=== PATIENT | male | born 1955 | race Caucasian/White ===

== ENCOUNTER 2018-04-16 12:30 | Emergency (ER) | payer BC ==
[2018-04-16 13:09] VITALS: RESP 18
[2018-04-16] MEDS ORDERED: HYDROcodone/APAP 5-325MG 1 EACH TAB PO STA (13:46)
--- NOTE | 2018-04-16 14:23 | XR ---
Left wrist 4 views. History pain after falling. Comparison none. FINDINGS: There is mild deformity of the distal radius that could relate to old fracture. I see no acute fractu re nor dislocation. Scaphoid is intact. There is mild spurring at the first carpometacarpal joint. IMPRESSION: No acute abnormality of the left wrist.
--- NOTE | 2018-04-16 14:24 | XR ---
Left shoulder 3 views. History pain after falling. Comparison none. FINDINGS: There is comminuted fractures of the midshaft of the clavicle. There is 50% offset of the major fragm ents. The glenohumeral joint is anatomic. Proximal humerus is intact. Scapula appears intact. IMPRESSION: Comminuted clavicle fracture.
[2018-04-16] MEDS ORDERED: ACET/COD 300 MG/30 MG STARTER PACK 6 TAB BTL PO STA (15:14)
--- NOTE | 2018-04-16 15:15 | ED ---
Upper Extremity HPI - General Chief Complaint: Extremity Injury, Upper Stated Complaint: fall/shoulder pain Time Seen by Provider: 04/16/18 13:14 Source: patient Mode of arrival: ambulatory Limitations: no limitations - History of Present Illness Initial Comments: Pleasant well appearing 63yo male presenting today for cc of left shoulder pain status post fall. Patient states at 12 PM this afternoon he fell on his left shoulder after slipping on ice. Patient states he did hit his head but he states it was slightly-he denies any headache nausea vomiting or neck pain. Patient states most his pain is in the shoulder especially with palpation over the clavicle. Patient denies any numbness, tingling or loss sensation of the upper extremities, patient denies any low back or thoracic back pain. Patient denies any lower extremity pain, numbness tingling or loss sensation of the upper or lower extremities. Patient states he is unable to move the left shoulder secondary to pain, he states he does have some pain at the left wrist but not as severe as the left shoulder. Remaining review of systems negative, patient denies any recent fever, chills, shortness of breath, chest pain, back pain, abdominal pain, dysuria or hematuria, constipation or diarrhea, headaches or visual changes, or any other complaints. Upon arrival patient's vital signs are within normal limits. Patient is not appearing acute distress. - Related Data Home Medications Medication Instructions Recorded Confirmed Krill Oil 500 mg PO DAILY 04/16/18 04/16/18 Multivitamins, Thera [Multivitamin 1 tab PO DAILY 04/16/18 04/16/18 (formulary)] Ubidecarenone [Co Q-10] 100 mg PO DAILY 04/16/18 04/16/18 Allergies Allergy/AdvReac Type Severity Reaction Status Date / Time No Known Allergies Allergy Verified 04/16/18 13:31 Review of Systems ROS Statement: Those systems with pertinent positive or pertinent negative responses have been documented in the HPI. ROS Other: All systems not noted in ROS Statement are negative. Past Medical History Past Medical History: No Reported History History of Any Multi-Drug Resistant Organisms: None Reported Past Surgical History: No Surgical Hx Reported Past Psychological History: No Psychological Hx Reported Smoking Status: Never smoker Past Alcohol Use History: None Reported Past Drug Use History: None Reported General Exam - General Exam Comments Initial Comments: General: The patient is awake and alert, in no distress, and does not appear acutely ill. Eye: +# mm pupils are equal, round and reactive to light, extra-ocular movements are intact. No nystagmus. There is normal conjunctiva bilaterally. No signs of icterus. Ears, nose, mouth and throat: There are moist mucous membranes and no oral lesions. Neck: The neck is supple, there is no tenderness or JVD. Cardiovascular: There is a regular rate and rhythm. No murmur, rub or gallop is appreciated. Respiratory: Lungs are clear to auscultation, respirations are non-labored, breath sounds are equal. No wheezes, stridor, rales, or rhonchi. Musculoskeletal: Upon inspection of the left shoulder there is no gross deformity or tenting of the clavicle. Patient is tender to palpation of the left clavicle and anterior shoulder. No tenderness to palpation of the scapula. Patient has no tenderness to palpation of the elbow, he is tender to palpation over the left wrist. Patient is able to fully range at the left elbow and left wrist without limitations of range of motion. There is no scaphoid tenderness. Patient is able to make the okay fingers crossed thumbs- up and extend at the wrist bilaterally ulnar median and radial nerve appear intact. Patient has intact finger opposition. Patient has no bad anesthesia. He has full sensation of the upper extremities equal and comparison bilaterally. Capillary refill is less than 2 seconds. Radial pulses are +2 equal bilaterally. There is no midline tenderness to palpation of the cervical spine. There is no midline tenderness to patient of the lower thoracic and lumbar spine. Patient has no paravertebral tenderness. Patient has final 5 strength of lower extremities equal bilaterally. Neurological: A&O x 3. CN II-XII intact, There are no obvious motor or sensory deficits. Coordination appears grossly intact. Speech is normal. Skin: Skin is warm and dry and no rashes or lesions are noted. Psychiatric: Cooperative, appropriate mood & affect, normal judgment. Limitations: no limitations Course Vital Signs 04/16/18 04/16/18 13:07 15:13 Temperature 98.2 F 98.0 F Pulse Rate 84 73 Respiratory 18 18 Rate Blood Pressure 116/75 123/91 O2 Sat by Pulse 96 98 Oximetry - Reevaluation(s) Reevaluation #1: Patient refused CAT scan of the head and neck stating he does not feel this is necessary, he denies any neck pain or headache. He states he did not hit his head hard and this would be a waste of money. I did discuss risks involved without imaging studies, patient states he would like to avoid extra costs and does not want any imaging studies of his neck or head. She does not have any focal neurological deficits or midline titers patient of the cervical spine. 04/16/18 Medical Decision Making - Medical Decision Making 63-year-old male presenting for left shoulder pain. Patient did have mild head injury, denied any neurological symptoms. No focal neurological deficits. He did refuse CAT scan of the head or neck. Patient x-ray revealed a comminuted left clavicle fracture, there is no tenting. Patient is neurovascular intact. At this time after reviewing imaging studies with attending provider Dr. Dominic Love he recommended sling and discharged with orthopedic follow-up. Patient is agreeable plan and discharge patient given pain medications in the emergency department. Disposition Clinical Impression: Fracture of left clavicle Disposition: HOME SELF-CARE Condition: Good Instructions (If sedation given, give patient instructions): Clavicle Fracture (ED) Additional Instructions: Please use medication as discussed. Please follow-up with surgery within the next 1-2 days.. Please return to emergency room if the symptoms increase or worsen or for any other concerns, numbness, tingling loss sensation, coolness or pallor of the extremity, pain appears out of proportion. Is patient prescribed a controlled substance at d/c from ED?: No Referrals: Duke Winkler MD [Primary Care Provider] - 1-2 days Chung Santos DO [Doctor of Osteopathic Medicine] - 1-2 days Time of Disposition: 15:14
[2018-04-16 15:18] VITALS: BP 123/91; PULSE 73; TEMP 98
== END 2018-04-16 15:39 | disposition home or self-care (01) ==
LOC: EC 12:30
DX: S42.022A Displaced fracture of shaft of left clavicle, initial encounter for closed fracture (principal); S09.90XA Unspecified injury of head, initial encounter; W00.0XXA Fall on same level due to ice and snow, initial encounter
CPT/HCPCS: 99283

== ENCOUNTER 2018-12-06 02:30 | Emergency (ER) | payer BC ==
--- NOTE | 2018-12-06 02:53 | ED ---
Chest Pain HPI - General Chief Complaint: Chest Pain Stated Complaint: Nausea,Chest Pain Time Seen by Provider: 12/06/18 02:43 Source: patient Mode of arrival: ambulatory Limitations: no limitations - History of Present Illness Initial Comments: Patient is 63-year-old man who presents to be evaluated for epigastric pain that developed approximately 2 hours ago while he was trying sleep. Patient not able to characterize the pain, but does state that it is constant and moderate in severity. He has not noted worsening factors, but he does state it feels a little better if he remains "bent over." The patient states that the pain had been preceded by having woken up feeling nauseated and then vomiting. It was shortly after the patient had vomiting that the pain developed. Patient did not see any blood or coffee-ground material. No change in bowel movements. Patient states that there is just a trace of nausea remaining but no further vomiting. MD Complaint: chest pain Onset/Timin -: hour(s) Onset: during rest Pain Location: epigastric Pain Radiation: none Severity: moderate Quality: other (Patient not able to further characterize the sensation other than pain) Consistency: constant Improves With: nothing Anginal Symptoms: nausea, vomiting Treatments Prior to Arrival: none - Related Data Home Medications Medication Instructions Recorded Confirmed Krill Oil 500 mg PO DAILY 04/16/18 04/16/18 Multivitamins, Thera [Multivitamin 1 tab PO DAILY 04/16/18 04/16/18 (formulary)] Ubidecarenone [Co Q-10] 100 mg PO DAILY 04/16/18 04/16/18 Allergies Allergy/AdvReac Type Severity Reaction Status Date / Time No Known Allergies Allergy Verified 12/06/18 02:36 Review of Systems ROS Statement: Those systems with pertinent positive or pertinent negative responses have been documented in the HPI. ROS Other: All systems not noted in ROS Statement are negative. Constitutional: Denies: fever, chills Respiratory: Denies: cough, dyspnea Cardiovascular: Reports: as per HPI, chest pain. Denies: palpitations, orthopnea, edema, syncope Gastrointestinal: Reports: as per HPI, abdominal pain, nausea. Denies: vomiting, diarrhea, melena, hematochezia Genitourinary: Denies: dysuria, hematuria Musculoskeletal: Denies: back pain Skin: Denies: rash Neurological: Denies: headache, weakness EKG Findings - EKG Results: EKG: interpreted by ALISA OLMOS, sinus rhythm, normal axis, normal QRS, normal ST/T, no acute changes EKG shows: bradycardia (Rate 57 bpm) Past Medical History Past Medical History: No Reported History History of Any Multi-Drug Resistant Organisms: None Reported Past Surgical History: No Surgical Hx Reported Past Psychological History: No Psychological Hx Reported Smoking Status: Never smoker Past Alcohol Use History: None Reported Past Drug Use History: None Reported General Exam Limitations: no limitations General appearance: alert, in no apparent distress Head exam: Present: atraumatic, normocephalic Eye exam: Present: normal appearance. Absent: scleral icterus, conjunctival injection Respiratory exam: Present: normal lung sounds bilaterally. Absent: respiratory distress, wheezes, rales, rhonchi, stridor Cardiovascular Exam: Present: regular rate, normal rhythm, normal heart sounds. Absent: systolic murmur, diastolic murmur, rubs, gallop GI/Abdominal exam: Present: soft. Absent: distended, tenderness, guarding, rebound, rigid, mass Extremities exam: Present: normal inspection, normal capillary refill. Absent: pedal edema, calf tenderness Back exam: Present: normal inspection. Absent: CVA tenderness (R), CVA tenderness (L), vertebral tenderness Neurological exam: Present: alert Skin exam: Present: warm, dry, intact, normal color. Absent: rash Course Vital Signs 12/06/18 12/06/18 12/06/18 02:35 02:54 03:05 Temperature 97.5 F L Pulse Rate 50 L 52 L Pulse Rate [ 56 L Can Bander Operator ] Respiratory 20 18 Rate Blood Pressure 112/69 117/73 O2 Sat by Pulse 99 99 Oximetry 12/06/18 03:51 Temperature Pulse Rate 55 L Pulse Rate [ Can Bander Operator ] Respiratory 16 Rate Blood Pressure 107/67 O2 Sat by Pulse 97 Oximetry Disposition Clinical Impression: Chest pain Disposition: HOME SELF-CARE Condition: Good Instructions (If sedation given, give patient instructions): Chest Pain (ED) Is patient prescribed a controlled substance at d/c from ED?: No Referrals: None,Stated [Primary Care Provider] - 1-2 days
[2018-12-06] MEDS ORDERED: MORPHINE SULFATE 4 MG/ML SYRINGE IV STA (03:00)
--- NOTE | 2018-12-06 03:05 | XR ---
EXAMINATION TYPE: XR chest 2V DATE OF EXAM: 12/06/2018 COMPARISON: NONE HISTORY: Chest pain TECHNIQUE: Frontal and lateral views of the chest are obtained. FINDINGS: Heart and mediastinum are normal. Lungs are clear. Diaphragm is normal. Bony thorax is int act. There are chest leads. There is old healed left clavicle fracture. IMPRESSION: No active cardiopulmonary disease.
[2018-12-06 03:23] LABS: Basophils % (A) 1 %; Eosinophils # (A) 0.1 k/uL (0-0.7); Eosinophils % (A) 1 %; HCT 43.7 % (39.0-53.0); Lymphocytes # (A) 1.6 k/uL (1.0-4.8); Lymphocytes % (A) 21 %; MCH 29.1 pg (25.0-35.0); MCV 90.9 fL (80.0-100.0); Mean Platelet Volume 7.1; Monocytes # (A) 0.4 k/uL (0-1.0); Monocytes % (A) 5 %; Neutrophils # (A) 5.4 k/uL (1.3-7.7); Neutrophils % (A) 70 %; Platelet Count 284 k/uL (150-450); RBC 4.81 m/uL (4.30-5.90); RDW 12.5 % (11.5-15.5); WBC 7.8 k/uL (3.8-10.6)
[2018-12-06 03:35] LABS: ALT 30 U/L (21-72); AST 32 U/L (17-59); African American GFR (CKD) >90 (>60 ml/min/1.73 sqM); Albumin 4.3 g/dL (3.5-5.0); Alkaline Phosphatase 100 U/L (38-126); Amylase 78 U/L (30-110); Anion Gap 9 mmol/L; Blood Urea Nitrogen 11 mg/dL (9-20); Calcium 9.7 mg/dL (8.4-10.2); Carbon Dioxide 29 mmol/L (22-30); Chloride 103 mmol/L (98-107); Glucose 125 mg/dL (74-99); Potassium 4.3 mmol/L (3.5-5.1); Sodium 141 mmol/L (137-145); Total Bilirubin 0.4 mg/dL (0.2-1.3); Total Protein 7.5 g/dL (6.3-8.2)
[2018-12-06 03:51] VITALS: RESP 16
[2018-12-06 03:52] LABS: Partial Thromboplastin Time 25.4 sec (22.0-30.0); Prothrombin Time 10.6 sec (9.0-12.0)
[2018-12-06 04:41] VITALS: BP 103/73; PULSE 57; TEMP 98
== END 2018-12-06 04:41 | disposition home or self-care (01) ==
LOC: EC 02:30
DX: R07.9 Chest pain, unspecified (principal); R10.13 Epigastric pain; R11.2 Nausea with vomiting, unspecified
CPT/HCPCS: 36415; 93005; 80053; 82150; 83690; 83735; 84484; 85025; 85610; 85730; 71046; 99285; 96374; J2270

== ENCOUNTER 2020-11-16 09:34 | Inpatient (IN) | payer BC, MEDICARE ==
[2020-11-16] MEDS ORDERED: ALBUTEROL HFA INHALER INHALATION STA (10:38)
[2020-11-16] MEDS ORDERED: ACETAMINOPHEN TAB 500 MG TAB PO STA (10:38)
--- NOTE | 2020-11-16 11:51 | XR ---
EXAMINATION TYPE: XR chest 1V portable DATE OF EXAM: 11/16/2020 COMPARISON: 12/06/2018 HISTORY: 65 years Male. STUDY INDICATION GIVEN: Suspected COVID-19 pneumonia . TECHNIQUE: Portable chest radiograph IMPRESSION: No specific bibasilar patchy opacities could be on the basis of atypical pneumonia or atelectasis. No focal consolidation, pneumothorax or pleural effusion seen. Normal cardiomediastinal silhouette. No acute osseous abnormality. Round well-defined density projects over the right humerus and just inferior to the acromion, was not seen on prior chest radiograph, could represent a loose body or perhaps this may be external to the patient.
[2020-11-16] MEDS: DEXAMETHASONE SOD PHOSPHATE 10 MG/ML 1 ML VIAL IV SCH (11:55)
[2020-11-16 12:24] LABS: Basophils % (A) 0 %; Eosinophils % (A) 0 %; HCT 38.4 % (39.0-53.0); HGB 13.8 gm/dL (13.0-17.5); Hyperchromasia Slight; Lymphocytes # (A) 0.7 k/uL (1.0-4.8); Lymphocytes % (A) 13 %; MCH 30.5 pg (25.0-35.0); MCHC 35.9 g/dL (31.0-37.0); MCV 85.1 fL (80.0-100.0); Monocytes # (A) 0.2 k/uL (0-1.0); Monocytes % (A) 5 %; Neutrophils % (A) 80 %; Platelet Count 201 k/uL (150-450); RBC 4.51 m/uL (4.30-5.90)
--- NOTE | 2020-11-16 12:29 | ED ---
SOB HPI - General Chief Complaint: Shortness of Breath Stated Complaint: diarrhea/vomiting Source: patient Mode of arrival: ambulatory Limitations: no limitations - History of Present Illness Initial Comments: 65-year-old male with no reported past history of present to emergency room with reported shortness of breath. Patient states that for the past one week he has been short of breath with a cough. He also states that he is not eating due to nausea, vomiting and diarrhea. He denies sick contacts with similar symptoms. Denies shortness of breath. No previous history of cardiac or pulmonary issues. He is not vaccinated against Covid. Denies any chest pain. Upon arrival patient's oxygen saturation saturations are 85%. Denies history of COPD, congestive heart failure. No other alleviating, precipitating or modifying factors - Related Data Home Medications Medication Instructions Recorded Confirmed Ascorbic Acid [Vitamin C] 500 mg PO DAILY 11/16/20 11/16/20 Cholecalciferol [Vitamin D3 (25 25 mcg PO DAILY 11/16/20 11/16/20 Mcg = 1000 Iu)] Zinc 50 mg PO DAILY 11/16/20 11/16/20 Allergies Allergy/AdvReac Type Severity Reaction Status Date / Time No Known Allergies Allergy Verified 11/16/20 11:41 Review of Systems ROS Statement: Those systems with pertinent positive or pertinent negative responses have been documented in the HPI. ROS Other: All systems not noted in ROS Statement are negative. Past Medical History Past Medical History: No Reported History History of Any Multi-Drug Resistant Organisms: None Reported Past Surgical History: No Surgical Hx Reported Past Psychological History: No Psychological Hx Reported Smoking Status: Never smoker Past Alcohol Use History: None Reported Past Drug Use History: None Reported General Exam Limitations: no limitations Course Vital Signs 11/16/20 11/16/20 11/16/20 09:41 09:43 11:59 Temperature 97.3 F L Pulse Rate 94 84 Respiratory 26 H 22 18 Rate Blood Pressure 114/75 113/79 O2 Sat by Pulse 85 L 96 Oximetry 11/16/20 15:57 Temperature Pulse Rate 90 Respiratory 18 Rate Blood Pressure 100/62 O2 Sat by Pulse 96 Oximetry Medical Decision Making - Medical Decision Making Upon arrival patient was placed into room 4. There are history and physical exam was performed. Patient is placed on 5 L of oxygen via nasal cannula with improvement in his oxygenation. IV is established. Laboratory studies are conduct his. D-dimer 0.79. Lactic acid 2.3. Creatinine highly elevated at 1.4. Covid is detected. Chest x-ray is performed which demonstrates IVs are patchy opacities. Patient is sent back for a CT which does demonstrate scattered patchy peripheral groundglass opacities. COPD with mild emphysema. I discussed results the patient. He is adamant that he wants to go home at this time. I did call and seek with the patient's . She has called and speak with additional family members. Patient is able to speak with his family who do recommend that he stay due to his hypoxia. Patient does agree to stay. I did order Remdesmivir, 6 mg of Decadron and an albuterol inhaler. Spoke with Dr. Lawrence who agreed to admit the patient. He is currently awaiting a bed on the floor - Lab Data Result diagrams: 11/16/20 11:58 11/16/20 11:58 Lab Results 11/16/20 11/16/20 11/16/20 Range/Units 10:29 11:58 11:58 WBC 5.0 (3.8-10.6) k/uL RBC 4.51 (4.30-5.90) m/uL Hgb 13.8 (13.0-17.5) gm/dL Hct 38.4 L (39.0-53.0) % MCV 85.1 (80.0-100.0) fL MCH 30.5 (25.0-35.0) pg MCHC 35.9 (31.0-37.0) g/dL RDW 13.0 (11.5-15.5) % Plt Count 201 (150-450) k/uL MPV 9.0 Neutrophils % 80 % Lymphocytes % 13 % Monocytes % 5 % Eosinophils % 0 % Basophils % 0 % Neutrophils # 4.0 (1.3-7.7) k/uL Lymphocytes # 0.7 L (1.0-4.8) k/uL Monocytes # 0.2 (0-1.0) k/uL Eosinophils # 0.0 (0-0.7) k/uL Basophils # 0.0 (0-0.2) k/uL Hyperchromasia Slight PT (9.0-12.0) sec INR (<1.2) APTT (22.0-30.0) sec D-Dimer (<0.60) mg/L FEU Sodium (137-145) mmol/L Potassium (3.5-5.1) mmol/L Chloride (98-107) mmol/L Carbon Dioxide (22-30) mmol/L Anion Gap mmol/L BUN (9-20) mg/dL Creatinine (0.66-1.25) mg/dL Est GFR (CKD-EPI)AfAm (>60 ml/min/1.73 sqM) Est GFR (CKD-EPI)NonAf (>60 ml/min/1.73 sqM) Glucose (74-99) mg/dL Lactic Ac Sepsis Rflx Plasma Lactic Acid Manuel (0.7-2.0) mmol/L Calcium (8.4-10.2) mg/dL Magnesium (1.6-2.3) mg/dL Total Bilirubin (0.2-1.3) mg/dL AST (17-59) U/L ALT (4-49) U/L Alkaline Phosphatase (38-126) U/L Troponin I <0.012 (0.000-0.034) ng/mL Total Protein (6.3-8.2) g/dL Albumin (3.5-5.0) g/dL Coronavirus (PCR) Detected A (Not Detectd) 11/16/20 11/16/20 11/16/20 Range/Units 11:58 11:58 11:58 WBC (3.8-10.6) k/uL RBC (4.30-5.90) m/uL Hgb (13.0-17.5) gm/dL Hct (39.0-53.0) % MCV (80.0-100.0) fL MCH (25.0-35.0) pg MCHC (31.0-37.0) g/dL RDW (11.5-15.5) % Plt Count (150-450) k/uL MPV Neutrophils % % Lymphocytes % % Monocytes % % Eosinophils % % Basophils % % Neutrophils # (1.3-7.7) k/uL Lymphocytes # (1.0-4.8) k/uL Monocytes # (0-1.0) k/uL Eosinophils # (0-0.7) k/uL Basophils # (0-0.2) k/uL Hyperchromasia PT 9.9 (9.0-12.0) sec INR 0.9 (<1.2) APTT 24.1 (22.0-30.0) sec D-Dimer 0.79 H (<0.60) mg/L FEU Sodium 135 L (137-145) mmol/L Potassium 4.1 (3.5-5.1) mmol/L Chloride 103 (98-107) mmol/L Carbon Dioxide 20 L (22-30) mmol/L Anion Gap 12 mmol/L BUN 52 H (9-20) mg/dL Creatinine 1.42 H (0.66-1.25) mg/dL Est GFR (CKD-EPI)AfAm 60 (>60 ml/min/1.73 sqM) Est GFR (CKD-EPI)NonAf 52 (>60 ml/min/1.73 sqM) Glucose 138 H (74-99) mg/dL Lactic Ac Sepsis Rflx Plasma Lactic Acid Manuel 2.3 H* (0.7-2.0) mmol/L Calcium 8.7 (8.4-10.2) mg/dL Magnesium 2.4 H (1.6-2.3) mg/dL Total Bilirubin 0.7 (0.2-1.3) mg/dL AST 92 H (17-59) U/L ALT 30 (4-49) U/L Alkaline Phosphatase 63 (38-126) U/L Troponin I (0.000-0.034) ng/mL Total Protein 6.8 (6.3-8.2) g/dL Albumin 3.8 (3.5-5.0) g/dL Coronavirus (PCR) (Not Detectd) 11/16/20 Range/Units 12:57 WBC (3.8-10.6) k/uL RBC (4.30-5.90) m/uL Hgb (13.0-17.5) gm/dL Hct (39.0-53.0) % MCV (80.0-100.0) fL MCH (25.0-35.0) pg MCHC (31.0-37.0) g/dL RDW (11.5-15.5) % Plt Count (150-450) k/uL MPV Neutrophils % % Lymphocytes % % Monocytes % % Eosinophils % % Basophils % % Neutrophils # (1.3-7.7) k/uL Lymphocytes # (1.0-4.8) k/uL Monocytes # (0-1.0) k/uL Eosinophils # (0-0.7) k/uL Basophils # (0-0.2) k/uL Hyperchromasia PT (9.0-12.0) sec INR (<1.2) APTT (22.0-30.0) sec D-Dimer (<0.60) mg/L FEU Sodium (137-145) mmol/L Potassium (3.5-5.1) mmol/L Chloride (98-107) mmol/L Carbon Dioxide (22-30) mmol/L Anion Gap mmol/L BUN (9-20) mg/dL Creatinine (0.66-1.25) mg/dL Est GFR (CKD-EPI)AfAm (>60 ml/min/1.73 sqM) Est GFR (CKD-EPI)NonAf (>60 ml/min/1.73 sqM) Glucose (74-99) mg/dL Lactic Ac Sepsis Rflx Y Plasma Lactic Acid Manuel (0.7-2.0) mmol/L Calcium (8.4-10.2) mg/dL Magnesium (1.6-2.3) mg/dL Total Bilirubin (0.2-1.3) mg/dL AST (17-59) U/L ALT (4-49) U/L Alkaline Phosphatase (38-126) U/L Troponin I (0.000-0.034) ng/mL Total Protein (6.3-8.2) g/dL Albumin (3.5-5.0) g/dL Coronavirus (PCR) (Not Detectd) - EKG Data EKG Comments: EKG demonstrates normal sinus rhythm with a ventricular rate 87. QRS 72. QTC of 425. Significant baseline artifact. No acute ST segment elevations or depressions appreciated Disposition Clinical Impression: COVID-19, Hypoxia Disposition: ADMITTED IP TO THIS HOSP Condition: Serious Is patient prescribed a controlled substance at d/c from ED?: No Decision to Admit Reason: Admit from EC Decision Date: 11/16/20 Decision Time: 15:43
[2020-11-16 12:34] LABS: Albumin 3.8 g/dL (3.5-5.0); Calcium 8.7 mg/dL (8.4-10.2); Magnesium 2.4 mg/dL (1.6-2.3); Potassium 4.1 mmol/L (3.5-5.1); Total Bilirubin 0.7 mg/dL (0.2-1.3); Total Protein 6.8 g/dL (6.3-8.2)
[2020-11-16 12:49] LABS: INR 0.9 (<1.2); Partial Thromboplastin Time 24.1 sec (22.0-30.0); Prothrombin Time 9.9 sec (9.0-12.0)
[2020-11-16] MEDS ORDERED: SODIUM CHLORIDE 0.9% 500 ML 500 ML IV ONE (13:21)
[2020-11-16] MEDS ORDERED: diphenhydrAMINE 50 MG/ML 1 ML VIAL IVP STA (14:04)
[2020-11-16] MEDS ORDERED: METOCLOPRAMIDE 5 MG/ML 2 ML VIAL IVP STA (14:04)
--- NOTE | 2020-11-16 14:11 | CT ---
EXAMINATION TYPE: CT chest angio for PE DATE OF EXAM: 11/16/2020 COMPARISON: Radiograph same day HISTORY: 65-year-old male Shortness of breath. TECHNIQUE: Contiguous axial scanning of the chest performed with IV Contrast, patient injected with 1 00 mL of Isovue 370. Coronal/sagittal MIP reconstructions performed. CT DLP: 307.7 mGycm Automated exposure control for dose reduction was used. FINDINGS: Heart normal size without pericardial effusion. Borderline ectasia ascending aorta at 3.5 cm. Dimension arch vessel branching anatomy. Mild atheroscl erotic arch calcifications. Numerous scattered nonenlarged mediastinal lymph nodes. Some of these are prominent measuring up to 8 mm, upper right paratracheal and 1.0 cm subcarinal. Satisfactory opacification of the pulmonary arterial system without evidence for pulmonary embolus. Biapical pleural-parenchymal scarring. Focal opacity posterior right apex measures 1.7 cm. Scattered patchy peripheral groundglass changes are present, greatest in the lower lungs. There is al so some mild bronchiolectasis is noted in the lower lungs. Mild centrilobular emphysema. Left kidney asymmetrically atrophic. 1.7 cm hypodensity central right liver lobe likely a cyst. Bones: Mild degenerative disc disease mid thoracic spine. IMPRESSION: 1. NO EVIDENCE FOR PULMONARY EMBOLUS. 2. SCATTERED PATCHY PERIPHERAL GROUNDGLASS. MORE CONFLUENT GROUNDGLASS IN THE LOWER LUNGS. SOME DIFFE RENTIAL CONSIDERATIONS INCLUDE COVID PNEUMONIA, HYPERSENSITIVITY PNEUMONITIS, AND INTERSTITIAL PNEUMO NITIS SUCH NSIP, FINANCIAL ADMINISTRATOR, OR DIP. 3. COPD WITH MILD EMPHYSEMA. THERE IS BIAPICAL PLEURAL PARENCHYMAL SCARRING BUT A MORE FOCAL 1.7 CM D ENSITY IN THE POSTERIOR RIGHT APEX. SCARRING IS SUSPECTED. A [address] MON[address] FOLLOW-UP CT TO ENSURE STABILITY .
[2020-11-16] MEDS ORDERED: IBUPROFEN 400 MG TAB PO PRN (15:43)
[2020-11-16] MEDS ORDERED: ACETAMINOPHEN TAB 325 MG TAB PO PRN (15:43)
[2020-11-16] MEDS ORDERED: NALOXONE 0.4 MG/ML 1 ML VIAL IV PRN (15:43)
[2020-11-16] MEDS ORDERED: REMDESIVIR 200 MG in SODIUM CHLORIDE 0.9% 250 ML IVPB ONE (16:30)
[2020-11-16] MEDS ORDERED: ALPRAZolam 0.25 MG TAB PO PRN (17:14)
[2020-11-16] MEDS ORDERED: HYDROcodone/APAP 5-325MG 1 EACH TAB PO PRN (17:14)
[2020-11-16] MEDS ORDERED: TEMAZEPAM 15 MG CAP PO PRN (17:14)
--- NOTE | 2020-11-16 18:12 | HP ---
HISTORY AND PHYSICAL DATE OF SERVICE: 11/16/2020. CHIEF COMPLAINTS: Shortness of breath, diarrhea, vomiting. HISTORY OF PRESENT ILLNESS: This 65-year-old gentleman with a past medical history of no significant medical issues apparently not being followed by any family physician in the outpatient setting was not feeling well for the past several days. Patient initially had showed cough and shortness of breath for the last 4 days which is increasing in intensity. The patient also has nausea, vomiting, diarrhea also. The patient is not eating anything. Patient came to [facility] and found to be hypoxic at 85% on room air and the patient also had Covid 19 positive. D-dimer was positive. The patient also had elevated inflammatory markers. Lactic acid also elevated and creatinine is 1.42. The patient also had a chest CTA which was reviewed personally by me showed scattered patchy opacities and some COPD also highly suggestive of Covid 19 interstitial pneumonia. The patient admitted for further evaluation and treatment. Apparently multiple members of family including the patient's brother, [id number] and niece of Covid 19 last year. The patient has not taken the vaccine yet. There is no history of rigors or chills. No history of headache, loss of consciousness or seizures at this time. PAST MEDICAL HISTORY: No history of any medical or surgical issues. MEDICATIONS: None. ALLERGIES: None. FAMILY HISTORY: History of Covid 19 as mentioned earlier, otherwise no history of any heart disease or strokes in the family. SOCIAL HISTORY: No history of smoking, no history of alcohol intake. REVIEW OF SYSTEMS: ENT: No diminished vision. No diminished hearing. CARDIOVASCULAR as mentioned earlier. RESPIRATORY: As mentioned earlier. GI: No nausea, no vomiting. no dysuria or hematuria. NERVOUS SYSTEM: No numbness or weakness. ALLERGY/IMMUNOLOGY: No history of asthma or hayfever. MUSCULOSKELETAL: As mentioned earlier. HEMATOLOGY/ONCOLOGY: No history of anemia. ENDOCRINE: No history of diabetes or hypothyroidism. CONSTITUTIONAL: As mentioned earlier. DERMATOLOGY: Negative. RHEUMATOLOGY: Negative. PSYCHIATRIC: As mentioned earlier. PHYSICAL EXAMINATION: Alert and oriented times three. Pulse is 94. Blood pressure 140/75. Respirations 23. Temperature 97.3, pulse ox 84 percent on room air. HEENT: Conjunctivae normal. Oral mucosa moist. NECK is no JVD. No carotid bruit. No lymph node enlargement. CARDIOVASCULAR system: S1, S2 muffled. RESPIRATION: Breath sounds diminished in the bases. A few scattered rhonchi. ABDOMEN: Soft, nontender. LEGS no edema. No swelling. NERVOUS SYSTEM: Higher functions as mentioned earlier. Moves all four limbs. No focal motor or sensory deficits. LYMPHATICS: No lymph nodes palpable in the neck, axillae or groin. SKIN: No ulcer, no rash and no bleeding. JOINTS: No active deforming arthropathy. LABS: WBC 5, hemoglobin 13.8. Sodium 135, potassium 4.1. Glucose 138. Lactic acid is 2.3. Magnesium is 2.4. ASSESSMENT: 1. Acute COVID-19 infection as well as acute bilateral interstitial pneumonia with acute hypoxic respiratory failure, present on admission. 2. Acute renal failure with severe from acute tubular necrosis, dehydration, present on admission. 3. Nausea, vomiting, diarrhea, possibly secondary to Covid 19. 4. Hyponatremia. 5. Elevated lactic acid secondary from Covid 19 and dehydration. 6. Elevated AST. 7. Elevated D-dimer without any evidence of any acute pulmonary embolism. 8. FULL CODE. RECOMMENDATIONS: This 65-year-old gentleman who presented with multiple complex medical issues, we will monitor the patient closely, continue the current medications, management and symptomatic treatment. Otherwise, at this time, I would recommend Remdesivir, Dexamethasone, Lovenox, vitamin supplements, may consult with Pulmonology and we will continue to monitor the IV fluids. Prognosis guarded because of multiple complex medical issues. Further recommendations to follow. I would also recommend the patient follow up with primary physician closely after discharge. MMODL / IJN: [id number] /
[2020-11-16] MEDS: SODIUM CHLORIDE 0.9% 1,000 ML IV SCH ×2 (20:36→23:17)
[2020-11-16] MEDS: ENOXAPARIN 40 MG/0.4 ML SYRINGE SQ SCH (20:37)
[2020-11-16] MEDS: ZINC SULFATE 220 MG CAP PO SCH (20:37)
[2020-11-16] MEDS: PANTOPRAZOLE 40 MG/10 ML VIAL IVP SCH (20:37)
[2020-11-16] MEDS: CHOLECALCIFEROL 25 MCG (1000 IU) TABLET PO SCH (20:37)
[2020-11-16] MEDS: ASCORBIC ACID 500 MG TAB PO SCH (20:37)
[2020-11-16] MEDS: ALBUTEROL HFA INHALER INHALATION SCH (20:40)
[2020-11-17 06:02] LABS: Basophils % (A) 0 %; Eosinophils % (A) 0 %; HCT 32.6 % (39.0-53.0); HGB 11.5 gm/dL (13.0-17.5); Hyperchromasia Slight; Lymphocytes # (A) 0.8 k/uL (1.0-4.8); Lymphocytes % (A) 20 %; MCH 29.7 pg (25.0-35.0); MCHC 35.3 g/dL (31.0-37.0); MCV 84.2 fL (80.0-100.0); Mean Platelet Volume 9.5; Monocytes # (A) 0.2 k/uL (0-1.0); Monocytes % (A) 5 %; Neutrophils # (A) 2.9 k/uL (1.3-7.7); Neutrophils % (A) 72 %; Platelet Count 143 k/uL (150-450); RBC 3.87 m/uL (4.30-5.90)
[2020-11-17 07:04] LABS: Appearance,Urine Clear (Clear); Bacteria,Urine Rare /hpf; Bilirubin,Urine Negative (Negative); Blood,Urine Moderate (Negative); Color,Urine Yellow; Glucose,Urine (UA) Negative (Negative); Hyaline Casts,Urine 3 /lpf (0-2); Ketones,Urine Negative (Negative); Leukocyte Esterase,Urine Negative (Negative); Mucus,Urine Rare /hpf; Nitrite,Urine Negative (Negative); Protein,Urine 2+ (Negative); RBC,Urine 6 /hpf (0-5); Urobilinogen,Urine <2.0 mg/dL (<2.0); WBC,Urine <1 /hpf (0-5)
[2020-11-17] MEDS: PANTOPRAZOLE 40 MG/10 ML VIAL IVP SCH ×2 (08:31→21:14)
[2020-11-17] MEDS: ASCORBIC ACID 500 MG TAB PO SCH (08:32)
[2020-11-17] MEDS: ZINC SULFATE 220 MG CAP PO SCH (08:32)
[2020-11-17] MEDS: CHOLECALCIFEROL 25 MCG (1000 IU) TABLET PO SCH (08:32)
[2020-11-17] MEDS: DEXAMETHASONE SOD PHOSPHATE 10 MG/ML 1 ML VIAL IV SCH (08:32)
[2020-11-17] MEDS: ENOXAPARIN 40 MG/0.4 ML SYRINGE SQ SCH (08:33)
[2020-11-17] MEDS: SODIUM CHLORIDE 0.9% 1,000 ML IV SCH ×2 (08:42→21:25)
[2020-11-17] MEDS: ALBUTEROL HFA INHALER INHALATION SCH ×4 (09:04→21:46)
[2020-11-17 11:47] LABS: African American GFR (CKD) 81.2 (60.0-200.0); Albumin 3.3 g/dL (3.80-4.90); Albumin/Globulin Ratio 1.57 (1.60-3.17); Anion Gap 10.8 mmol/L (4.00-12.00); BUN/Creat Ratio 41.82 Ratio (12.00-20.00); Calcium 7.8 mg/dL (8.7-10.3); Carbon Dioxide 16.2 mmol/L (21.6-31.8); Globulin 2.1 g/dL (1.6-3.3); Non-African American GFR(CKD) 70.1 (60.0-200.0); Potassium 4.2 mmol/L (3.5-5.5); Total Bilirubin 0.3 mg/dL (0.2-1.2); Total Protein 5.4 g/dL (6.2-8.2)
[2020-11-17] MEDS: DOXYCYCLINE 100 MG CAP PO SCH ×2 (12:25→21:14)
--- NOTE | 2020-11-17 12:43 | P.CNPUL ---
History of Present Illness Consult date: 11/17/20 Requesting physician: Sho Lawrence Reason for consult: dyspnea, cough, abnormal CXR/CT Chief complaint: Shortness of breath, nausea vomiting diarrhea History of present illness: This is 65-year-old gentleman with no significant past medical history. He had been sick about 5 days with shortness of breath cough. He also had nausea, vomiting and diarrhea. He was found to be hypoxemic with O2 saturation 85% on room air at rest. CT angiogram revealed no evidence of pulmonary embolism. There is scattered patchy peripheral groundglass opacities consistent with COVID-19 pneumonia. COVID-19 test is positive. He is unvaccinated. White count 4.0. Hemoglobin 14.5. Platelets 143. Lymphocytes 0.8. D-dimer 0.79. Sodium 137. Potassium 4.2. Creatinine 1.1. Pro-calcitonin 0.62. He is seen today in consultation on the regular medical floor. He sitting up in bed. Awake and alert in no acute distress. Maintaining O2 saturation 90% on 2 L/m per nasal cannula. He's been afebrile. Hemodynamically stable. He's been initiated on Decadron, Lovenox, vitamin supplements. Started on Remdesivir yesterday. Review of Systems REVIEW OF SYSTEMS: CONSTITUTIONAL: Denies any recent significant weight loss or weight gain. EYES: Denies change in vision. EARS, NOSE, MOUTH, THROAT: Denies headaches, denies sore throat. CARDIOVASCULAR: Denies chest pain, palpitations or syncopal episodes. RESPIRATORY: Positive for shortness of breath, cough, congestion no hemoptysis. GASTROINTESTINAL: Positive for nausea, vomiting, diarrhea GENITOURINARY: Denies hematuria, denies infections. MUSKULOSKELETAL: Denies pain, denies swelling. INTEGUMENTARY: Denies rash, denies eczema. NEUROLOGICAL: Denies recent memory loss, no recent seizure activity. PSYCHIATRIC: Denies anxiety, denies depression. HEMATOLOGIC/LYMPHATIC: Denies anemia, denies enlarged lymph nodes. Past Medical History Past Medical History: No Reported History History of Any Multi-Drug Resistant Organisms: None Reported Past Surgical History: No Surgical Hx Reported Past Psychological History: No Psychological Hx Reported Smoking Status: Former smoker Past Alcohol Use History: None Reported Past Drug Use History: None Reported Medications and Allergies Home Medications Medication Instructions Recorded Confirmed Type Ascorbic Acid [Vitamin C] 500 mg PO DAILY 11/16/20 11/16/20 History Cholecalciferol [Vitamin D3 (25 25 mcg PO DAILY 11/16/20 11/16/20 History Mcg = 1000 Iu)] Zinc 50 mg PO DAILY 11/16/20 11/16/20 History Allergies Allergy/AdvReac Type Severity Reaction Status Date / Time No Known Allergies Allergy Verified 11/16/20 11:41 Physical Exam Vitals: Vital Signs Temp Pulse Pulse Resp BP BP Pulse Ox 11/17/20 08:00 74 18 11/17/20 06:11 97.6 F 74 18 100/64 90 L 11/17/20 03:00 97.2 F L 75 17 95/60 92 L 11/16/20 22:01 97.4 F L 65 17 100/61 92 L 11/16/20 20:00 97.8 F 66 18 105/65 94 L 11/16/20 18:24 97.8 F 69 18 110/62 98 11/16/20 15:57 90 18 100/62 96 Intake and Output 11/16/20 11/17/20 11/17/20 22:59 06:59 14:59 Intake Total 1150 Balance 1150 Intake: Intake, IV Titration 1150 Amount Remdesivir 200 mg In 250 Sodium Chloride 0.9% 250 ml @ 250 mls/hr IVPB ONCE ONE Rx#:[id number] Sodium Chloride 0.9% 1, 900 000 ml @ 75 mls/hr IV . [id number] [facility] Rx#:[id number] Other: # Voids 0 2 Weight 72.575 kg GENERAL EXAM: Alert, 65-year-old male patient, on 2 L nasal cannula, fairly comfortable in no apparent distress. HEAD: Normocephalic. EYES: Normal reaction of pupils, equal size. NOSE: Clear with pink turbinates. THROAT: No erythema or exudates. NECK: No masses, no JVD. CHEST: No chest wall deformity. LUNGS: Equal air entry with crackles in the posterior bases. CVS: S1 and S2 normal with no audible murmur, regular rhythm. ABDOMEN: No hepatosplenomegaly, normal bowel sounds, no guarding or rigidity. SPINE: No scoliosis or deformity SKIN: No rashes CENTRAL NERVOUS SYSTEM: No focal deficits, tone is normal in all 4 extremities. EXTREMITIES: There is no peripheral edema. No clubbing, no cyanosis. Peripheral pulses are intact. Results - Laboratory Findings CBC and BMP: 11/17/20 04:27 11/17/20 04:27 PT/INR, D-dimer PT 9.9 sec (9.0-12.0) 11/16/20 11:58 INR 0.9 (<1.2) 11/16/20 11:58 D-Dimer 0.79 mg/L FEU (<0.60) H 11/16/20 11:58 Abnormal lab findings: Abnormal Labs 11/16/20 11/16/20 11/16/20 10:29 11:58 11:58 RBC Hgb Hct 38.4 L Plt Count Lymphocytes # 0.7 L D-Dimer 0.79 H Sodium Chloride Carbon Dioxide BUN Creatinine BUN/Creatinine Ratio Glucose Plasma Lactic Acid Manuel Calcium Magnesium AST Total Protein Albumin Albumin/Globulin Ratio Procalcitonin Ur Specific [place] Urine Protein Urine Blood Urine RBC Urine Bacteria Hyaline Casts Urine Mucus Coronavirus (PCR) Detected A 11/16/20 11/16/20 11/16/20 11:58 11:58 11:58 RBC Hgb Hct Plt Count Lymphocytes # D-Dimer Sodium 135 L Chloride Carbon Dioxide 20 L BUN 52 H Creatinine 1.42 H BUN/Creatinine Ratio Glucose 138 H Plasma Lactic Acid Manuel 2.3 H* Calcium Magnesium 2.4 H AST 92 H Total Protein Albumin Albumin/Globulin Ratio Procalcitonin 0.62 H Ur Specific [place] Urine Protein Urine Blood Urine RBC Urine Bacteria Hyaline Casts Urine Mucus Coronavirus (PCR) 11/17/20 11/17/20 11/17/20 04:27 04:27 06:22 RBC 3.87 L Hgb 11.5 L Hct 32.6 L Plt Count 143 L Lymphocytes # 0.8 L D-Dimer Sodium Chloride 110 H Carbon Dioxide 16.2 L BUN 46.0 H Creatinine BUN/Creatinine Ratio 41.82 H Glucose 111 H Plasma Lactic Acid Manuel Calcium 7.8 L Magnesium AST 89 H Total Protein 5.4 L Albumin 3.30 L Albumin/Globulin Ratio 1.57 L Procalcitonin Ur Specific [place] 1.050 H Urine Protein 2+ H Urine Blood Moderate H Urine RBC 6 H Urine Bacteria Rare H Hyaline Casts 3 H Urine Mucus Rare H Coronavirus (PCR) - Diagnostic Findings CT scan - chest: image reviewed Assessment and Plan Assessment: 1 Acute hypoxemic respiratory failure secondary to acute COVID-19 pneumonia. Unvaccinated. Initiated on Remdesivir 11/16/2020 2 Elevated pro calcitonin, initiated on doxycycline 3 Acute renal failure secondary to dehydration, improving Plan: The patient was seen and evaluated by Dr. Roberson Chest x-ray, CAT scans and labs reviewed Continued on Remdesivir, Lovenox, Decadron, vitamin supplements Initiated on doxycycline Follow-up chest x-ray, inflammatory markers in a.m. Titrate the FiO2 as tolerated We will continue to follow and make further recommendations based on his clinical status I, the cosigning physician, performed a history & physical examination of the patient. Lungs sounds with crackles in the posterior bases. Maintaining O2 saturations in the 90s on 2 L/m per nasal cannula I discussed the assessment and plan of care with my nurse practitioner, Chelsea Ramos. I attest to the above consultation as dictated by her. Time with Patient: Greater than 30
[2020-11-17] MEDS: REMDESIVIR 100 MG in SODIUM CHLORIDE 0.9% 250 ML IVPB SCH (15:37)
--- NOTE | 2020-11-17 21:10 | PN ---
PROGRESS NOTE DATE OF SERVICE: 11/17/2020 This 65-year-old gentleman who was admitted with shortness of breath, diarrhea, vomiting, had features of Covid 19. The patient is started on Remdesivir. No chest pain. No palpitations. No fever. PHYSICAL EXAMINATION: Alert and oriented x3. Pulse 82. Blood pressure 99/70, respiration 18, temperature 98 degrees, pulse ox 92% on 2 L. HEENT: Conjunctivae normal. NECK: No JVD. CARDIOVASCULAR: S1, S2 muffled. RESPIRATIONS: Breath sounds diminished in the bases. A few scattered rhonchi. ABDOMEN: Soft. NERVOUS SYSTEM: No focal deficits. LABS: WBC 4, hemoglobin 11.5, sodium 137, potassium 4.2. Glucose 111. UA noted. Procalcitonin is 0.62. ASSESSMENT: 1. Acute Covid 19 infection as well as acute bilateral interstitial pneumonia with acute hypoxic respiratory failure, present on admission. 2. Acute renal failure with severe acute tubular necrosis with dehydration, present on admission. 3. Nausea, vomiting, diarrhea, possibly secondary to Covid 19. 4. Hyponatremia. 5. Elevated lactic acid secondary to Covid 19 and dehydration. 6. Elevated AST. 7. Elevated D-dimer without any evidence of acute pulmonary embolism. 8. FULL CODE. RECOMMENDATIONS AND DISCUSSION: Continue current medications, monitoring, management and symptomatic treatment. Otherwise, continue the Remdesivir, continue the rest of medications. Closely follow with pulmonary. Guarded prognosis. Further recommendations to follow. MMODL / IJN: [id number] /
--- NOTE | 2020-11-17 23:59 | P.CONS ---
History of Present Illness - Reason for Consult Consult date: 11/17/20 coivid 19 pneumonia Requesting physician: Sho Lawrence - Chief Complaint shortness of breath and cough x 1 week - History of Present Illness History of present illness : Patient is 65-year-old female presenting to the ER yesterday afternoon for evaluation of increasing shortness of breath and this patient symptom has been going on for about a week before presentation hospital symptom mostly shortness of breath on minimal exertion even at rest patient also have a cough which is moderate intensity but not bringing up any sputum patient complaining of feeling nauseated and did have decreased oral intake but no vomiting and did have some diarrhea patient denies having any sick contact with the symptoms the patient presented to hospital on arrival to the ER patient was afebrile patient was hypoxic with O2 sats of 85% room air currently 93% on 2 L patient did have a normal white count with lymphopenia D-dimer was mildly elevated BUN and creatinine was mildly elevated lactic acid was elevated AST was elevated for concern 0.62 patient did have a chest x-ray nonspecific bibasilar patchy density patient also have a CT angiogram of the chest that was negative for PE did show scattered patchy peripheral groundglass opacities patient has been admitted to hospital, infectious disease was consulted for further management Review of system: CONSTITUTIONAL: Positive for weakness denies high-grade fever. EYES: No complaint. ENT: No complaint. RESPIRATORY: As per history of present illness. CARDIOVASCULAR: No complaint. GENITOURINARY: No complaint. GASTROINTESTINAL: As per history of present illness. MUSCULOSKELETAL: No complaint. INTEGUMENTARY: No complaint. PSYCHOLOGIC: No complaint. ENDOCRINE: No complaint. NEUROLOGIC: No complaint. Past medical history : Reviewed, documented below Past surgical history : Reviewed, documented below Social history: Reviewed, documented below Medications: Reviewed, as documented below EXAMINATION: Vital sigans= Reviewed and documented below GENERAL DESCRIPTION: Elderly male lying in bed, no distress. No tachypnea or accessory muscle of respiration use. HEENT: Shows Pallor , no scleral icterus. Oral mucous membrane is dry. NECK: Trachea central, no thyromegaly. LUNGS: Unlabored breathing. Coarse breath sounds in the base bilaterally. No wheeze or crackle. HEART: S1, S2, regular rate and rhythm. ABDOMEN: Soft, no tenderness , guarding or rigidity EXTREMITIES: No edema of feet. SKIN: No rash, no masses palpable. NEUROLOGICAL: The patient is awake, alert, oriented x3, mood and affect normal. LABS AND RADIOLOGY: Reviewed results see below Assessment : Patient presented to hospital with increasing shortness of breath cough in this patient who did have evidence of multifocal pneumonia on the chest x-ray and CT did have hypoxemia secondary acute COVID-19 infection with the symptom onset about 7 days ago currently within therapeutic window for remdesivir per [facility] policy Plan: 1-remdesivir 200 g x 1 followed by 100 milligrams daily already started to continue 2-Lovenox dexamethasone zinc and ascorbic acid 3-droplet isolation and respiratory support We will follow on clinical condition and cultures to further adjust medication if needed Thank you for this consultation we will follow the patient along with you Past Medical History Past Medical History: No Reported History History of Any Multi-Drug Resistant Organisms: None Reported Past Surgical History: No Surgical Hx Reported Past Psychological History: No Psychological Hx Reported Smoking Status: Former smoker Past Alcohol Use History: None Reported Past Drug Use History: None Reported Medications and Allergies Home Medications Medication Instructions Recorded Confirmed Type Ascorbic Acid [Vitamin C] 500 mg PO DAILY 11/16/20 11/16/20 History Cholecalciferol [Vitamin D3 (25 25 mcg PO DAILY 11/16/20 11/16/20 History Mcg = 1000 Iu)] Zinc 50 mg PO DAILY 11/16/20 11/16/20 History Allergies Allergy/AdvReac Type Severity Reaction Status Date / Time No Known Allergies Allergy Verified 11/16/20 11:41 Physical Exam Vitals: Vital Signs Temp Pulse Resp BP Pulse Ox 11/17/20 14:00 97.9 F 82 18 130/79 96 11/17/20 08:00 74 18 11/17/20 06:11 97.6 F 74 18 100/64 90 L 11/17/20 03:00 97.2 F L 75 17 95/60 92 L 11/16/20 22:01 97.4 F L 65 17 100/61 92 L 11/16/20 20:00 97.8 F 66 18 105/65 94 L 11/16/20 18:24 97.8 F 69 18 110/62 98 Intake and Output 11/17/20 11/17/20 11/17/20 06:59 14:59 22:59 Intake Total 1150 Balance 1150 Intake: Intake, IV Titration 1150 Amount Remdesivir 200 mg In 250 Sodium Chloride 0.9% 250 ml @ 250 mls/hr IVPB ONCE ONE Rx#:[id number] Sodium Chloride 0.9% 1, 900 000 ml @ 75 mls/hr IV . [id number] [facility] Rx#:[id number] Other: # Voids 2 Results CBC & Chem 7: 11/17/20 04:27 11/17/20 04:27 Labs: Abnormal Lab Results - Last 24 Hours (Table) 11/16/20 11/17/20 11/17/20 Range/Units 11:58 04:27 04:27 RBC 3.87 L (4.30-5.90) m/uL Hgb 11.5 L (13.0-17.5) gm/dL Hct 32.6 L (39.0-53.0) % Plt Count 143 L (150-450) k/uL Lymphocytes # 0.8 L (1.0-4.8) k/uL Chloride 110 H (96-109) mmol/L Carbon Dioxide 16.2 L (21.6-31.8) mmol/L BUN 46.0 H (9.0-27.0) mg/dL BUN/Creatinine Ratio 41.82 H (12.00-20.00) Ratio Glucose 111 H (70-110) mg/dL Calcium 7.8 L (8.7-10.3) mg/dL AST 89 H (14-35) U/L Total Protein 5.4 L (6.2-8.2) g/dL Albumin 3.30 L (3.80-4.90) g/dL Albumin/Globulin Ratio 1.57 L (1.60-3.17) g/dL Procalcitonin 0.62 H (0.02-0.09) ng/mL Ur Specific [place] (1.001-1.035) Urine Protein (Negative) Urine Blood (Negative) Urine RBC (0-5) /hpf Urine Bacteria (None) /hpf Hyaline Casts (0-2) /lpf Urine Mucus (None) /hpf 11/17/20 Range/Units 06:22 RBC (4.30-5.90) m/uL Hgb (13.0-17.5) gm/dL Hct (39.0-53.0) % Plt Count (150-450) k/uL Lymphocytes # (1.0-4.8) k/uL Chloride (96-109) mmol/L Carbon Dioxide (21.6-31.8) mmol/L BUN (9.0-27.0) mg/dL BUN/Creatinine Ratio (12.00-20.00) Ratio Glucose (70-110) mg/dL Calcium (8.7-10.3) mg/dL AST (14-35) U/L Total Protein (6.2-8.2) g/dL Albumin (3.80-4.90) g/dL Albumin/Globulin Ratio (1.60-3.17) g/dL Procalcitonin (0.02-0.09) ng/mL Ur Specific [place] 1.050 H (1.001-1.035) Urine Protein 2+ H (Negative) Urine Blood Moderate H (Negative) Urine RBC 6 H (0-5) /hpf Urine Bacteria Rare H (None) /hpf Hyaline Casts 3 H (0-2) /lpf Urine Mucus Rare H (None) /hpf
[2020-11-18] MEDS: ALBUTEROL HFA INHALER INHALATION SCH ×4 (08:39→21:52)
--- NOTE | 2020-11-18 08:43 | XR ---
EXAMINATION TYPE: XR chest 1V portable DATE OF EXAM: 11/18/2020 COMPARISON: Chest x-ray and CT 11/16/2020 HISTORY: Covid 19 pneumonia TECHNIQUE: Single frontal view of the chest is obtained. FINDINGS: Some minimal patchy peripheral airspace disease is present. Cardiac mediastinal silhouette appears somewhat prominently, technique is apical lordotic, patient with prominent epicardial fat pa ds. There are overlying leads. No evident pneumothorax or pleural effusion. IMPRESSION: Findings consistent with patient's history Covid pneumonia
[2020-11-18 09:02] LABS: C Reactive Protein 2.8 mg/dL (<1.0)
[2020-11-18] MEDS: DEXAMETHASONE SOD PHOSPHATE 10 MG/ML 1 ML VIAL IV SCH (10:06)
[2020-11-18] MEDS: ENOXAPARIN 40 MG/0.4 ML SYRINGE SQ SCH (10:06)
[2020-11-18] MEDS: DOXYCYCLINE 100 MG CAP PO SCH ×2 (10:07→19:43)
[2020-11-18] MEDS: PANTOPRAZOLE 40 MG TABLET PO SCH ×2 (10:07→17:45)
[2020-11-18] MEDS: ASCORBIC ACID 500 MG TAB PO SCH (10:07)
[2020-11-18] MEDS: CHOLECALCIFEROL 25 MCG (1000 IU) TABLET PO SCH (10:07)
[2020-11-18] MEDS: ZINC SULFATE 220 MG CAP PO SCH (10:07)
[2020-11-18] MEDS: SODIUM CHLORIDE 0.9% 1,000 ML IV SCH ×2 (13:21→23:37)
--- NOTE | 2020-11-18 14:02 | P.PN ---
Subjective Progress Note Date: 11/18/20 Principal diagnosis: Coronavirus pneumonia. This is 65-year-old gentleman with no significant past medical history. He had been sick about 5 days with shortness of breath cough. He also had nausea, vomiting and diarrhea. He was found to be hypoxemic with O2 saturation 85% on room air at rest. CT angiogram revealed no evidence of pulmonary embolism. There is scattered patchy peripheral groundglass opacities consistent with COVID-19 pneumonia. COVID-19 test is positive. He is unvaccinated. White count 4.0. Hemoglobin 14.5. Platelets 143. Lymphocytes 0.8. D-dimer 0.79. Sodium 137. Potassium 4.2. Creatinine 1.1. Pro-calcitonin 0.62. He is seen today in consultation on the regular medical floor. He sitting up in bed. Awake and alert in no acute distress. Maintaining O2 saturation 90% on 2 L/m per nasal cannula. He's been afebrile. Hemodynamically stable. He's been initiated on Decadron, Lovenox, vitamin supplements. Started on Remdesivir yesterday. Progress note dated 11/18/2020. 65-year-old male seen by our nurse practitioner yesterday. The patient has no past medical history. He came into the hospital 5 days of increasing shortness of breath. He also apparently had some nausea, vomiting, and diarrhea. His room air resting saturation was 85%. A CT angiogram was negative for pulmonary embolus some. He did test positive for Covid 19 pneumonia. The patient's doing well. The patient's on 2 L nasal cannula. Feeling almost back to baseline. The patient in my opinion could probably be discharged home, possibly requiring oxygen therapy. He started REM therapy, the day before yesterday. Labs today included d-dimer 0.44 and LDH of 2005 and a C-reactive protein at 2.8. Chest x- ray was not too impressive but CT angiogram did show evidence of diffuse bilateral infiltrates, consistent with coronavirus pneumonia. Objective - Vital Signs Vital signs: Vital Signs Temp 97.6 F 11/18/20 10:00 Pulse 87 11/18/20 10:00 Resp 15 11/18/20 10:00 BP 109/67 11/18/20 10:00 Pulse Ox 85 L 11/18/20 13:22 Intake & Output 11/17/20 11/18/20 11/18/20 18:59 06:59 18:59 Intake Total 900 Balance 900 Intake: Intake, IV Titration 900 Amount Sodium Chloride 0.9% 1, 900 000 ml @ 75 mls/hr IV . [id number] Rx#:[id number] Other: # Voids 3 2 # Bowel Movements 1 - Exam No acute distress, oriented 3. No respiratory distress or audible wheezing or use of accessory muscles or conversational dyspnea. The patient's currently on 2 L nasal cannula. Saturations are excellent. HEENT examination is grossly unremarkable. Neck supple. Full range of motion. No adenopathy thyromegaly or neck vein distention. Cardiovascular examination reveals regular rhythm rate. S1-S2 normal. No S3 or S4. No discernible murmur noted. Heart sounds are distant. Heart rate 87 bpm. Lungs reveal mostly clear breath sounds. Mild scattered rhonchi are noted. No wheezes or crackles. Breath sounds are equal bilaterally. Abdomen soft bowel sounds are heard. No masses or tenderness. Extremities are intact. No cyanosis clubbing or edema. Skin is without rash or lesion. Neurologic examination is brief but nonfocal. - Labs CBC & Chem 7: 11/17/20 04:27 11/17/20 04:27 Labs: Abnormal Lab Results - Last 24 Hours (Table) 11/18/20 Range/Units 07:13 Lactate Dehydrogenase 2006 H (313-618) U/L C-Reactive Protein 2.8 H (<1.0) mg/dL Assessment and Plan Assessment: Acute hypoxemic respiratory failure secondary to COVID 19 pneumonia. Acute renal failure secondary to dehydration. No clearcut evidence of bacterial infection. Plan: Plan dated 11/18/2020. Currently, the patient is very stable. The patient is getting REM. The patient is also on Lovenox, and Decadron. The patient's getting doxycycline based on an elevated pro calcitonin level. Clinically the patient's very stable. The patient could be considered for possible discharge. We will leave that up to the primary. He does not need to stay in the hospital in my opinion complete 5 days of REM. Should he worsen, and be discharged home, the patient can certainly come back to the hospital to be reevaluated. Time with Patient: Less than 30
[2020-11-18] MEDS: REMDESIVIR 100 MG in SODIUM CHLORIDE 0.9% 250 ML IVPB SCH (17:45)
--- NOTE | 2020-11-18 19:38 | PN ---
PROGRESS NOTE DATE OF SERVICE: 11/28/2020. HISTORY: This 65-year-old gentleman was admitted with acute Covid 19 infection and acute bilateral interstitial pneumonia. Being closely monitored. The most recent chest x-ray done today which was reviewed personally by me showed some improvement. The patient's sats are 85 percent on room air. The patient will need home O2. Pulmonary is following the patient closely as well as Infectious Disease. The patient was is receiving Remdesivir as well as the rest of the medications. PHYSICAL EXAMINATION: Alert and oriented x3. Pulse is 87. Blood pressure 120/60, respiration 14, temperature 97.2 pulse ox as mentioned earlier. CHEST: Clear. Few scattered rhonchi. ABDOMEN: Soft. NERVOUS SYSTEM: No focal deficits. LABS: Hemoglobin 7.5, sodium 137, potassium 4.2, and LDH is 206 and C-reactive protein is 2.8. UA noted. ASSESSMENT: 1. Acute Covid-19 infection as well as acute bilateral interstitial pneumonia with acute hypoxic respiratory failure present on admission. 2. Acute renal failure with acute tubular necrosis, dehydration, present on admission. 3. Nausea, vomiting, diarrhea, possibly secondary to Covid-19. 4. Hyponatremia. 5. Elevated lactic acid secondary to Covid-19 and dehydration. 6. Elevated AST. 7. Elevated D-dimer without any evidence of acute pulmonary embolism. 8. FULL CODE. RECOMMENDATIONS AND DISCUSSION: I recommend to continue current medications, monitoring and symptomatic treatment. At this time I recommend repeat labs. Continue with the current medications including Remdesivir. Prognosis guarded. Further recommendations to follow. MMODL / IJN: [id number] /
--- NOTE | 2020-11-19 05:56 | PN ---
PROGRESS NOTE DATE OF SERVICE: 11/18/2020 REASON FOR FOLLOWUP: COVID-19 pneumonia. INTERVAL HISTORY: Patient is afebrile. The patient is breathing comfortably. Denies having any chest pain. No shortness of breath. Occasional cough. No abdominal pain or diarrhea. PHYSICAL EXAMINATION: Blood pressure 114/68 with a pulse of 83. Temperature is 97.5. He is 98% on 2 L nasal cannula. General description is an elderly male lying in bed in no distress. Respiratory system: Unlabored breathing. Coarse breath sounds in the base bilaterally. No wheeze. Heart S1, S2. Regular rate and rhythm. Abdomen soft, no tenderness. LABS: Hemoglobin 11.5, white count 4.0, BUN of 46, creatinine is 1.1. IMPRESSION/PLAN: Patient with acute COVID-19 pneumonia. Patient has shown some clinical improvement. The patient to continue with dexamethasone, Lovenox, zinc and ascorbic acid. No need for any systemic antibiotic therapy. Continue supportive care. MMODL / IJN: [id number] /
[2020-11-19 07:07] LABS: Potassium 4.1 mmol/L (3.5-5.1)
[2020-11-19 07:08] LABS: African American GFR (CKD) >90 (>60 ml/min/1.73 sqM); Anion Gap 5 mmol/L; Blood Urea Nitrogen 24 mg/dL (9-20); Calcium 7.8 mg/dL (8.4-10.2); Carbon Dioxide 22 mmol/L (22-30); Chloride 115 mmol/L (98-107); Glucose 113 mg/dL (74-99); Non-African American GFR(CKD) >90 (>60 ml/min/1.73 sqM); Sodium 142 mmol/L (137-145)
[2020-11-19 07:26] LABS: Glucose,Whole Blood 111 mg/dL (75-99)
[2020-11-19] MEDS: ALBUTEROL HFA INHALER INHALATION SCH ×2 (08:40→12:04)
[2020-11-19 09:06] LABS: Basophils # (A) 0.01 X 10*3/uL (0.00-0.10); Basophils % (A) 0.1 %; Eosinophils # (A) 0 X 10*3/uL (0.04-0.35); Eosinophils % (A) 0 %; HGB 9.3 g/dL (13.0-17.0); Lymphocytes # (A) 0.69 X 10*3/uL (0.90-5.00); Lymphocytes % (A) 9.4 %; MCH 28.6 pg (27.0-32.0); MCHC 32.1 g/dL (32.0-37.0); MCV 89.2 fL (80.0-97.0); Mean Platelet Volume 10.5 fL (9.5-12.2); Monocytes # (A) 0.49 X 10*3/uL (0.20-1.00); Monocytes % (A) 6.6 %; Neutrophils # (A) 5.99 X 10*3/uL (1.80-7.70); Neutrophils % (A) 81.3 %; Platelet Count 201 X 10*3/uL (140-440); RBC 3.25 X 10*6/uL (4.40-5.60); RDW 13.4 % (11.5-14.5); WBC 7.37 X 10*3/uL (4.50-10.00)
[2020-11-19] MEDS: DEXAMETHASONE SOD PHOSPHATE 10 MG/ML 1 ML VIAL IV SCH (09:57)
[2020-11-19] MEDS: ENOXAPARIN 40 MG/0.4 ML SYRINGE SQ SCH (09:58)
[2020-11-19] MEDS: ASCORBIC ACID 500 MG TAB PO SCH (09:58)
[2020-11-19] MEDS: CHOLECALCIFEROL 25 MCG (1000 IU) TABLET PO SCH (09:58)
[2020-11-19] MEDS: DOXYCYCLINE 100 MG CAP PO SCH (09:58)
[2020-11-19] MEDS: PANTOPRAZOLE 40 MG TABLET PO SCH (09:58)
[2020-11-19] MEDS: ZINC SULFATE 220 MG CAP PO SCH (09:58)
--- NOTE | 2020-11-19 10:51 | P.PN ---
Subjective Progress Note Date: 11/19/20 Principal diagnosis: Coronavirus pneumonia. This is 65-year-old gentleman with no significant past medical history. He had been sick about 5 days with shortness of breath cough. He also had nausea, vomiting and diarrhea. He was found to be hypoxemic with O2 saturation 85% on room air at rest. CT angiogram revealed no evidence of pulmonary embolism. There is scattered patchy peripheral groundglass opacities consistent with COVID-19 pneumonia. COVID-19 test is positive. He is unvaccinated. White count 4.0. Hemoglobin 14.5. Platelets 143. Lymphocytes 0.8. D-dimer 0.79. Sodium 137. Potassium 4.2. Creatinine 1.1. Pro-calcitonin 0.62. He is seen today in consultation on the regular medical floor. He sitting up in bed. Awake and alert in no acute distress. Maintaining O2 saturation 90% on 2 L/m per nasal cannula. He's been afebrile. Hemodynamically stable. He's been initiated on Decadron, Lovenox, vitamin supplements. Started on Remdesivir yesterday. Progress note dated 11/18/2020. 65-year-old male seen by our nurse practitioner yesterday. The patient has no past medical history. He came into the hospital 5 days of increasing shortness of breath. He also apparently had some nausea, vomiting, and diarrhea. His room air resting saturation was 85%. A CT angiogram was negative for pulmonary embolus some. He did test positive for Covid 19 pneumonia. The patient's doing well. The patient's on 2 L nasal cannula. Feeling almost back to baseline. The patient in my opinion could probably be discharged home, possibly requiring oxygen therapy. He started REM therapy, the day before yesterday. Labs today included d-dimer 0.44 and LDH of 2005 and a C-reactive protein at 2.8. Chest x- ray was not too impressive but CT angiogram did show evidence of diffuse bilateral infiltrates, consistent with coronavirus pneumonia. Progress note dated 11/19/2020. 65-year-old male, who is again seen in room 484. The patient's doing well. The patient has no significant past medical history. He came to the hospital with 5 days of increasing shortness of breath. The patient also had some GI complaints including nausea, vomiting, diarrhea. His room air resting saturation was mid 80s. CT angiogram was negative for pulmonary embolism. He did test positive for coronavirus infection/pneumonia. Currently he is doing much better. We saw him yesterday, we thought he might be a candidate possible discharge. For some reason, the hospitalist services keep him. Currently, he's on 2.5 liters of nasal O2. White count 7.37, hemoglobin 9.3, hematocrit 29, and platelet count 201,000. Sodium 142, potassium 4.1, chlorides 1:15, CO2 22, a nion gap 5, BUN 24, and creatinine 0.79. LDH from yesterday was 2006. Chest x- ray showed bilateral patchy infiltrates. Objective - Vital Signs Vital signs: Vital Signs Temp 97.5 F L 11/19/20 06:13 Pulse 89 11/19/20 06:13 Resp 17 11/19/20 06:13 BP 123/80 11/19/20 06:13 Pulse Ox 92 L 11/19/20 06:13 Intake & Output 11/18/20 11/19/20 11/19/20 18:59 06:59 18:59 Other: # Voids 2 3 - Exam No acute distress, oriented 3. No respiratory distress or audible wheezing or use of accessory muscles or conversational dyspnea. The patient's currently on 2.5 L nasal cannula. Saturations are excellent. HEENT examination is grossly unremarkable. Neck supple. Full range of motion. No adenopathy thyromegaly or neck vein distention. Cardiovascular examination reveals regular rhythm rate. S1-S2 normal. No S3 or S4. No discernible murmur noted. Heart sounds are distant. Heart rate 89 bpm. Lungs reveal mostly clear breath sounds. Mild scattered rhonchi are noted. No wheezes or crackles. Breath sounds are equal bilaterally. Abdomen soft bowel sounds are heard. No masses or tenderness. Extremities are intact. No cyanosis clubbing or edema. Skin is without rash or lesion. Neurologic examination is brief but nonfocal. - Labs CBC & Chem 7: 11/19/20 06:17 11/19/20 06:17 Labs: Abnormal Lab Results - Last 24 Hours (Table) 11/19/20 11/19/20 11/19/20 Range/Units 06:17 06:17 07:24 RBC 3.25 L (4.40-5.60) X 10*6/uL Hgb 9.3 L (13.0-17.0) g/dL Hct 29.0 L (39.6-50.0) % Immature Gran # 0.19 H (0.00-0.04) X 10*3/uL Lymphocytes # 0.69 L (0.90-5.00) X 10*3/uL Eosinophils # 0 L (0.04-0.35) X 10*3/uL Chloride 115 H (98-107) mmol/L BUN 24 H (9-20) mg/dL Glucose 113 H (74-99) mg/dL POC Glucose (mg/dL) 111 H (75-99) mg/dL Calcium 7.8 L (8.4-10.2) mg/dL Assessment and Plan Assessment: Acute hypoxemic respiratory failure secondary to COVID 19 pneumonia. Acute renal failure secondary to dehydration. No clearcut evidence of bacterial infection. Plan: Plan dated 11/18/2020. Currently, the patient is very stable. The patient is getting REM. The patient is also on Lovenox, and Decadron. The patient's getting doxycycline based on an elevated pro calcitonin level. Clinically the patient's very stable. The patient could be considered for possible discharge. We will leave that up to e primary. He does not need to stay in the hospital in my opinion complete 5 days of REM. Should he worsen, and be discharged home, the patient can certainly come back to the hospital to be reevaluated. Plan dated 11/19/2020. Currently, the patient has been weaned down to 2 and half liters nasal cannula. The patient in my opinion could be a candidate for possible discharge. The patient is currently getting REM. The patient remains on Lovenox and Decadron. The patient's breathing is much more stable today. The patient does not need to stay in the hospital complete 5 days of REM. We will continue to follow make recommendations were appropriate. We did speak to the nurse about the po ssibility of discharge today. Time with Patient: Less than 30
[2020-11-19 11:55] VITALS: BP 172/67; PULSE 90; RESP 20; TEMP 97.7
--- NOTE | 2020-11-19 14:18 | P.DS ---
Providers Date of admission: 11/16/20 15:43 Expected date of discharge: 11/19/20 Attending physician: Sho Lawrence Consults: 11/16/20 15:44 Consult Physician Urgent Consulting Provider: Jean Roberson Consult Reason/Comments: acute hypoxic resp failure, acute covid infection Do you want consulting provider notified?: Yes 11/16/20 17:13 Consult Physician Routine Consulting Provider: Florin Sunshine Consult Reason/Comments: covid Do you want consulting provider notified?: Yes Primary care physician: Stated None Hospital Course: Final diagnosis Acute COVID-19 infection as well as acute bilateral interstitial pneumonia with acute hypoxic respiratory failure, present on admission Acute renal failure with acute tubular necrosis, dehydration, present on admission nausea, vomiting, diarrhea possibly secondary to COVID-19 Hyponatremia elevated lactic acid secondary to COVID-19 and dehydration Elevated AST Elevated d-dimer without any evidence of acute pulmonary embolism Full code Discharge disposition Patient is being discharged in a stable condition with guarded prognosis to home. Patient will follow-up with Dr. Milian in the outpatient setting upon discharge. Patient will continue on vitamin and zinc supplements along with dexamethasone 6 mg for the next 4 days to complete the course. Patient to follow-up with pulmonary outpatient as well. Total time taken is greater than 35 minutes. Hospital course This is a 65-year-old male who was recently admitted with acute COVID-19 infection and acute bilateral interstitial pneumonia being closely monitored. Patient was followed closely by pulmonary and infectious disease. Patient oxygen saturations dipping down to 85% on room air and will require home oxygen at 2 L secondary to COVID-19 pneumonia. Arrangements are being made in case management has prescription to have oxygen delivered to the room before discharge. Patient was continued on Remdesivir and received 3 doses and continued to clinically improve and was also maintained on Lovenox, dexamethasone, vitamin and zinc supplements and will continue with dexamethasone 6 mg for the next 4 days to complete the course and vitamin and zinc supplements as well. Currently no reports of chest pain, worsening shortness of breath, or palpitations. Patient is afebrile. No reports of nausea or vomiting and patient is tolerating diet. Patient will be discharged home today. On exam vital signs are stable. Cardio S1, S2 are muffled. Respiratory system shows diminished breath sounds at the bases with no wheezing or rhonchi noted. Abdomen is soft and nontender. Nervous system shows no focal deficits. Please refer to medication reconciliation sheet for a list of medications. Patient Condition at Discharge: Stable Plan - Discharge Summary Discharge Rx Participant: No New Discharge Prescriptions: New Dexamethasone 6 mg PO DAILY 4 Days #4 tablet Pantoprazole [Protonix] 40 mg PO AC-BID 30 Days #60 tab Zinc Sulfate [Orazinc] 220 mg PO DAILY #30 cap Acetaminophen Tab [Tylenol] 650 mg PO Q6HR PRN #30 tab PRN Reason: Mild Pain Or Fever > 100.5 Albuterol Inhaler [Ventolin Hfa Inhaler] 2 puff INHALATION RT-QID 30 Days #1 gm Continue Cholecalciferol [Vitamin D3 (25 Mcg = 1000 Iu)] 25 mcg PO DAILY Ascorbic Acid [Vitamin C] 500 mg PO DAILY Discontinued Zinc 50 mg PO DAILY Discharge Medication List Ascorbic Acid [Vitamin C] 500 mg PO DAILY 11/16/20 [History] Cholecalciferol [Vitamin D3 (25 Mcg = 1000 Iu)] 25 mcg PO DAILY 11/16/20 [History] Acetaminophen Tab [Tylenol] 650 mg PO Q6HR PRN #30 tab 11/19/20 [Rx] Albuterol Inhaler [Ventolin Hfa Inhaler] 2 puff INHALATION RT-QID 30 Days #1 gm 11/19/20 [Rx] Dexamethasone 6 mg PO DAILY 4 Days #4 tablet 11/19/20 [Rx] Pantoprazole [Protonix] 40 mg PO AC-BID 30 Days #60 tab 11/19/20 [Rx] Zinc Sulfate [Orazinc] 220 mg PO DAILY #30 cap 11/19/20 [Rx] Follow up Appointment(s)/Referral(s): Cody Milian MD [REFERRING] - 1-2 Days (Please call office to schedule a video conference) [facility] [NON-STAFF] - As Needed (oxygen) Patient Instructions/Handouts: Coronavirus Disease 2019 (COVID-19) Activity/Diet/Wound Care/Special Instructions: Activity Limited until follow-up Follow-up with primary care provider on discharge Continue to encourage fluids and rest Monitor for fever and continue with Tylenol and/or Motrin Continue dexamethasone for 4 days to complete the course Continue current diet Follow-up pulmonary outpatient Continue with oxygen at 2 L via nasal cannula secondary to COVID-19 Discharge Disposition: HOME SELF-CARE
--- NOTE | 2020-11-19 21:12 | P.PN ---
Progress Note - Text Progress Note Date: 11/19/20 REASON FOR FOLLOWUP: COVID-19 pneumonia. INTERVAL HISTORY: Patient remains to be afebrile. The patient is breathing comfortably. The patient having any chest pain. No shortness of breath. Occasional cough. No abdominal pain or diarrhea. PHYSICAL EXAMINATION: Blood pressure 110/60 with a pulse of 80. Temperature is 97.5. He is 98% on 2 L nasal cannula. General description is an elderly male lying in bed in no distress. Respiratory system: Unlabored breathing. Coarse breath sounds in the base bilaterally. No wheeze. Heart S1, S2. Regular rate and rhythm. Abdomen soft, no tenderness. LABS: Review of IMPRESSION/PLAN: Patient with acute COVID-19 pneumonia. Patient has shown over all clinical improvement. The patient to finish therapy with short course of dexamethasone,zinc and ascorbic acid. No need for any systemic antibiotic therapy on discharge and close outpatient follow-up
== END 2020-11-19 12:04 | disposition home or self-care (01) | DRG 177 ==
LOC: EC 09:34 → 4SSUR 15:43
PROVIDERS: ADMIT Hospitalist; ATTEND Hospitalist
PROC: XW033E5 Introduction of Remdesivir Anti-infective into Peripheral Vein, Percutaneous Approach, New Technology Group 5 (ICD-10-PCS; principal; 2020-11-16)
DX: U07.1 COVID-19 (principal); J12.82 Pneumonia due to coronavirus disease 2019; J96.01 Acute respiratory failure with hypoxia; N17.0 Acute kidney failure with tubular necrosis; A08.39 Other viral enteritis; E87.1 Hypo-osmolality and hyponatremia; J43.9 Emphysema, unspecified; E86.0 Dehydration; D72.810 Lymphocytopenia; R74.01 Elevation of levels of liver transaminase levels; R79.89 Other specified abnormal findings of blood chemistry; Z79.899 Other long term (current) drug therapy; Z87.891 Personal history of nicotine dependence; Z83.1 Family history of other infectious and parasitic diseases
CPT/HCPCS: 36415; 71045; 71275; 80048; 80053; 81001; 83605; 83615; 83735; 84145; 84484; 85025; 85379; 85610; 85730; 86140; 87635; 93005; 94640; 96360; 96361; 99285

== ENCOUNTER 2020-11-25 14:20 | Inpatient (IN) | payer BC, MEDICARE ==
--- NOTE | 2020-11-25 14:39 | ED ---
General Adult HPI - General Source: patient, EMS Mode of arrival: EMS <DiannaMiracledaksha Redding - Last Filed: 11/25/20 16:09> <Gene Perkins - Last Filed: 11/25/20 16:48> - General Chief complaint: Shortness of Breath Stated complaint: covid+/sob Time Seen by Provider: 11/25/20 14:26 - History of Present Illness Initial comments: Dictation was produced using [employer] dictation software. please excuse any grammatical, word or spelling errors. Chief Complaint: 65-year-old male recently admitted to the hospital and discharged for approximately respiratory failure represents to the emergency department for shortness of breath. History of Present Illness: Patient is 65-year-old male. He was just discharged from the hospital 6 days ago. He was in the hospital for 3 days. He was diagnosed with chronic virus on November 16. He's been symptomatic since November 09. She reports that he was discharged 6 days ago. He was sent home with oxygen. Patient states he is still short of breath. EMS was called. EMS reports that patient was still hypoxic despite supplemental oxygen. Patient denies any chest pain. Denies any constitutional symptoms. MS reports that patient was found to be in the mid 80 percents with supplemental oxygen 3 L. The ROS documented in this emergency department record has been reviewed and c onfirmed by me. Those systems with pertinent positive or negative responses have been documented in the HPI. All other systems are other negative and/or noncontributory. PHYSICAL EXAM: General Impression: Alert and oriented x3, not in acute distress HEENT: Normocephalic atraumatic, extra-ocular movements intact, pupils equal and reactive to light bilaterally, mucous membranes moist. Cardiovascular: Heart regular rate and rhythm Chest: Able to complete full sentences, no retractions, no tachypnea Abdomen: abdomen soft, non-tender, non-distended, no organomegaly Musculoskeletal: Pulses present and equal in all extremities, no peripheral edema Motor: no focal deficits noted Neurological: CN II-XII grossly intact, no focal motor or sensory deficits noted Skin: Intact with no visualized rashes Psych: Normal affect and mood ED course: 65-year-old male presents to the emergency department for persistent hypoxia. Patient's been symptomatic for coronavirus for the last 16 days. He was recently admitted and discharged. Patient persistently hypoxic vital signs upon arrival shows 80% on 6 L nasal cannula. Patient transitioned to BiPAP. EKG interpretation: Ventricular rate 96, normal sinus rhythm, SC interval 138, QRS 80, QTc 462. No SC prolongation, no QTC prolongation, no ST or T-wave changes noted. EKG compared to 11/16/2020 showing no changes. Overall, this EKG is unremarkable Care signed out to Dr. Perkins. (Doug Bustamante) - Related Data Home Medications Medication Instructions Recorded Confirmed Ascorbic Acid [Vitamin C] 500 mg PO DAILY 11/16/20 11/25/20 Cholecalciferol [Vitamin D3 (25 25 mcg PO DAILY 11/16/20 11/25/20 Mcg = 1000 Iu)] Previous Rx's Medication Instructions Recorded Acetaminophen Tab [Tylenol] 650 mg PO Q6HR PRN #30 tab 11/19/20 Albuterol Inhaler [Ventolin Hfa 2 puff INHALATION RT-QID 30 Days 11/19/20 Inhaler] #1 gm Pantoprazole [Protonix] 40 mg PO AC-BID 30 Days #60 tab 11/19/20 Zinc Sulfate [Orazinc] 220 mg PO DAILY #30 cap 11/19/20 Allergies Allergy/AdvReac Type Severity Reaction Status Date / Time No Known Allergies Allergy Verified 11/25/20 15:20 Review of Systems ROS Other: All systems not noted in ROS Statement are negative. <Doug Bustamante - Last Filed: 11/25/20 16:09> ROS Other: All systems not noted in ROS Statement are negative. <Gene Perkins - Last Filed: 11/25/20 16:48> ROS Statement: Those systems with pertinent positive or pertinent negative responses have been documented in the HPI. Past Medical History Past Medical History: No Reported History History of Any Multi-Drug Resistant Organisms: None Reported Past Surgical History: No Surgical Hx Reported Past Psychological History: No Psychological Hx Reported Smoking Status: Former smoker Past Alcohol Use History: None Reported Past Drug Use History: None Reported <Doug Bustamante - Last Filed: 11/25/20 16:09> Course Vital Signs 11/25/20 14:22 Temperature 98.2 F Pulse Rate 100 Respiratory 20 Rate Blood Pressure 122/66 O2 Sat by Pulse 88 L Oximetry Medical Decision Making - Lab Data Result diagrams: 11/25/20 14:43 11/25/20 14:43 <Doug Bustamante - Last Filed: 11/25/20 16:09> - Lab Data Result diagrams: 11/25/20 14:43 11/25/20 14:43 - Radiology Data Radiology results: report reviewed (Computed tomography scan shows positive bilateral lower pulmonary emboli. No heart strain. Worsening groundglass opaci ty.), image reviewed (Chest x-ray shows bilateral lower lobe infiltrates) <Gene Perkins - Last Filed: 11/25/20 16:48> - Medical Decision Making Dr. Mariscal previously discussed case with Dr. Khan who will admit. I did follow-up with computed tomography scan results and spoke with practitioner covering, Palmira Dalton regarding pulmonary embolism. She does request adding heparin. Patient reevaluated and updated. (Gene Perkins) - Lab Data Lab Results 11/25/20 11/25/20 11/25/20 Range/Units 14:43 14:43 14:43 WBC 12.2 H (3.8-10.6) k/uL RBC 3.49 L (4.30-5.90) m/uL Hgb 10.7 L (13.0-17.5) gm/dL Hct 30.4 L (39.0-53.0) % MCV 87.3 (80.0-100.0) fL MCH 30.8 (25.0-35.0) pg MCHC 35.3 (31.0-37.0) g/dL RDW 13.9 (11.5-15.5) % Plt Count 275 (150-450) k/uL MPV 8.0 Neutrophils % 86 % Lymphocytes % 8 % Monocytes % 4 % Eosinophils % 1 % Basophils % 0 % Neutrophils # 10.4 H (1.3-7.7) k/uL Lymphocytes # 1.0 (1.0-4.8) k/uL Monocytes # 0.5 (0-1.0) k/uL Eosinophils # 0.1 (0-0.7) k/uL Basophils # 0.0 (0-0.2) k/uL Poikilocytosis Slight PT 11.5 (9.0-12.0) sec INR 1.1 (<1.2) APTT 21.3 L (22.0-30.0) sec D-Dimer >34.10 H (<0.60) mg/L FEU Sodium 136 L (137-145) mmol/L Potassium 4.2 (3.5-5.1) mmol/L Chloride 104 (98-107) mmol/L Carbon Dioxide 25 (22-30) mmol/L Anion Gap 7 mmol/L BUN 33 H (9-20) mg/dL Creatinine 0.91 (0.66-1.25) mg/dL Est GFR (CKD-EPI)AfAm >90 (>60 ml/min/1.73 sqM) Est GFR (CKD-EPI)NonAf 88 (>60 ml/min/1.73 sqM) Glucose 106 H (74-99) mg/dL Plasma Lactic Acid Manuel (0.7-2.0) mmol/L Calcium 8.1 L (8.4-10.2) mg/dL Magnesium 2.4 H (1.6-2.3) mg/dL Total Bilirubin 1.2 (0.2-1.3) mg/dL AST 49 (17-59) U/L ALT 32 (4-49) U/L Alkaline Phosphatase 87 (38-126) U/L Lactate Dehydrogenase 1359 H (313-618) U/L C-Reactive Protein 18.2 H (<1.0) mg/dL Total Protein 5.8 L (6.3-8.2) g/dL Albumin 2.8 L (3.5-5.0) g/dL 11/25/20 Range/Units 14:43 WBC (3.8-10.6) k/uL RBC (4.30-5.90) m/uL Hgb (13.0-17.5) gm/dL Hct (39.0-53.0) % MCV (80.0-100.0) fL MCH (25.0-35.0) pg MCHC (31.0-37.0) g/dL RDW (11.5-15.5) % Plt Count (150-450) k/uL MPV Neutrophils % % Lymphocytes % % Monocytes % % Eosinophils % % Basophils % % Neutrophils # (1.3-7.7) k/uL Lymphocytes # (1.0-4.8) k/uL Monocytes # (0-1.0) k/uL Eosinophils # (0-0.7) k/uL Basophils # (0-0.2) k/uL Poikilocytosis PT (9.0-12.0) sec INR (<1.2) APTT (22.0-30.0) sec D-Dimer (<0.60) mg/L FEU Sodium (137-145) mmol/L Potassium (3.5-5.1) mmol/L Chloride (98-107) mmol/L Carbon Dioxide (22-30) mmol/L Anion Gap mmol/L BUN (9-20) mg/dL Creatinine (0.66-1.25) mg/dL Est GFR (CKD-EPI)AfAm (>60 ml/min/1.73 sqM) Est GFR (CKD-EPI)NonAf (>60 ml/min/1.73 sqM) Glucose (74-99) mg/dL Plasma Lactic Acid Manuel 2.4 H* (0.7-2.0) mmol/L Calcium (8.4-10.2) mg/dL Magnesium (1.6-2.3) mg/dL Total Bilirubin (0.2-1.3) mg/dL AST (17-59) U/L ALT (4-49) U/L Alkaline Phosphatase (38-126) U/L Lactate Dehydrogenase (313-618) U/L C-Reactive Protein (<1.0) mg/dL Total Protein (6.3-8.2) g/dL Albumin (3.5-5.0) g/dL Disposition <Doug Bustamante - Last Filed: 11/25/20 16:09> Decision Time: 16:46 <Gene Perkins - Last Filed: 11/25/20 16:48> Clinical Impression: COVID-19, Pulmonary embolism Disposition: ADMITTED IP TO THIS HOSP Condition: Serious
--- NOTE | 2020-11-25 14:56 | XR ---
EXAMINATION TYPE: XR chest 1V portable DATE OF EXAM: 11/25/2020 COMPARISON: 11/18/2020 HISTORY: Suspected covid 19 pneumonia, shortness of breath TECHNIQUE: Single frontal view of the chest is obtained. FINDINGS: Patchy basilar airspace disease is present bilaterally. No evident pneumothorax or pleural effusion. Cardiac mediastinal silhouette is stable. IMPRESSION: Correlate for bilateral pneumonia.
[2020-11-25 15:04] LABS: Basophils % (A) 0 %; Eosinophils # (A) 0.1 k/uL (0-0.7); Eosinophils % (A) 1 %; HCT 30.4 % (39.0-53.0); HGB 10.7 gm/dL (13.0-17.5); Lymphocytes % (A) 8 %; MCH 30.8 pg (25.0-35.0); MCHC 35.3 g/dL (31.0-37.0); MCV 87.3 fL (80.0-100.0); Monocytes # (A) 0.5 k/uL (0-1.0); Monocytes % (A) 4 %; Neutrophils # (A) 10.4 k/uL (1.3-7.7); Neutrophils % (A) 86 %; Platelet Count 275 k/uL (150-450); Poikilocytosis Slight; RBC 3.49 m/uL (4.30-5.90); RDW 13.9 % (11.5-15.5); WBC 12.2 k/uL (3.8-10.6)
[2020-11-25 15:06] LABS: ALT 32 U/L (4-49); AST 49 U/L (17-59); African American GFR (CKD) >90 (>60 ml/min/1.73 sqM); Albumin 2.8 g/dL (3.5-5.0); Alkaline Phosphatase 87 U/L (38-126); Anion Gap 7 mmol/L; Blood Urea Nitrogen 33 mg/dL (9-20); Calcium 8.1 mg/dL (8.4-10.2); Carbon Dioxide 25 mmol/L (22-30); Chloride 104 mmol/L (98-107); Glucose 106 mg/dL (74-99); LDH 1359 U/L (313-618); Magnesium 2.4 mg/dL (1.6-2.3); Non-African American GFR(CKD) 88 (>60 ml/min/1.73 sqM); Potassium 4.2 mmol/L (3.5-5.1); Sodium 136 mmol/L (137-145); Total Bilirubin 1.2 mg/dL (0.2-1.3); Total Protein 5.8 g/dL (6.3-8.2)
[2020-11-25 15:19] LABS: C Reactive Protein 18.2 mg/dL (<1.0)
[2020-11-25] MEDS ORDERED: SODIUM CHLORIDE 0.9% 500 ML 500 ML IV STA (15:19)
[2020-11-25 15:21] LABS: INR 1.1 (<1.2); Prothrombin Time 11.5 sec (9.0-12.0)
[2020-11-25 15:27] LABS: Partial Thromboplastin Time 21.3 sec (22.0-30.0)
[2020-11-25] MEDS ORDERED: AZITHROMYCIN 500 MG in SODIUM CHLORIDE 0.9% 250 ML IVPB STA (15:50)
[2020-11-25] MEDS ORDERED: cefTRIAXone IN SWFI 1,000 MG/10 ML SYRINGE IVP STA (15:51)
[2020-11-25] MEDS ORDERED: NALOXONE 0.4 MG/ML 1 ML VIAL IV PRN (16:10)
[2020-11-25] MEDS ORDERED: ONDANSETRON 4 MG/2 ML VIAL IVP PRN (16:10)
[2020-11-25] MEDS ORDERED: ACETAMINOPHEN TAB 325 MG TAB PO PRN (16:10)
--- NOTE | 2020-11-25 16:39 | CT ---
EXAMINATION TYPE: CT angio chest DATE OF EXAM: 11/25/2020 4:15 PM COMPARISON: Prior CTA chest 9 days ago HISTORY: Shortness of breath increased D-Dimer. CT DLP: 259.7 mGycm Automated exposure control for dose reduction was used. CONTRAST: CTA scan of the thorax is performed with IV Contrast, patient injected with 100 mL of Isovue 370, pul monary embolism protocol. MIP images are created and reviewed. FINDINGS: LUNGS: Mild underlying emphysematous change. Bilateral multifocal areas of groundglass opacity and or ganizing consolidation greater in the lower lungs worse upper lungs with interval progression from pr ior CT. No pleural effusion or pneumothorax seen bilaterally MEDIASTINUM: There is satisfactory enhancement of the pulmonary artery and its branches, there is sma ll segmental clot in the right lower lobe axial image 10. Small subsegmental clot left lower lobe pos teriorly beginning on axial image 117 noted. Satisfactory enhancement of the aorta without aneurysm o r dissection. There are increasing prominent thoracic lymph nodes throughout the mediastinum and bila teral hilar region. No cardiomegaly or pericardial effusion is seen. No new right ventricular dilat ation. OTHER: A 1.5 cm lesion central right hepatic lobe favors benign thin-walled cyst axial image 152 IMPRESSION: 1. Small peripheral pulmonary emboli bilateral lower lobes. No RV strain. 2. Worsening bilateral multifocal ground glass opacities and organizing consolidations greater cyst i n the lower lungs consistent with known covid-19 infection progression.
[2020-11-25] MEDS ORDERED: HEPARIN SODIUM 1,000 UN/ML (10ML VL) IV PRN (16:48)
[2020-11-25] MEDS ORDERED: HEPARIN SODIUM 1,000 UN/ML (10ML VL) IV ONE (16:48)
--- NOTE | 2020-11-25 17:20 | P.CNPUL ---
History of Present Illness Consult date: 11/25/20 Reason for consult: pneumonia History of present illness: This is a 65-year-old male patient, who is coming in for worsening shortness of breath and worsening hypoxemia after leaving the hospital around 3 days ago where he received treatment for community related pneumonia. Our practice and services were involved in his care and our nurse practitioners remembered this patient's case. The patient isn't vaccinated 65-year-old male with no si gnificant past medical history, hospitalized approximately a week ago and during the course of his treatment, the patient was given steroids and Remdesivir, and the patient was discharged home on Decadron 6 mg for additional 4 days addition to albuterol rescue inhaler and protonic 40 mg by mouth daily and zinc 220 mg by mouth daily. The patient presented back to the hospital because of worsening shortness of breath. Note that his initial diagnoses was on 11/16/2020. The patient has been symptomatic however since 11/09/2020. Despite his worsening shortness of breath, he denied having any chest pain. He came into the hospital he was found to have a pulse ox in the mid 80s on 3 L of oxygen by nasal cannula. He is afebrile hemodynamically stable. His chest x-ray showed worsening in the lower lobe by a pulmonary infiltrates. He did have some minimal interstitial lung bases especially on the left and there is obvious progression and the chest x-ray findings. White cell count is at 12.2. No lymphopenia. Coagulation profile is within normal. D-dimer is more than 34. BUN is at 33 with a creatinine of 0.9. Lactic S level is at 2.4. LDH was 1359 with a CRP of 18.2. Liver function tests are essentially within normal limits. Based on all this, a CT angiogram of the chest was done and the CTA showed diffuse vascular, infiltrates consistent with community related pneumonia. There is worsening of the multifocal groundglass pulmonary opacities bilaterally with areas of organization consolidation more so in the lower lobes. The same time, there was small peripheral pulmonary emboli bilaterally involving the lower lobes. No RV strain pattern. Doppler of the lower extremity will be ordered and this has not been completed yet. For now, the patient is on IV heparin drip. Steroids will be restarted. He did have home worsening in his oxygenation. He was placed on 6 L initially and later on he was switched to a BiPAP with a full face mask which she is able to tolerate. He is currently at a pressure of 12/5 with an FiO2 of 100%. Cardiac rhythm is sinus. No EKG a bnormalities. Review of Systems Constitutional: Reports fatigue, Reports fever, Reports weakness Eyes: denies as per HPI, denies blurred vision, denies bulging eye, denies decreased vision, denies diplopia, denies discharge, denies dry eye, denies irritation, denies itching, denies pain, denies photophobia, denies loss of peripheral vision, denies loss of vision, denies tunnel vision/blind spots Ears: deny: decreased hearing, ear discharge, earache, tinnitus Ears, nose, mouth and throat: Reports as per HPI Breasts: absent: as per HPI, gynecomastia Cardiovascular: Reports decreased exercise tolerance, Reports dyspnea on exertion Respiratory: Reports dyspnea Gastrointestinal: Reports as per HPI Genitourinary: Reports as per HPI Musculoskeletal: Reports as per HPI Musculoskeletal: absent: ankle pain, ankle stiffness, ankle swelling Integumentary: Reports as per HPI Neurological: Reports as per HPI, Reports weakness Psychiatric: Reports as per HPI Endocrine: Reports as per HPI, Reports fatigue Hematologic/Lymphatic: Reports as per HPI Allergic/Immunologic: Reports as per HPI Past Medical History Past Medical History: No Reported History Additional Past Medical History / Comment(s): Covid 19 pneumonia diagnosed on 11/16/2020, symptoms started on 11/09 2020 History of Any Multi-Drug Resistant Organisms: None Reported Past Surgical History: No Surgical Hx Reported Past Psychological History: No Psychological Hx Reported Smoking Status: Former smoker Past Alcohol Use History: None Reported Past Drug Use History: None Reported Medications and Allergies Home Medications Medication Instructions Recorded Confirmed Type Ascorbic Acid [Vitamin C] 500 mg PO DAILY 11/16/20 11/25/20 History Cholecalciferol [Vitamin D3 (25 25 mcg PO DAILY 11/16/20 11/25/20 History Mcg = 1000 Iu)] Acetaminophen Tab [Tylenol] 650 mg PO Q6HR PRN #30 tab 11/19/20 11/25/20 Rx Albuterol Inhaler [Ventolin Hfa 2 puff INHALATION RT-QID 30 Days 11/19/20 11/25/20 Rx Inhaler] #1 gm Pantoprazole [Protonix] 40 mg PO AC-BID 30 Days #60 tab 11/19/20 11/25/20 Rx Zinc Sulfate [Orazinc] 220 mg PO DAILY #30 cap 11/19/20 11/25/20 Rx Allergies Allergy/AdvReac Type Severity Reaction Status Date / Time No Known Allergies Allergy Verified 11/25/20 15:20 Physical Exam Vitals: Vital Signs Temp Pulse Resp BP Pulse Ox 11/25/20 14:22 98.2 F 100 20 122/66 88 L Intake and Output 11/25/20 11/25/20 11/25/20 06:59 14:59 22:59 Other: Weight 72.575 kg Patient is having some mild labored breathing. He is able to tolerate a full face mask with BiPAP at a pressure of 10 with an FiO2 of 100% HEAD: Normocephalic. EYES: Normal reaction of pupils, equal size. NOSE: Clear with pink turbinates. THROAT: No erythema or exudates. NECK: No masses, no JVD. CHEST: No chest wall deformity. LUNGS: Equal air entry with crackles in the posterior bases. CVS: S1 and S2 normal with no audible murmur, regular rhythm. ABDOMEN: No hepatosplenomegaly, normal bowel sounds, no guarding or rigidity. SPINE: No scoliosis or deformity SKIN: No rashes CENTRAL NERVOUS SYSTEM: No focal deficits, tone is normal in all 4 extremities. EXTREMITIES: There is no peripheral edema. No clubbing, no cyanosis. Peripheral pulses are intact. Results - Laboratory Findings CBC and BMP: 11/25/20 14:43 11/25/20 14:43 PT/INR, D-dimer PT 11.5 sec (9.0-12.0) 11/25/20 14:43 INR 1.1 (<1.2) 11/25/20 14:43 D-Dimer >34.10 mg/L FEU (<0.60) H 11/25/20 14:43 Abnormal lab findings: Abnormal Labs 11/25/20 11/25/20 11/25/20 14:43 14:43 14:43 WBC 12.2 H RBC 3.49 L Hgb 10.7 L Hct 30.4 L Neutrophils # 10.4 H APTT 21.3 L D-Dimer >34.10 H Sodium 136 L BUN 33 H Glucose 106 H Plasma Lactic Acid Manuel Calcium 8.1 L Magnesium 2.4 H Lactate Dehydrogenase 1359 H C-Reactive Protein 18.2 H Total Protein 5.8 L Albumin 2.8 L 11/25/20 14:43 WBC RBC Hgb Hct Neutrophils # APTT D-Dimer Sodium BUN Glucose Plasma Lactic Acid Manuel 2.4 H* Calcium Magnesium Lactate Dehydrogenase C-Reactive Protein Total Protein Albumin - Diagnostic Findings Chest x-ray: image reviewed Assessment and Plan Plan: 1 acute Covid 19 related pneumonia. The patient developed symptoms on 11/09 2020, diagnosed on 11/16/2020, hospitalized and treated with a combination of Decadron and Remdesivir , to be readmitted back to the hospital because of worsening shortness of breath and hypoxemia, and a CT angiogram showing bilateral pulmonary embolism, worsening of the bilateral community related pneumonia and currently the patient is on a BiPAP 2 Covid 19 related pneumonia with interval progression of the right the pulmonary infiltrates 3 bilateral small pulmonary emboli secondary to Covid 19 infection 4 acute hypoxic respiratory failure and the patient is having BiPAP dependent respiratory failure 5 elevated inflammatory markers including d-dimer is and LDH 6 shortness of breath secondary to above Plan Start the patient IV heparin drip per protocol Doppler of the lower extremities 2-D echocardiogram to assess LV function, RV function, pulmonary hypertension Restart steroids and was put the patient also Solu-Medrol 60 mg every 6 hours Continue BiPAP for now Try this patient on a high flow oxygen at a later stage to maintain a saturation above 88% Monitor inflammatory markers Monitor chest x-ray Check pro calcitonin level Will start Baricitinib within next 24 hours if there is no signs of any infection. We'll continue to follow
[2020-11-25] MEDS: SODIUM CHLORIDE 0.9% 1,000 ML IV SCH (17:37)
[2020-11-25] MEDS: HEPARIN SOD,PORK IN 0.45% NACL 25,000 UNIT in 0.45% NACL 1 250ML.BAG IV SCH (17:43)
--- NOTE | 2020-11-25 19:13 | US ---
EXAMINATION TYPE: US venous doppler duplex LE BI DATE OF EXAM: 11/25/2020 7:03 PM COMPARISON: NONE CLINICAL HISTORY: PE, CoVID. SIDE PERFORMED: Bilateral TECHNIQUE: The lower extremity deep venous system is examined utilizing real time linear array sonog filipe with graded compression, doppler sonography and color-flow sonography. VESSELS IMAGED: Common Femoral Vein Deep Femoral Vein Greater Saphenous Vein * Femoral Vein Popliteal Vein Small Saphenous Vein * Proximal Calf Veins (* superficial vessels) Right Leg: Negative for DVT Left Leg: Negative for DVT IMPRESSION: No sign of deep vein thrombosis in both legs.
[2020-11-25] MEDS: methylPREDNISolone SOD SUCCI 125 MG/2 ML VIAL IV SCH (19:47)
--- NOTE | 2020-11-25 21:59 | P.HPIM ---
History of Present Illness H&P Date: 11/25/20 Chief Complaint: SOB Mr. Hoyos is a 65-year-old male with a past medical history of COVID-19 pneumonia diagnosed on 11/16/2020 coming into the hospital with a chief complaint of difficulty in breathing. Patient was recently discharged from the hospital 3 days after being treated for COVID-19 pneumonia. He is not vaccinated and he does not have significant past medical history. During that hospital admission patient received remdesivir and Decadron he was discharged home on steroids for 4 more days. Patient states that since being discharged he felt okay for a day or so but later on started to have worsening shortness of breath. Patient denied having any fever chills or rigors. He denied having any chest pain or palpitations. He denied having any swelling of his lower extremities. He complained of exertional dyspnea. In the ER at the time of admission patient's vital signs temperature of 98.2, heart rates 100, blood pressure 122/66, saturating at 88% on 6 L of nasal cannula. He had a chest x-ray showing bilateral pneumonia EKG showing normal sinus rhythm with heart rate around 96 bpm. Patient also had CT angio of the chest showing small peripheral bilateral pulmonary emboli in the lower lobes with no RV strain. And bilateral multifocal groundglass opacities that correlate to his Covid pneumonia. On reviewing his labs white count of 12.2, hemoglobin 10.7, platelets 275. Sodium 136, potassium 4.2, chloride 104, bicarb 25, BUN 33, creatinine 0.91. Lactic acid two-point 1 repeat is 1.6 LDH of 1359, CRP of 18.2, albumin of 2.8. D-dimer more than 34. Patient was started on heparin drip and admitted for further management. Review of Systems REVIEW OF SYSTEMS: CONSTITUTIONAL: faigue and generalized weakness HEENT: No recent visual problems or hearing problems. Denied any sore throat. CARDIOVASCULAR: No chest pain, orthopnea, PND, no palpitations, no syncope. PULMONARY: as per HPI . GASTROINTESTINAL: No Abdominal pain nausea vomiting or diarrhea. NEUROLOGICAL: No headaches, no weakness, no numbness. HEMATOLOGICAL: Denies any bleeding or petechiae. GENITOURINARY: Denies any burning micturition, frequency, or urgency. MUSCULOSKELETAL/RHEUMATOLOGICAL: Denies any joint pain, swelling, or any muscle pain. ENDOCRINE: Denies any polyuria or polydipsia. The rest of the 14-point review of systems is negative. Past Medical History Past Medical History: No Reported History Additional Past Medical History / Comment(s): Covid 19 pneumonia diagnosed on 11/16/2020, symptoms started on 11/09 2020 History of Any Multi-Drug Resistant Organisms: None Reported Past Surgical History: No Surgical Hx Reported Past Psychological History: No Psychological Hx Reported Smoking Status: Former smoker Past Alcohol Use History: None Reported Past Drug Use History: None Reported Medications and Allergies Home Medications Medication Instructions Recorded Confirmed Type Ascorbic Acid [Vitamin C] 500 mg PO DAILY 11/16/20 11/25/20 History Cholecalciferol [Vitamin D3 (25 25 mcg PO DAILY 11/16/20 11/25/20 History Mcg = 1000 Iu)] Acetaminophen Tab [Tylenol] 650 mg PO Q6HR PRN #30 tab 11/19/20 11/25/20 Rx Albuterol Inhaler [Ventolin Hfa 2 puff INHALATION RT-QID 30 Days 11/19/20 11/25/20 Rx Inhaler] #1 gm Pantoprazole [Protonix] 40 mg PO AC-BID 30 Days #60 tab 11/19/20 11/25/20 Rx Zinc Sulfate [Orazinc] 220 mg PO DAILY #30 cap 11/19/20 11/25/20 Rx Allergies Allergy/AdvReac Type Severity Reaction Status Date / Time No Known Allergies Allergy Verified 11/25/20 15:20 Physical Exam Vitals: Vital Signs Temp Pulse Resp BP Pulse Ox 11/25/20 14:22 98.2 F 100 20 122/66 88 L Intake and Output 11/25/20 11/25/20 11/25/20 06:59 14:59 22:59 Other: Weight 72.575 kg PHYSICAL EXAMINATION: GENERAL: He is ill appearing on BiPAP HEENT: Pupils are round and equally reacting to light. EOMI. No scleral icterus. No conjunctival pallor. Normocephalic, atraumatic. No pharyngeal erythema. No thyromegaly. CARDIOVASCULAR: S1 and S2 present. No murmurs, rubs, or gallops. PULMONARY: Coarse breath sounds bilaterally with few basilar crackles ABDOMEN: Soft, nontender, nondistended, normoactive bowel sounds. No palpable organomegaly. MUSCULOSKELETAL: No joint swelling or deformity. EXTREMITIES: No cyanosis, clubbing, or pedal edema. NEUROLOGICAL: AAAO X 3, Gross neurological examination did not reveal any focal deficits. SKIN: No rashes Results CBC & Chem 7: 11/25/20 14:43 11/25/20 14:43 Labs: Abnormal Lab Results - Last 24 Hours (Table) 11/25/20 11/25/20 11/25/20 Range/Units 14:43 14:43 14:43 WBC 12.2 H (3.8-10.6) k/uL RBC 3.49 L (4.30-5.90) m/uL Hgb 10.7 L (13.0-17.5) gm/dL Hct 30.4 L (39.0-53.0) % Neutrophils # 10.4 H (1.3-7.7) k/uL APTT 21.3 L (22.0-30.0) sec D-Dimer >34.10 H (<0.60) mg/L FEU Sodium 136 L (137-145) mmol/L BUN 33 H (9-20) mg/dL Glucose 106 H (74-99) mg/dL Plasma Lactic Acid Manuel (0.7-2.0) mmol/L Calcium 8.1 L (8.4-10.2) mg/dL Magnesium 2.4 H (1.6-2.3) mg/dL Lactate Dehydrogenase 1359 H (313-618) U/L C-Reactive Protein 18.2 H (<1.0) mg/dL Total Protein 5.8 L (6.3-8.2) g/dL Albumin 2.8 L (3.5-5.0) g/dL 11/25/20 Range/Units 14:43 WBC (3.8-10.6) k/uL RBC (4.30-5.90) m/uL Hgb (13.0-17.5) gm/dL Hct (39.0-53.0) % Neutrophils # (1.3-7.7) k/uL APTT (22.0-30.0) sec D-Dimer (<0.60) mg/L FEU Sodium (137-145) mmol/L BUN (9-20) mg/dL Glucose (74-99) mg/dL Plasma Lactic Acid Manuel 2.4 H* (0.7-2.0) mmol/L Calcium (8.4-10.2) mg/dL Magnesium (1.6-2.3) mg/dL Lactate Dehydrogenase (313-618) U/L C-Reactive Protein (<1.0) mg/dL Total Protein (6.3-8.2) g/dL Albumin (3.5-5.0) g/dL Assessment and Plan Assessment: ASSESSMENT Acute hypoxic respiratory failure secondary to COVID-19 pneumonia Acute COVID-19 pneumonia Bilateral small pulmonary emboli in lower lobes Elevated inflammatory markers PLAN: Continue with BiPAP for respiratory failure. Patient is readmitted for CO VID-19 pneumonia after being discharged from the hospital 3 days back for the same. He CT angio of the chest showing bilateral pulmonary embolism, patient is started on IV heparin drip. He will be continued on multivitamins Solu-Medrol along with breathing treatments. Overall prognosis is guarded. Further recommendations depending on the progress of the patient.
[2020-11-26] MEDS: methylPREDNISolone SOD SUCCI 125 MG/2 ML VIAL IV SCH ×4 (00:37→16:56)
[2020-11-26 04:14] LABS: Basophils % (A) 0 %; Eosinophils % (A) 0 %; HCT 29.3 % (39.0-53.0); HGB 9.5 gm/dL (13.0-17.5); Lymphocytes # (A) 0.4 k/uL (1.0-4.8); Lymphocytes % (A) 4 %; MCH 29.3 pg (25.0-35.0); MCHC 32.3 g/dL (31.0-37.0); MCV 90.7 fL (80.0-100.0); Mean Platelet Volume 7.7; Monocytes # (A) 0.2 k/uL (0-1.0); Monocytes % (A) 2 %; Neutrophils % (A) 94 %; Platelet Count 247 k/uL (150-450); RBC 3.23 m/uL (4.30-5.90); RDW 13.4 % (11.5-15.5); WBC 10.7 k/uL (3.8-10.6)
[2020-11-26 06:07] LABS: African American GFR (CKD) >90 (>60 ml/min/1.73 sqM); Anion Gap 7 mmol/L; Blood Urea Nitrogen 25 mg/dL (9-20); Calcium 8.3 mg/dL (8.4-10.2); Carbon Dioxide 24 mmol/L (22-30); Chloride 107 mmol/L (98-107); Glucose 127 mg/dL (74-99); Non-African American GFR(CKD) >90 (>60 ml/min/1.73 sqM); Potassium 4.8 mmol/L (3.5-5.1); Sodium 138 mmol/L (137-145)
[2020-11-26] MEDS: ZINC SULFATE 220 MG CAP PO SCH (09:00)
[2020-11-26] MEDS: CHOLECALCIFEROL 25 MCG (1000 IU) TABLET PO SCH (09:00)
[2020-11-26] MEDS: PANTOPRAZOLE 40 MG TABLET PO SCH ×2 (09:00→16:56)
[2020-11-26] MEDS: ASCORBIC ACID 500 MG TAB PO SCH (09:00)
--- NOTE | 2020-11-26 10:30 | ECHOF ---
Referral Reason:PE, CoVID MEASUREMENTS -------- HEIGHT: 167.6 cm WEIGHT: 72.6 kg BP: 100/67 RVIDd: 3.0 cm (< 3.3) IVSd: 1.3 cm (0.6 - 1.1) LVIDd: 4.7 cm (3.9 - 5.3) LVPWd: 1.3 cm (0.6 - 1.1) IVSs: 1.8 cm LVIDs: 3.2 cm LVPWs: 1.7 cm LA Diam: 3.6 cm (2.7 - 3.8) LAESV Index (A-L): 17.19 ml/m Ao Diam: 3.4 cm (2.0 - 3.7) AV Cusp: 2.1 cm (1.5 - 2.6) MV EXCURSION: 17.007 mm (> 18.000) MV EF SLOPE: 122 mm/s (70 - 150) EPSS: 0.9 cm MV E Devon: 0.95 m/s MV DecT: 273 ms MV A Devon: 1.06 m/s MV E/A Ratio: 0.90 RAP: 5.00 mmHg RVSP: 35.40 mmHg FINDINGS -------- Sinus rhythm. This was a technically good study. The left ventricular size is normal. There is mild concentric left ventricular hypertrophy. Overa ll left ventricular systolic function is normal with, an EF between 60 - 65 %. The right ventricle is mildly enlarged. Normal LA size by volume 22+/-6 ml/m2. The right atrium is normal in size. Interatrial and interventricular septum intact. The aortic valve is trileaflet, and appears structurally normal. No aortic stenosis or regurgitation. The mitral valve is normal. Mild tricuspid regurgitation present. There is mild pulmonary hypertension. The right ventricular systolic pressure, as measured by Doppler, is 35.40mmHg. Trace/mild (physiologic) pulmonic regurgitation. The aortic root size is normal. Normal inferior vena cava with normal inspiratory collapse consistent with estimated right atrial pre ssure of 5 mmHg. There is no pericardial effusion. CONCLUSIONS -------- 1. The left ventricular size is normal. 2. There is mild concentric left ventricular hypertrophy. 3. Overall left ventricular systolic function is normal with, an EF between 60 - 65 %. 4. The right ventricle is mildly enlarged. 5. The aortic valve is trileaflet, and appears structurally normal. No aortic stenosis or regurgitati on. 6. Mild tricuspid regurgitation present. 7. There is mild pulmonary hypertension. 8. The right ventricular systolic pressure, as measured by Doppler, is 35.40mmHg. 9. Trace/mild (physiologic) pulmonic regurgitation. 10. There is no pericardial effusion. G[employer] METER REPAIRER: Kenya Valero RDCS
[2020-11-26] MEDS: HEPARIN SOD,PORK IN 0.45% NACL 25,000 UNIT in 0.45% NACL 1 250ML.BAG IV SCH (12:47)
--- NOTE | 2020-11-26 13:58 | P.PN ---
Subjective Mr. Hoyos is a 65-year-old male with a past medical history of COVID-19 pneumonia diagnosed on 11/16/2020 coming into the hospital with a chief complaint of difficulty in breathing. Patient was recently discharged from the hospital 3 days after being treated for COVID-19 pneumonia. He is not vaccinated and he does not have significant past medical history. During that hospital admission patient received remdesivir and Decadron he was discharged home on steroids for 4 more days. Patient states that since being discharged he felt okay for a day or so but later on started to have worsening shortness of breath. Patient denied having any fever chills or rigors. He denied having any chest pain or palpitations. He denied having any swelling of his lower extremities. He complained of exertional dyspnea. In the ER at the time of admission patient's vital signs temperature of 98.2, heart rates 100, blood pressure 122/66, saturating at 88% on 6 L of nasal cannula. He had a chest x-ray showing bilateral pneumonia EKG showing normal sinus rhythm with heart rate around 96 bpm. Patient also had CT angio of the chest showing small peripheral bilateral pulmonary emboli in the lower lobes with no RV strain. And bilateral multifocal groundglass opacities that correlate to his Covid pneumonia. On reviewing his labs white count of 12.2, hemoglobin 10.7, platelets 275. Sodium 136, potassium 4.2, chloride 104, bicarb 25, BUN 33, creatinine 0.91. Lactic acid two-point 1 repeat is 1.6 LDH of 1359, CRP of 18.2, albumin of 2.8. D-dimer more than 34. Patient was started on heparin drip and admitted for further management. 11/26/2020 Patient this morning was sitting in bed comfortable, he was on BiPAP machine stating that his breathing is slightly better compared to yesterday. He was saturating 88% on 6 L of oxygen via nasal cannula vitals are stable. WBC is down 10.7 K. BMP is unremarkable Echocardiogram showing ejection fraction of 60-65% He remains on IV heparin for bilateral PE. On multiple vitamins C, D and zinc oxide for his Covid infection Objective - Vital Signs Vital signs: Vital Signs Temp 98.5 F 11/25/20 20:00 Pulse 89 11/26/20 08:21 Resp 18 11/26/20 08:21 BP 102/69 11/26/20 08:21 Pulse Ox 88 L 11/26/20 08:21 Intake & Output 11/25/20 11/26/20 11/26/20 18:59 06:59 18:59 Intake Total 90.359 Balance 90.359 Weight 72.575 kg Intake: Intake, IV Titration 90.359 Amount Heparin Sod,Pork in 0.45% 90.359 NaCl 25,000 unit In 0.45 % NaCl 1 250ml.bag @ 18 UNITS/KG/HR 13.064 mls/hr IV .[id number] [facility] Rx#: [id number] - Exam GENERAL: The patient is alert and oriented x3, not in any acute distress. Well d eveloped, well nourished. HEENT: Pupils are round and equally reacting to light. EOMI. No scleral icterus. No conjunctival pallor. Normocephalic, atraumatic. No pharyngeal erythema. No thyromegaly. CARDIOVASCULAR: S1 and S2 present. No murmurs, rubs, or gallops. PULMONARY: Chest is clear to auscultation, no wheezing or crackles. ABDOMEN: Soft, nontender, nondistended, normoactive bowel sounds. No palpable organomegaly. MUSCULOSKELETAL: No joint swelling or deformity. EXTREMITIES: No cyanosis, clubbing, or pedal edema. NEUROLOGICAL: Gross neurological examination did not reveal any focal deficits. SKIN: No rashes. No petechiae - Labs CBC & Chem 7: 11/26/20 03:57 11/26/20 03:57 Labs: Abnormal Lab Results - Last 24 Hours (Table) 11/25/20 11/25/20 11/25/20 Range/Units 14:43 14:43 14:43 WBC 12.2 H (3.8-10.6) k/uL RBC 3.49 L (4.30-5.90) m/uL Hgb 10.7 L (13.0-17.5) gm/dL Hct 30.4 L (39.0-53.0) % Neutrophils # 10.4 H (1.3-7.7) k/uL Lymphocytes # (1.0-4.8) k/uL APTT 21.3 L (22.0-30.0) sec D-Dimer >34.10 H (<0.60) mg/L FEU Sodium 136 L (137-145) mmol/L BUN 33 H (9-20) mg/dL Glucose 106 H (74-99) mg/dL Plasma Lactic Acid Manuel (0.7-2.0) mmol/L Calcium 8.1 L (8.4-10.2) mg/dL Magnesium 2.4 H (1.6-2.3) mg/dL Ferritin 1172.0 H (22.0-322.0) ng/mL Lactate Dehydrogenase 1359 H (313-618) U/L C-Reactive Protein 18.2 H (<1.0) mg/dL Total Protein 5.8 L (6.3-8.2) g/dL Albumin 2.8 L (3.5-5.0) g/dL Procalcitonin (0.02-0.09) ng/mL 11/25/20 11/25/20 11/25/20 Range/Units 14:43 14:43 23:32 WBC (3.8-10.6) k/uL RBC (4.30-5.90) m/uL Hgb (13.0-17.5) gm/dL Hct (39.0-53.0) % Neutrophils # (1.3-7.7) k/uL Lymphocytes # (1.0-4.8) k/uL APTT 100.7 H* (22.0-30.0) sec D-Dimer (<0.60) mg/L FEU Sodium (137-145) mmol/L BUN (9-20) mg/dL Glucose (74-99) mg/dL Plasma Lactic Acid Manuel 2.4 H* (0.7-2.0) mmol/L Calcium (8.4-10.2) mg/dL Magnesium (1.6-2.3) mg/dL Ferritin (22.0-322.0) ng/mL Lactate Dehydrogenase (313-618) U/L C-Reactive Protein (<1.0) mg/dL Total Protein (6.3-8.2) g/dL Albumin (3.5-5.0) g/dL Procalcitonin 0.22 H (0.02-0.09) ng/mL 11/26/20 11/26/20 11/26/20 Range/Units 03:57 03:57 08:03 WBC 10.7 H (3.8-10.6) k/uL RBC 3.23 L (4.30-5.90) m/uL Hgb 9.5 L (13.0-17.5) gm/dL Hct 29.3 L (39.0-53.0) % Neutrophils # 10.0 H (1.3-7.7) k/uL Lymphocytes # 0.4 L (1.0-4.8) k/uL APTT 56.6 H (22.0-30.0) sec D-Dimer (<0.60) mg/L FEU Sodium (137-145) mmol/L BUN 25 H (9-20) mg/dL Glucose 127 H (74-99) mg/dL Plasma Lactic Acid Manuel (0.7-2.0) mmol/L Calcium 8.3 L (8.4-10.2) mg/dL Magnesium (1.6-2.3) mg/dL Ferritin (22.0-322.0) ng/mL Lactate Dehydrogenase (313-618) U/L C-Reactive Protein (<1.0) mg/dL Total Protein (6.3-8.2) g/dL Albumin (3.5-5.0) g/dL Procalcitonin (0.02-0.09) ng/mL Assessment and Plan Assessment: Acute COVID-19 pneumonia Acute hypoxic respiratory failure secondary to COVID-19 pneumonia Bilateral small pulmonary emboli in lower lobes Elevated inflammatory markers Plan: This is a pleasant 65 years old male who presents with bilateral PE on to Covid infection Continue with heparin drip and switched to oral anticoagulation when stable Continue with Solu-Medrol 60 mg and multiple vitamins, vitamin C, D and zinc oxide Labs and medication were reviewed.. Continue same treatment. Continue with symptomatic treatment. Resume home medication. Monitor lytes and vitals. DVT and GI prophylaxis. Further recommendations depends on the clinical course of the patient DVT prophylaxis: heparin GI Prophylaxis: Ppi Prognosis is guarded
[2020-11-26] MEDS: SODIUM CHLORIDE 0.9% 1,000 ML IV SCH (14:33)
--- NOTE | 2020-11-26 14:46 | P.PN ---
Subjective Progress Note Date: 11/26/20 This is a 65-year-old male patient, who is coming in for worsening shortness of breath and worsening hypoxemia after leaving the hospital around 3 days ago where he received treatment for community related pneumonia. Our practice and services were involved in his care and our nurse practitioners remembered this patient's case. The patient isn't vaccinated 65-year-old male with no significant past medical history, hospitalized approximately a week ago and during the course of his treatment, the patient was given steroids and Remdesivir, and the patient was discharged home on Decadron 6 mg for additional 4 days addition to albuterol rescue inhaler and protonic 40 mg by mouth daily and zinc 220 mg by mouth daily. The patient presented back to the hospital because of worsening shortness of breath. Note that his initial diagnoses was on 11/16/2020. The patient has been symptomatic however since 11/09/2020. Despite his worsening shortness of breath, he denied having any chest pain. He came into the hospital he was found to have a pulse ox in the mid 80s on 3 L of oxygen by nasal cannula. He is afebrile hemodynamically stable. His chest x- ray showed worsening in the lower lobe by a pulmonary infiltrates. He did have some minimal interstitial lung bases especially on the left and there is obvious progression and the chest x-ray findings. White cell count is at 12.2. No lymphopenia. Coagulation profile is within normal. D-dimer is more than 34. BUN is at 33 with a creatinine of 0.9. Lactic S level is at 2.4. LDH was 1359 with a CRP of 18.2. Liver function tests are essentially within normal limits. Based on all this, a CT angiogram of the chest was done and the CTA showed diffuse vascular, infiltrates consistent with community related pneumonia. There is worsening of the multifocal groundglass pulmonary opacities bilaterally with areas of organization consolidation more so in the lower lobes. The same time, there was small peripheral pulmonary emboli bilaterally involving the lower lobes. No RV strain pattern. Doppler of the lower extremity will be ordered and this has not been completed yet. For now, the patient is on IV heparin drip. Steroids will be restarted. He did have home worsening in his oxygenation. He was placed on 6 L initially and later on he was switched to a BiPAP with a full face mask which she is able to tolerate. He is currently at a pressure of 12/5 with an FiO2 of 100%. Cardiac rhythm is sinus. No EKG abnormalities. 11/26/2020, the patient is on 6 L about 2 by nasal cannula and the patient was taken off the BiPAP. Overall, stable, pulse 91% on 6 L of oxygen by nasal cannula. Afebrile. His blood work showing a therapeutic PTT of 56.6 while the patient is on IV heparin. Hemoglobin is at 1.5 with a white cell count of 10.7. Platelet counts are stable at 247. No signs of any bleeding. Electrodes are normal. Renal function is stable with a creatinine of 0.8. His inflammatory markers from yesterday were quite elevated and this was discussed earlier in my notes. Meanwhile, the patient is on treatment for COVID-19 related pneumonia which has progressed and poor embolism. He remains on IV heparin. He remains on IV Solu-Medrol. He is also back on his abdomen since vitamin C and vitamin D and zinc sulfate. Objective - Vital Signs Vital signs: Vital Signs Temp 97.5 F L 11/26/20 14:19 Pulse 93 11/26/20 14:19 Resp 24 11/26/20 14:19 BP 112/68 11/26/20 14:19 Pulse Ox 91 L 11/26/20 14:19 Intake & Output 11/25/20 11/26/20 11/26/20 18:59 06:59 18:59 Intake Total 90.359 116.117 Balance 90.359 116.117 Weight 72.575 kg 72.575 kg Intake: Intake, IV Titration 90.359 116.117 Amount Heparin Sod,Pork in 0.45% 90.359 116.117 NaCl 25,000 unit In 0.45 % NaCl 1 250ml.bag @ 18 UNITS/KG/HR 13.064 mls/hr IV .Q19H9M [facility] Rx#: [id number] - Exam Patient is having some mild labored breathing. Patient is currently on 6 L of oxygen by nasal cannula HEAD: Normocephalic. EYES: Normal reaction of pupils, equal size. NOSE: Clear with pink turbinates. THROAT: No erythema or exudates. NECK: No masses, no JVD. CHEST: No chest wall deformity. LUNGS: Equal air entry with crackles in the posterior bases. CVS: S1 and S2 normal with no audible murmur, regular rhythm. ABDOMEN: No hepatosplenomegaly, normal bowel sounds, no guarding or rigidity. SPINE: No scoliosis or deformity SKIN: No rashes CENTRAL NERVOUS SYSTEM: No focal deficits, tone is normal in all 4 extremities. EXTREMITIES: There is no peripheral edema. No clubbing, no cyanosis. Peripheral pulses are intact. - Labs CBC & Chem 7: 11/26/20 03:57 11/26/20 03:57 Labs: Abnormal Lab Results - Last 24 Hours (Table) 11/25/20 11/25/20 11/25/20 Range/Units 14:43 14:43 14:43 WBC 12.2 H (3.8-10.6) k/uL RBC 3.49 L (4.30-5.90) m/uL Hgb 10.7 L (13.0-17.5) gm/dL Hct 30.4 L (39.0-53.0) % Neutrophils # 10.4 H (1.3-7.7) k/uL Lymphocytes # (1.0-4.8) k/uL APTT 21.3 L (22.0-30.0) sec D-Dimer >34.10 H (<0.60) mg/L FEU Sodium 136 L (137-145) mmol/L BUN 33 H (9-20) mg/dL Glucose 106 H (74-99) mg/dL Plasma Lactic Acid Manuel (0.7-2.0) mmol/L Calcium 8.1 L (8.4-10.2) mg/dL Magnesium 2.4 H (1.6-2.3) mg/dL Ferritin 1172.0 H (22.0-322.0) ng/mL Lactate Dehydrogenase 1359 H (313-618) U/L C-Reactive Protein 18.2 H (<1.0) mg/dL Total Protein 5.8 L (6.3-8.2) g/dL Albumin 2.8 L (3.5-5.0) g/dL Procalcitonin (0.02-0.09) ng/mL 11/25/20 11/25/20 11/25/20 Range/Units 14:43 14:43 23:32 WBC (3.8-10.6) k/uL RBC (4.30-5.90) m/uL Hgb (13.0-17.5) gm/dL Hct (39.0-53.0) % Neutrophils # (1.3-7.7) k/uL Lymphocytes # (1.0-4.8) k/uL APTT 100.7 H* (22.0-30.0) sec D-Dimer (<0.60) mg/L FEU Sodium (137-145) mmol/L BUN (9-20) mg/dL Glucose (74-99) mg/dL Plasma Lactic Acid Manuel 2.4 H* (0.7-2.0) mmol/L Calcium (8.4-10.2) mg/dL Magnesium (1.6-2.3) mg/dL Ferritin (22.0-322.0) ng/mL Lactate Dehydrogenase (313-618) U/L C-Reactive Protein (<1.0) mg/dL Total Protein (6.3-8.2) g/dL Albumin (3.5-5.0) g/dL Procalcitonin 0.22 H (0.02-0.09) ng/mL 11/26/20 11/26/20 11/26/20 Range/Units 03:57 03:57 08:03 WBC 10.7 H (3.8-10.6) k/uL RBC 3.23 L (4.30-5.90) m/uL Hgb 9.5 L (13.0-17.5) gm/dL Hct 29.3 L (39.0-53.0) % Neutrophils # 10.0 H (1.3-7.7) k/uL Lymphocytes # 0.4 L (1.0-4.8) k/uL APTT 56.6 H (22.0-30.0) sec D-Dimer (<0.60) mg/L FEU Sodium (137-145) mmol/L BUN 25 H (9-20) mg/dL Glucose 127 H (74-99) mg/dL Plasma Lactic Acid Manuel (0.7-2.0) mmol/L Calcium 8.3 L (8.4-10.2) mg/dL Magnesium (1.6-2.3) mg/dL Ferritin (22.0-322.0) ng/mL Lactate Dehydrogenase (313-618) U/L C-Reactive Protein (<1.0) mg/dL Total Protein (6.3-8.2) g/dL Albumin (3.5-5.0) g/dL Procalcitonin (0.02-0.09) ng/mL Assessment and Plan Plan: 1 acute Covid 19 related pneumonia. The patient developed symptoms on 11/09 2020, diagnosed on 11/16/2020, hospitalized and treated with a combination of Decadron and Remdesivir , to be readmitted back to the hospital because of worsening shortness of breath and hypoxemia, and a CT angiogram showing bilateral pulmonary embolism, worsening of the bilateral community related pneumonia and currently is on 6 L of oxygen by nasal cannula. The patient was taken off the BiPAP yesterday. Doppler of the lower extremity came back negative and the patient is currently on IV heparin with a therapeutic PT. 2 Covid 19 related pneumonia with interval progression of the right the pulmonary infiltrates 3 bilateral small pulmonary emboli secondary to Covid 19 infection 4 acute hypoxic respiratory failure and the patient was doing well on the BiPAP and he was taken off the BiPAP and he is currently on 6 L of oxygen by nasal cannula. 5 elevated inflammatory markers including d-dimer is and LDH 6 shortness of breath secondary to above Plan We are going to stop the IV heparin and put the patient on Eliquis 5 mg by mouth twice a day Doppler of the lower extremities came back negativ Solu-Medrol 60 mg every 6 hours Monitor inflammatory markers Monitor chest x-ray Check pro calcitonin level was low at 0.22 Use baricitinib if there is worsening in her oxygenation. Clinically the patient is doing well for now.. We'll continue to follow
[2020-11-26] MEDS: ALBUTEROL HFA INHALER INHALATION SCH ×2 (15:45→19:50)
[2020-11-26] MEDS: BARICITINIB 2 MG TABLET PO SCH (16:57)
[2020-11-26] MEDS: APIXABAN 5 MG TAB PO SCH (20:07)
[2020-11-27] MEDS: methylPREDNISolone SOD SUCCI 125 MG/2 ML VIAL IV SCH ×4 (00:24→17:05)
[2020-11-27] MEDS: PANTOPRAZOLE 40 MG TABLET PO SCH ×2 (06:36→16:15)
[2020-11-27] MEDS: ALBUTEROL HFA INHALER INHALATION SCH ×4 (07:16→21:31)
[2020-11-27] MEDS: APIXABAN 5 MG TAB PO SCH ×2 (10:05→20:48)
[2020-11-27] MEDS: ASCORBIC ACID 500 MG TAB PO SCH (10:06)
[2020-11-27] MEDS: BARICITINIB 2 MG TABLET PO SCH (10:06)
[2020-11-27] MEDS: CHOLECALCIFEROL 25 MCG (1000 IU) TABLET PO SCH (10:06)
[2020-11-27] MEDS: ZINC SULFATE 220 MG CAP PO SCH (10:19)
[2020-11-27 11:50] LABS: Glucose,Whole Blood 231 mg/dL (75-99)
--- NOTE | 2020-11-27 12:01 | P.PN ---
Subjective Progress Note Date: 11/27/20 This is a 65-year-old male patient, who is coming in for worsening shortness of breath and worsening hypoxemia after leaving the hospital around 3 days ago where he received treatment for community related pneumonia. Our practice and services were involved in his care and our nurse practitioners remembered this patient's case. The patient isn't vaccinated 65-year-old male with no significant past medical history, hospitalized approximately a week ago and during the course of his treatment, the patient was given steroids and Remdesivir, and the patient was discharged home on Decadron 6 mg for additional 4 days addition to albuterol rescue inhaler and protonic 40 mg by mouth daily and zinc 220 mg by mouth daily. The patient presented back to the hospital because of worsening shortness of breath. Note that his initial diagnoses was on 11/16/2020. The patient has been symptomatic however since 11/09/2020. Despite his worsening shortness of breath, he denied having any chest pain. He came into the hospital he was found to have a pulse ox in the mid 80s on 3 L of oxygen by nasal cannula. He is afebrile hemodynamically stable. His chest x- ray showed worsening in the lower lobe by a pulmonary infiltrates. He did have some minimal interstitial lung bases especially on the left and there is obvious progression and the chest x-ray findings. White cell count is at 12.2. No lymphopenia. Coagulation profile is within normal. D-dimer is more than 34. BUN is at 33 with a creatinine of 0.9. Lactic S level is at 2.4. LDH was 1359 with a CRP of 18.2. Liver function tests are essentially within normal limits. Based on all this, a CT angiogram of the chest was done and the CTA showed diffuse vascular, infiltrates consistent with community related pneumonia. There is worsening of the multifocal groundglass pulmonary opacities bilaterally with areas of organization consolidation more so in the lower lobes. The same time, there was small peripheral pulmonary emboli bilaterally involving the lower lobes. No RV strain pattern. Doppler of the lower extremity will be ordered and this has not been completed yet. For now, the patient is on IV heparin drip. Steroids will be restarted. He did have home worsening in his oxygenation. He was placed on 6 L initially and later on he was switched to a BiPAP with a full face mask which she is able to tolerate. He is currently at a pressure of 12/5 with an FiO2 of 100%. Cardiac rhythm is sinus. No EKG abnormalities. 11/26/2020, the patient is on 6 L about 2 by nasal cannula and the patient was taken off the BiPAP. Overall, stable, pulse 91% on 6 L of oxygen by nasal cannula. Afebrile. His blood work showing a therapeutic PTT of 56.6 while the patient is on IV heparin. Hemoglobin is at 1.5 with a white cell count of 10.7. Platelet counts are stable at 247. No signs of any bleeding. Electrodes are normal. Renal function is stable with a creatinine of 0.8. His inflammatory markers from yesterday were quite elevated and this was discussed earlier in my notes. Meanwhile, the patient is on treatment for COVID-19 related pneumonia which has progressed and poor embolism. He remains on IV heparin. He remains on IV Solu-Medrol. He is also back on his abdomen since vitamin C and vitamin D and zinc sulfate. 11/27/2020, the patient is on 5 L of oxygen nasal cannula. The patient is off the BiPAP. Doing well. He remains on a combination of IV Solu-Medrol and baricitinib was also added to his regimen. His inflammatory markers were elevated. The patient is also on anticoagulation with IV heparin initially and subsequently to Eliquis as the patient had small bilateral pulmonary emboli, subsegmental. He remains on examination of vitamin C and vitamin D and zinc. His echocardiogram was also completed yesterday and the patient had no strain pattern on his RV. The ventricular ejection fraction was essentially within normal limits and the patient had an ejection fraction of 60-65%. There was mild concentric LVH. No other significant valvular abnormalities have been noted. Pulmonary artery pressure was around 35 mmHg. In terms of his blood work, no new blood work is available from today. Blood sugars tightly elevated related to use of IV Solu-Medrol. Awaiting follow-up inflammatory markers. As stated, he was taken off the IV heparin and he was started on oral Eliquis. No bleeding complications. His current pulse ox is in the order of 91% on 5 L of oxygen by nasal cannula. Objective - Vital Signs Vital signs: Vital Signs Temp 98.1 F 11/27/20 10:18 Pulse 99 11/27/20 10:18 Resp 17 11/27/20 10:18 BP 106/58 11/27/20 10:18 Pulse Ox 91 L 11/27/20 10:18 Intake & Output 11/26/20 11/27/20 11/27/20 18:59 06:59 18:59 Intake Total 176.117 240 Balance 176.117 240 Weight 72.575 kg 65.5 kg Intake: Intake, IV Titration 176.117 Amount Heparin Sod,Pork in 0.45% 116.117 NaCl 25,000 unit In 0.45 % NaCl 1 250ml.bag @ 18 UNITS/KG/HR 13.064 mls/hr IV .Q19H9M [facility] Rx#: [id number] Sodium Chloride 0.9% 1, 60 000 ml @ 20 mls/hr IV . Q24H [facility] Rx#:[id number] Oral 240 Other: Voiding Method Toilet Toilet Toilet Urinal Urinal Urinal # Voids 0 2 1 - Exam Patient is having some mild labored breathing. Patient is currently on 6 L of oxygen by nasal cannula HEAD: Normocephalic. EYES: Normal reaction of pupils, equal size. NOSE: Clear with pink turbinates. THROAT: No erythema or exudates. NECK: No masses, no JVD. CHEST: No chest wall deformity. LUNGS: Equal air entry with crackles in the posterior bases. CVS: S1 and S2 normal with no audible murmur, regular rhythm. ABDOMEN: No hepatosplenomegaly, normal bowel sounds, no guarding or rigidity. SPINE: No scoliosis or deformity SKIN: No rashes CENTRAL NERVOUS SYSTEM: No focal deficits, tone is normal in all 4 extremities. EXTREMITIES: There is no peripheral edema. No clubbing, no cyanosis. Peripheral pulses are intact. - Labs CBC & Chem 7: 11/26/20 03:57 11/26/20 03:57 Labs: Abnormal Lab Results - Last 24 Hours (Table) 11/27/20 Range/Units 11:40 POC Glucose (mg/dL) 231 H (75-99) mg/dL Microbiology - Last 24 Hours (Table) 11/25/20 17:32 Blood Culture - Preliminary Blood No Growth after 24 hours 11/25/20 14:43 Blood Culture - Preliminary Blood No Growth after 24 hours Assessment and Plan Plan: 1 acute Covid 19 related pneumonia. The patient developed symptoms on 11/09 2020, diagnosed on 11/16/2020, hospitalized and treated with a combination of Decadron and Remdesivir , to be readmitted back to the hospital because of worsening shortness of breath and hypoxemia, and a CT angiogram showing bilater al pulmonary embolism, worsening of the bilateral community related pneumonia and currently is on 5 L L of oxygen by nasal cannula. The patient was taken off the BiPAP yesterday. Doppler of the lower extremity came back negative and the patient is currently on Eliquis. In terms of treatment, the patient remains on a combination of solu-Medrol 60 mg every 6 hours and baricitinib 2 Covid 19 related pneumonia with interval progression of the right the pulmonary infiltrates 3 bilateral small pulmonary emboli secondary to Covid 19 infection 4 acute hypoxic respiratory failure and the patient was doing well on the BiPAP and he was taken off the BiPAP and he is currently on 6 L of oxygen by nasal cannula. 5 elevated inflammatory markers including d-dimer is and LDH 6 shortness of breath secondary to above Plan Continue Eliquis 5 mg by mouth twice a day Doppler of the lower extremities came back negative and the patient was started on antibiotic ventilation with Eliquis 5 mg by mouth twice a day Solu-Medrol 60 mg every 6 hours and baricitinib Monitor inflammatory markers Monitor chest x-ray Check pro calcitonin level was low at 0.22 Currently on 5 L about 2 by nasal cannula. We'll continue to follow
--- NOTE | 2020-11-27 12:40 | P.PN ---
Subjective Mr. Hoyos is a 65-year-old male with a past medical history of COVID-19 pneumonia diagnosed on 11/16/2020 coming into the hospital with a chief complaint of difficulty in breathing. Patient was recently discharged from the hospital 3 days after being treated for COVID-19 pneumonia. He is not vaccinated and he does not have significant past medical history. During that hospital admission patient received remdesivir and Decadron he was discharged home on steroids for 4 more days. Patient states that since being discharged he felt okay for a day or so but later on started to have worsening shortness of breath. Patient denied having any fever chills or rigors. He denied having any chest pain or palpitations. He denied having any swelling of his lower extremities. He complained of exertional dyspnea. In the ER at the time of admission patient's vital signs temperature of 98.2, heart rates 100, blood pressure 122/66, saturating at 88% on 6 L of nasal cannula. He had a chest x-ray showing bilateral pneumonia EKG showing normal sinus rhythm with heart rate around [address] Patient also [address] angio of the chest showing small peripheral bilateral pulmonary emboli in the lower lobes with no RV strain. And bilateral multifocal groundglass opacities that correlate to his Covid pneumonia. On reviewing his labs white count of 12.2, hemoglobin 10.7, platelets 275. Sodium 136, potassium 4.2, chloride 104, bicarb 25, BUN 33, creatinine 0.91. Lactic acid two-point 1 repeat is 1.6 LDH of 1359, CRP of 18.2, albumin of 2.8. D-dimer more than 34. Patient was started on heparin drip and admitted for further management. 11/26/2020 Patient this morning was sitting in bed comfortable, he was on BiPAP machine stating that his breathing is slightly better compared to yesterday. He was saturating 88% on 6 L of oxygen via nasal cannula vitals are stable. WBC is down 10.7 K. BMP is unremarkable Echocardiogram showing ejection fraction of 60-65% He remains on IV heparin for bilateral PE. On multiple vitamins C, D and zinc oxide for his Covid infection 11/27/2020 Patients with bilateral Covid pneumonia with mild dyspnea. He is saturating 91% on 6 L oxygen via nasal cannula slightly better than yesterday. His Procalcitonin is a slightly elevated at 0.2 to however he does not need antibacterial antibiotics No labs from today, was placed on insulin sliding scale He continued on Solu-Medrol 60 mg and Baricitinib . His anticoagulation is wished to Eliquis 5 mg twice a day. He remains on multiple vitamins Objective - Vital Signs Vital signs: Vital Signs Temp 98.1 F 11/27/20 10:18 Pulse 99 11/27/20 10:18 Resp 17 11/27/20 10:18 BP 106/58 11/27/20 10:18 Pulse Ox 91 L 11/27/20 10:18 Intake & Output 11/26/20 11/27/20 11/27/20 18:59 06:59 18:59 Intake Total 176.117 240 Balance 176.117 240 Weight 72.575 kg 65.5 kg Intake: Intake, IV Titration 176.117 Amount Heparin Sod,Pork in 0.45% 116.117 NaCl 25,000 unit In 0.45 % NaCl 1 250ml.bag @ 18 UNITS/KG/HR 13.064 mls/hr IV .Q19H9M [facility] Rx#: [id number] Sodium Chloride 0.9% 1, 60 000 ml @ 20 mls/hr IV . Q24H [facility] Rx#:[id number] Oral 240 Other: Voiding Method Toilet Toilet Toilet Urinal Urinal Urinal # Voids 0 2 1 - Exam GENERAL: The patient is alert and oriented x3, not in any acute distress. Well developed, well nourished. HEENT: Pupils are round and equally reacting to light. EOMI. No scleral icterus. No conjunctival pallor. Normocephalic, atraumatic. No pharyngeal erythema. No thyromegaly. CARDIOVASCULAR: S1 and S2 present. No murmurs, rubs, or gallops. PULMONARY: Chest is clear to auscultation, no wheezing or crackles. ABDOMEN: Soft, nontender, nondistended, normoactive bowel sounds. No palpable organomegaly. MUSCULOSKELETAL: No joint swelling or deformity. EXTREMITIES: No cyanosis, clubbing, or pedal edema. NEUROLOGICAL: Gross neurological examination did not reveal any focal deficits. SKIN: No rashes. No petechiae - Labs CBC & Chem 7: 11/26/20 03:57 11/26/20 03:57 Labs: Abnormal Lab Results - Last 24 Hours (Table) 11/27/20 Range/Units 11:40 POC Glucose (mg/dL) 231 H (75-99) mg/dL Microbiology - Last 24 Hours (Table) 11/25/20 17:32 Blood Culture - Preliminary Blood No Growth after 24 hours 11/25/20 14:43 Blood Culture - Preliminary Blood No Growth after 24 hours Assessment and Plan Assessment: Acute COVID-19 pneumonia Acute hypoxic respiratory failure secondary to COVID-19 pneumonia Bilateral small pulmonary emboli in lower lobes Elevated inflammatory markers Plan: This is a pleasant 65 years old male who presents with bilateral PE on to Covid infection Continue with Eliquis Continue with Solu-Medrol 60 mg and multiple vitamins, vitamin C, D and zinc oxide. Also baricitinib added Labs and medication were reviewed.. Continue same treatment. Continue with s ymptomatic treatment. Resume home medication. Monitor lytes and vitals. DVT and GI prophylaxis. Further recommendations depends on the clinical course of the patient DVT prophylaxis: heparin GI Prophylaxis: Ppi Prognosis is guarded
[2020-11-27] MEDS: INSULIN ASPART (NovoLOG) 100 UNIT/ML VIAL SQ SCH ×3 (12:57→20:48)
[2020-11-27] MEDS: SODIUM CHLORIDE 0.9% 1,000 ML IV SCH (15:05)
[2020-11-27 16:20] LABS: Glucose,Whole Blood 145 mg/dL (75-99)
[2020-11-27 20:13] LABS: Glucose,Whole Blood 200 mg/dL (75-99)
[2020-11-28] MEDS: methylPREDNISolone SOD SUCCI 125 MG/2 ML VIAL IV SCH ×4 (00:12→17:45)
[2020-11-28 06:35] LABS: Glucose,Whole Blood 127 mg/dL (75-99)
[2020-11-28] MEDS: INSULIN ASPART (NovoLOG) 100 UNIT/ML VIAL SQ SCH ×4 (06:35→21:05)
[2020-11-28] MEDS: PANTOPRAZOLE 40 MG TABLET PO SCH ×2 (06:37→17:46)
[2020-11-28] MEDS: ALBUTEROL HFA INHALER INHALATION SCH ×4 (07:56→20:18)
--- NOTE | 2020-11-28 08:21 | XR ---
EXAMINATION TYPE: XR chest 1V portable DATE OF EXAM: 11/28/2020 COMPARISON: Chest x-ray and CT 11/25/2020 HISTORY: Covid pneumonia TECHNIQUE: Single frontal view of the chest is obtained. FINDINGS: Findings are similar to prior chest x-ray, bibasilar airspace disease is noted. Cardiac me diastinal silhouette is stable. There are overlying artifacts. No evident pneumothorax or pleural eff usion. There is underlying emphysema. IMPRESSION: Findings similar to prior exams. Correlate for Covid pneumonia. Patient with known pulmo nary emboli.
[2020-11-28 08:24] LABS: Basophils % (A) 0 %; Eosinophils % (A) 0 %; HCT 28.1 % (39.0-53.0); HGB 9.4 gm/dL (13.0-17.5); Lymphocytes # (A) 0.3 k/uL (1.0-4.8); Lymphocytes % (A) 3 %; MCH 29.8 pg (25.0-35.0); MCHC 33.3 g/dL (31.0-37.0); MCV 89.5 fL (80.0-100.0); Mean Platelet Volume 7.4; Monocytes # (A) 0.4 k/uL (0-1.0); Monocytes % (A) 3 %; Neutrophils # (A) 12.3 k/uL (1.3-7.7); Neutrophils % (A) 94 %; Platelet Count 318 k/uL (150-450); Poikilocytosis Slight; RBC 3.15 m/uL (4.30-5.90); RDW 13.6 % (11.5-15.5); WBC 13.2 k/uL (3.8-10.6)
[2020-11-28] MEDS: CHOLECALCIFEROL 25 MCG (1000 IU) TABLET PO SCH (08:50)
[2020-11-28] MEDS: ASCORBIC ACID 500 MG TAB PO SCH (08:50)
[2020-11-28] MEDS: BARICITINIB 2 MG TABLET PO SCH (08:50)
[2020-11-28] MEDS: APIXABAN 5 MG TAB PO SCH ×2 (08:50→21:05)
[2020-11-28] MEDS: ZINC SULFATE 220 MG CAP PO SCH (08:50)
[2020-11-28 08:54] LABS: ALT 29 U/L (4-49); AST 40 U/L (17-59); African American GFR (CKD) >90 (>60 ml/min/1.73 sqM); Albumin 2.7 g/dL (3.5-5.0); Alkaline Phosphatase 64 U/L (38-126); Anion Gap 7 mmol/L; Blood Urea Nitrogen 28 mg/dL (9-20); C Reactive Protein 4.1 mg/dL (<1.0); Calcium 8.3 mg/dL (8.4-10.2); Carbon Dioxide 23 mmol/L (22-30); Chloride 108 mmol/L (98-107); Glucose 123 mg/dL (74-99); LDH 952 U/L (313-618); Non-African American GFR(CKD) 85 (>60 ml/min/1.73 sqM); Potassium 3.9 mmol/L (3.5-5.1); Sodium 138 mmol/L (137-145); Total Bilirubin 0.7 mg/dL (0.2-1.3); Total Protein 5.5 g/dL (6.3-8.2)
[2020-11-28 12:03] LABS: Glucose,Whole Blood 134 mg/dL (75-99)
--- NOTE | 2020-11-28 12:31 | P.PN ---
Subjective Progress Note Date: 11/28/20 This is a 65-year-old male patient, who is coming in for worsening shortness of breath and worsening hypoxemia after leaving the hospital around 3 days ago where he received treatment for community related pneumonia. Our practice and services were involved in his care and our nurse practitioners remembered this patient's case. The patient isn't vaccinated 65-year-old male with no significant past medical history, hospitalized approximately a week ago and during the course of his treatment, the patient was given steroids and Remdesivir, and the patient was discharged home on Decadron 6 mg for additional 4 days addition to albuterol rescue inhaler and protonic 40 mg by mouth daily and zinc 220 mg by mouth daily. The patient presented back to the hospital because of worsening shortness of breath. Note that his initial diagnoses was on 11/16/2020. The patient has been symptomatic however since 11/09/2020. Despite his worsening shortness of breath, he denied having any chest pain. He came into the hospital he was found to have a pulse ox in the mid 80s on 3 L of oxygen by nasal cannula. He is afebrile hemodynamically stable. His chest x- ray showed worsening in the lower lobe by a pulmonary infiltrates. He did have some minimal interstitial lung bases especially on the left and there is obvious progression and the chest x-ray findings. White cell count is at 12.2. No lymphopenia. Coagulation profile is within normal. D-dimer is more than 34. BUN is at 33 with a creatinine of 0.9. Lactic S level is at 2.4. LDH was 1359 with a CRP of 18.2. Liver function tests are essentially within normal limits. Based on all this, a CT angiogram of the chest was done and the CTA showed diffuse vascular, infiltrates consistent with community related pneumonia. There is worsening of the multifocal groundglass pulmonary opacities bilaterally with areas of organization consolidation more so in the lower lobes. The same time, there was small peripheral pulmonary emboli bilaterally involving the lower lobes. No RV strain pattern. Doppler of the lower extremity will be ordered and this has not been completed yet. For now, the patient is on IV heparin drip. Steroids will be restarted. He did have home worsening in his oxygenation. He was placed on 6 L initially and later on he was switched to a BiPAP with a full face mask which she is able to tolerate. He is currently at a pressure of 12/5 with an FiO2 of 100%. Cardiac rhythm is sinus. No EKG abnormalities. 11/26/2020, the patient is on 6 L about 2 by nasal cannula and the patient was taken off the BiPAP. Overall, stable, pulse 91% on 6 L of oxygen by nasal cannula. Afebrile. His blood work showing a therapeutic PTT of 56.6 while the patient is on IV heparin. Hemoglobin is at 1.5 with a white cell count of 10.7. Platelet counts are stable at 247. No signs of any bleeding. Electrodes are normal. Renal function is stable with a creatinine of 0.8. His inflammatory markers from yesterday were quite elevated and this was discussed earlier in my notes. Meanwhile, the patient is on treatment for COVID-19 related pneumonia which has progressed and poor embolism. He remains on IV heparin. He remains on IV Solu-Medrol. He is also back on his abdomen since vitamin C and vitamin D and zinc sulfate. 11/27/2020, the patient is on 5 L of oxygen nasal cannula. The patient is off the BiPAP. Doing well. He remains on a combination of IV Solu-Medrol and baricitinib was also added to his regimen. His inflammatory markers were elevated. The patient is also on anticoagulation with IV heparin initially and subsequently to Eliquis as the patient had small bilateral pulmonary emboli, subsegmental. He remains on examination of vitamin C and vitamin D and zinc. His echocardiogram was also completed yesterday and the patient had no strain pattern on his RV. The ventricular ejection fraction was essentially within normal limits and the patient had an ejection fraction of 60-65%. There was mild concentric LVH. No other significant valvular abnormalities have been noted. Pulmonary artery pressure was around 35 mmHg. In terms of his blood work, no new blood work is available from today. Blood sugars tightly elevated related to use of IV Solu-Medrol. Awaiting follow-up inflammatory markers. As stated, he was taken off the IV heparin and he was started on oral Eliquis. No bleeding complications. His current pulse ox is in the order of 91% on 5 L of oxygen by nasal cannula. 11/28/2020, the patient is feeling very well. He is back to his baseline prior to him being admitted to the hospital. He is currently weaned down to 3 L of oxygen by nasal cannula. He is taking a combination of recent Medrol and Baricitinib. He was diagnosed having small bilateral pulmonary emboli and the patient is also on Eliquis. No new complaints otherwise for now. In terms of his blood work, the blood work from yesterday was reviewed. No other changes. His white cell count is at 15.2 today with a hemoglobin of 9.4. He still has some lymphopenia with a lymphocyte count of 0.3. BUN is at 28 with a creatinine of 0.9. LDH level is lower at 952 and a CRP level is also low at 4.1. Rest of the blood work and electrolytes are all within normal limits. Blood sugar slightly elevated at 123. He has home oxygen. Objective - Vital Signs Vital signs: Vital Signs Temp 97.4 F L 11/28/20 08:00 Pulse 100 11/28/20 08:00 Resp 18 11/28/20 04:00 BP 110/63 11/28/20 08:00 Pulse Ox 92 L 11/28/20 10:00 Intake & Output 11/27/20 11/28/20 11/28/20 18:59 06:59 18:59 Intake Total 1780 20 240 Balance 1780 20 240 Weight 72 kg Intake: IV 20 Invasive Line 3 20 Oral 1780 240 Other: Voiding Method Toilet Toilet Urinal Urinal # Voids 2 2 3 - Exam Patient is having some mild labored breathing. Patient is currently on 3 L of oxygen by nasal cannula HEAD: Normocephalic. EYES: Normal reaction of pupils, equal size. NOSE: Clear with pink turbinates. THROAT: No erythema or exudates. NECK: No masses, no JVD. CHEST: No chest wall deformity. LUNGS: Equal air entry with crackles in the posterior bases. CVS: S1 and S2 normal with no audible murmur, regular rhythm. ABDOMEN: No hepatosplenomegaly, normal bowel sounds, no guarding or rigidity. SPINE: No scoliosis or deformity SKIN: No rashes CENTRAL NERVOUS SYSTEM: No focal deficits, tone is normal in all 4 extremities. EXTREMITIES: There is no peripheral edema. No clubbing, no cyanosis. Peripheral pulses are intact. - Labs CBC & Chem 7: 11/28/20 07:42 11/28/20 07:42 Labs: Abnormal Lab Results - Last 24 Hours (Table) 11/27/20 11/27/20 11/28/20 Range/Units 16:19 20:12 06:33 WBC (3.8-10.6) k/uL RBC (4.30-5.90) m/uL Hgb (13.0-17.5) gm/dL Hct (39.0-53.0) % Neutrophils # (1.3-7.7) k/uL Lymphocytes # (1.0-4.8) k/uL Chloride (98-107) mmol/L BUN (9-20) mg/dL Glucose (74-99) mg/dL POC Glucose (mg/dL) 145 H 200 H 127 H (75-99) mg/dL Calcium (8.4-10.2) mg/dL Lactate Dehydrogenase (313-618) U/L C-Reactive Protein (<1.0) mg/dL Total Protein (6.3-8.2) g/dL Albumin (3.5-5.0) g/dL 11/28/20 11/28/20 11/28/20 Range/Units 07:42 07:42 11:56 WBC 13.2 H (3.8-10.6) k/uL RBC 3.15 L (4.30-5.90) m/uL Hgb 9.4 L (13.0-17.5) gm/dL Hct 28.1 L (39.0-53.0) % Neutrophils # 12.3 H (1.3-7.7) k/uL Lymphocytes # 0.3 L (1.0-4.8) k/uL Chloride 108 H (98-107) mmol/L BUN 28 H (9-20) mg/dL Glucose 123 H (74-99) mg/dL POC Glucose (mg/dL) 134 H (75-99) mg/dL Calcium 8.3 L (8.4-10.2) mg/dL Lactate Dehydrogenase 952 H (313-618) U/L C-Reactive Protein 4.1 H (<1.0) mg/dL Total Protein 5.5 L (6.3-8.2) g/dL Albumin 2.7 L (3.5-5.0) g/dL Microbiology - Last 24 Hours (Table) 11/25/20 17:32 Blood Culture - Preliminary Blood No Growth after 48 hours 11/25/20 14:43 Blood Culture - Preliminary Blood No Growth after 48 hours Assessment and Plan Plan: 1 acute Covid 19 related pneumonia. The patient developed symptoms on 11/09 2020, diagnosed on 11/16/2020, hospitalized and treated with a combination of Decadron and Remdesivir , to be readmitted back to the hospital because of worsening shortness of breath and hypoxemia, and a CT angiogram showing bilateral pulmonary embolism, worsening of the bilateral community related pneumonia . Currently, the patient is down to 3 L of oxygen by nasal cannula. He has responded nicely to treatment. He is willing to go home. He is currently on 3 L and he is being treated with anticoagulants and he is also on IV Solu-Medrol and Baricitinib. His condition is stable. I think it's reasonable to let him go today with close supervision at home. His lungs are still crackling. He still has ongoing issues with COVID-19 related pneumonia/lung injury. 2 Covid 19 related pneumonia with interval progression of the right the pulmonary infiltrates 3 bilateral small pulmonary emboli secondary to Covid 19 infection 4 acute hypoxic respiratory failure secondary to above, 5 elevated inflammatory markers including d-dimer is and LDH 6 shortness of breath secondary to above Plan May go home on 3 L of oxygen by nasal cannula and the patient has home O2 Continue Eliquis 5 mg by mouth twice a day Stopped IV Solu-Medrol and stop the Baricitinib and put the patient on prednisone burst taper starting with 40 mg Doppler of the lower extremities came back negative Check pro calcitonin level was low at 0.22 Monitor oxygenation is home and the patient has a pulse oximeter We'll continue to follow on outpatient basis and the patient will be given up an appointment to be seen on outpatient basis within the next 7-10 days. May presented back to the emergency department if there is any worsening.
[2020-11-28] MEDS: SODIUM CHLORIDE 0.9% 1,000 ML IV SCH (17:45)
[2020-11-28 20:45] LABS: Glucose,Whole Blood 144 mg/dL (75-99)
[2020-11-29] MEDS: methylPREDNISolone SOD SUCCI 125 MG/2 ML VIAL IV SCH ×4 (00:15→17:15)
[2020-11-29 05:49] LABS: Glucose,Whole Blood 116 mg/dL (75-99)
[2020-11-29] MEDS: PANTOPRAZOLE 40 MG TABLET PO SCH ×2 (06:30→17:15)
[2020-11-29] MEDS: INSULIN ASPART (NovoLOG) 100 UNIT/ML VIAL SQ SCH ×4 (06:30→21:08)
[2020-11-29] MEDS: ALBUTEROL HFA INHALER INHALATION SCH ×4 (08:22→21:22)
[2020-11-29 08:36] LABS: Basophils % (A) 0 %; Eosinophils % (A) 0 %; HCT 30.4 % (39.0-53.0); HGB 9.6 gm/dL (13.0-17.5); Hypochromasia Slight; Lymphocytes # (A) 0.3 k/uL (1.0-4.8); Lymphocytes % (A) 3 %; MCH 29.4 pg (25.0-35.0); MCHC 31.7 g/dL (31.0-37.0); MCV 92.6 fL (80.0-100.0); Mean Platelet Volume 7.6; Monocytes # (A) 0.4 k/uL (0-1.0); Monocytes % (A) 3 %; Neutrophils % (A) 93 %; Platelet Count 295 k/uL (150-450); RBC 3.28 m/uL (4.30-5.90); RDW 13.2 % (11.5-15.5); WBC 11.8 k/uL (3.8-10.6)
[2020-11-29] MEDS: APIXABAN 5 MG TAB PO SCH ×2 (08:49→21:09)
[2020-11-29] MEDS: CHOLECALCIFEROL 25 MCG (1000 IU) TABLET PO SCH (08:49)
[2020-11-29] MEDS: BARICITINIB 2 MG TABLET PO SCH (08:49)
[2020-11-29] MEDS: ZINC SULFATE 220 MG CAP PO SCH (08:49)
[2020-11-29] MEDS: ASCORBIC ACID 500 MG TAB PO SCH (08:50)
[2020-11-29 08:51] LABS: ALT 62 U/L (4-49); AST 78 U/L (17-59); African American GFR (CKD) >90 (>60 ml/min/1.73 sqM); Albumin 2.7 g/dL (3.5-5.0); Alkaline Phosphatase 71 U/L (38-126); Anion Gap 6 mmol/L; Blood Urea Nitrogen 30 mg/dL (9-20); Calcium 8.8 mg/dL (8.4-10.2); Carbon Dioxide 26 mmol/L (22-30); Chloride 108 mmol/L (98-107); Glucose 120 mg/dL (74-99); Non-African American GFR(CKD) 83 (>60 ml/min/1.73 sqM); Potassium 4.2 mmol/L (3.5-5.1); Sodium 140 mmol/L (137-145); Total Bilirubin 0.7 mg/dL (0.2-1.3); Total Protein 5.8 g/dL (6.3-8.2)
--- NOTE | 2020-11-29 09:50 | P.PN ---
Subjective Date of service for this note is on 11/28/20 Mr. Hoyos is a 65-year-old male with a past medical history of COVID-19 pneumonia diagnosed on 11/16/2020 coming into the hospital with a chief complaint of difficulty in breathing. Patient was recently discharged from the hospital 3 days after being treated for COVID-19 pneumonia. He is not vaccinated and he does not have significant past medical history. During that hospital admission patient received remdesivir and Decadron he was discharged home on steroids for 4 more days. Patient states that since being discharged he felt okay for a day or so but later on started to have worsening shortness of breath. Patient denied having any fever chills or rigors. He denied having any chest pain or palpitations. He denied having any swelling of his lower extremities. He complained of exertional dyspnea. In the ER at the time of admission patient's vital signs temperature of 98.2, heart rates 100, blood pressure 122/66, saturating at 88% on 6 L of nasal cannula. He had a chest x-ray showing bilateral pneumonia EKG showing normal sinus rhythm with heart rate around [address] Patient also [address] angio of the chest showing small peripheral bilateral pulmonary emboli in the lower lobes w ith no RV strain. And bilateral multifocal groundglass opacities that correlate to his Covid pneumonia. On reviewing his labs white count of 12.2, hemoglobin 10.7, platelets 275. Sodium 136, potassium 4.2, chloride 104, bicarb 25, BUN 33, creatinine 0.91. Lactic acid two-point 1 repeat is 1.6 LDH of 1359, CRP of 18.2, albumin of 2.8. D-dimer more than 34. Patient was started on heparin drip and admitted for further management. 11/26/2020 Patient this morning was sitting in bed comfortable, he was on BiPAP machine stating that his breathing is slightly better compared to yesterday. He was saturating 88% on 6 L of oxygen via nasal cannula vitals are stable. WBC is down 10.7 K. BMP is unremarkable Echocardiogram showing ejection fraction of 60-65% He remains on IV heparin for bilateral PE. On multiple vitamins C, D and zinc oxide for his Covid infection 11/27/2020 Patients with bilateral Covid pneumonia with mild dyspnea. He is saturating 91% on 6 L oxygen via nasal cannula slightly better than yesterday. His Procalcitonin is a slightly elevated at 0.2 to however he does not need antibacterial antibiotics No labs from today, was placed on insulin sliding scale He continued on Solu-Medrol 60 mg and Baricitinib . His anticoagulation is wished to Eliquis 5 mg twice a day. He remains on multiple vitamins 11/28/20 Patient breathing is stable, his oxygen saturation is 3-6 L/m to keep oxygen saturation low 90s and high 80s. we discussed the case with pulmonary team and they prefer to keep the patient bowel as his stable for discharge Chest x-ray showing persistent bilateral pulmonary infiltrate. WBC is down 13.2 K. Echocardiogram showing ejection fraction of 60-65% He remains on Eliquis for bilateral PE. On multiple vitamins C, D and zinc oxide for his Covid infection, and Baricitinib Objective - Vital Signs Vital signs: Vital Signs Temp 97.4 F L 11/29/20 08:47 Pulse 94 11/29/20 08:47 Resp 18 11/29/20 08:47 BP 119/67 11/29/20 08:47 Pulse Ox 90 L 11/29/20 08:54 Intake & Output 11/28/20 11/29/20 11/29/20 18:59 06:59 18:59 Intake Total 720 10 Balance 720 10 Weight 72 kg Intake: IV 10 Invasive Line 3 10 Oral 720 Other: Voiding Method Toilet # Voids 3 3 # Bowel Movements 1 - Exam GENERAL: The patient is alert and oriented x3, not in any acute distress. Well developed, well nourished. HEENT: Pupils are round and equally reacting to light. EOMI. No scleral icterus. No conjunctival pallor. Normocephalic, atraumatic. No pharyngeal erythema. No thyromegaly. CARDIOVASCULAR: S1 and S2 present. No murmurs, rubs, or gallops. PULMONARY: Chest is clear to auscultation, no wheezing or crackles. ABDOMEN: Soft, nontender, nondistended, normoactive bowel sounds. No palpable organomegaly. MUSCULOSKELETAL: No joint swelling or deformity. EXTREMITIES: No cyanosis, clubbing, or pedal edema. NEUROLOGICAL: Gross neurological examination did not reveal any focal deficits. SKIN: No rashes. No petechiae - Labs CBC & Chem 7: 11/29/20 08:01 11/29/20 08:01 Labs: Abnormal Lab Results - Last 24 Hours (Table) 11/28/20 11/28/20 11/29/20 Range/Units 11:56 20:42 05:47 WBC (3.8-10.6) k/uL RBC (4.30-5.90) m/uL Hgb (13.0-17.5) gm/dL Hct (39.0-53.0) % Neutrophils # (1.3-7.7) k/uL Lymphocytes # (1.0-4.8) k/uL Chloride (98-107) mmol/L BUN (9-20) mg/dL Glucose (74-99) mg/dL POC Glucose (mg/dL) 134 H 144 H 116 H (75-99) mg/dL AST (17-59) U/L ALT (4-49) U/L Total Protein (6.3-8.2) g/dL Albumin (3.5-5.0) g/dL 11/29/20 11/29/20 Range/Units 08:01 08:01 WBC 11.8 H (3.8-10.6) k/uL RBC 3.28 L (4.30-5.90) m/uL Hgb 9.6 L (13.0-17.5) gm/dL Hct 30.4 L (39.0-53.0) % Neutrophils # 11.0 H (1.3-7.7) k/uL Lymphocytes # 0.3 L (1.0-4.8) k/uL Chloride 108 H (98-107) mmol/L BUN 30 H (9-20) mg/dL Glucose 120 H (74-99) mg/dL POC Glucose (mg/dL) (75-99) mg/dL AST 78 H (17-59) U/L ALT 62 H (4-49) U/L Total Protein 5.8 L (6.3-8.2) g/dL Albumin 2.7 L (3.5-5.0) g/dL Microbiology - Last 24 Hours (Table) 11/25/20 17:32 Blood Culture - Preliminary Blood No Growth after 72 hours 11/25/20 14:43 Blood Culture - Preliminary Blood No Growth after 72 hours Assessment and Plan Assessment: Acute COVID-19 pneumonia Acute hypoxic respiratory failure secondary to COVID-19 pneumonia Bilateral small pulmonary emboli in lower lobes Elevated inflammatory markers Plan: This is a pleasant 65 years old male who presents with bilateral PE on to Covid infection Continue with Eliquis Continue with Solu-Medrol 60 mg and multiple vitamins, vitamin C, D and zinc oxide. Also baricitinib added Labs and medication were reviewed.. Continue same treatment. Continue with symptomatic treatment. Resume home medication. Monitor lytes and vitals. DVT and GI prophylaxis. Further recommendations depends on the clinical course of the patient DVT prophylaxis: heparin GI Prophylaxis: Ppi Prognosis is guarded
[2020-11-29 11:51] LABS: Glucose,Whole Blood 119 mg/dL (75-99)
--- NOTE | 2020-11-29 14:03 | P.PN ---
Subjective Progress Note Date: 11/29/20 This is a 65-year-old male patient, who is coming in for worsening shortness of breath and worsening hypoxemia after leaving the hospital around 3 days ago where he received treatment for community related pneumonia. Our practice and services were involved in his care and our nurse practitioners remembered this patient's case. The patient isn't vaccinated 65-year-old male with no significant past medical history, hospitalized approximately a week ago and during the course of his treatment, the patient was given steroids and Remdesivir, and the patient was discharged home on Decadron 6 mg for additional 4 days addition to albuterol rescue inhaler and protonic 40 mg by mouth daily and zinc 220 mg by mouth daily. The patient presented back to the hospital because of worsening shortness of breath. Note that his initial diagnoses was on 11/16/2020. The patient has been symptomatic however since 11/09/2020. Despite his worsening shortness of breath, he denied having any chest pain. He came into the hospital he was found to have a pulse ox in the mid 80s on 3 L of oxygen by nasal cannula. He is afebrile hemodynamically stable. His chest x- ray showed worsening in the lower lobe by a pulmonary infiltrates. He did have some minimal interstitial lung bases especially on the left and there is obvious progression and the chest x-ray findings. White cell count is at 12.2. No lymphopenia. Coagulation profile is within normal. D-dimer is more than 34. BUN is at 33 with a creatinine of 0.9. Lactic S level is at 2.4. LDH was 1359 with a CRP of 18.2. Liver function tests are essentially within normal limits. Based on all this, a CT angiogram of the chest was done and the CTA showed diffuse vascular, infiltrates consistent with community related pneumonia. There is worsening of the multifocal groundglass pulmonary opacities bilaterally with areas of organization consolidation more so in the lower lobes. The same time, there was small peripheral pulmonary emboli bilaterally involving the lower lobes. No RV strain pattern. Doppler of the lower extremity will be ordered and this has not been completed yet. For now, the patient is on IV heparin drip. Steroids will be restarted. He did have home worsening in his oxygenation. He was placed on 6 L initially and later on he was switched to a BiPAP with a full face mask which she is able to tolerate. He is currently at a pressure of 12/5 with an FiO2 of 100%. Cardiac rhythm is sinus. No EKG abnormalities. 11/26/2020, the patient is on 6 L about 2 by nasal cannula and the patient was taken off the BiPAP. Overall, stable, pulse 91% on 6 L of oxygen by nasal cannula. Afebrile. His blood work showing a therapeutic PTT of 56.6 while the patient is on IV heparin. Hemoglobin is at 1.5 with a white cell count of 10.7. Platelet counts are stable at 247. No signs of any bleeding. Electrodes are normal. Renal function is stable with a creatinine of 0.8. His inflammatory markers from yesterday were quite elevated and this was discussed earlier in my notes. Meanwhile, the patient is on treatment for COVID-19 related pneumonia which has progressed and poor embolism. He remains on IV heparin. He remains on IV Solu-Medrol. He is also back on his abdomen since vitamin C and vitamin D and zinc sulfate. 11/27/2020, the patient is on 5 L of oxygen nasal cannula. The patient is off the BiPAP. Doing well. He remains on a combination of IV Solu-Medrol and baricitinib was also added to his regimen. His inflammatory markers were elevated. The patient is also on anticoagulation with IV heparin initially and subsequently to Eliquis as the patient had small bilateral pulmonary emboli, subsegmental. He remains on examination of vitamin C and vitamin D and zinc. His echocardiogram was also completed yesterday and the patient had no strain pattern on his RV. The ventricular ejection fraction was essentially within normal limits and the patient had an ejection fraction of 60-65%. There was mild concentric LVH. No other significant valvular abnormalities have been noted. Pulmonary artery pressure was around 35 mmHg. In terms of his blood work, no new blood work is available from today. Blood sugars tightly elevated related to use of IV Solu-Medrol. Awaiting follow-up inflammatory markers. As stated, he was taken off the IV heparin and he was started on oral Eliquis. No bleeding complications. His current pulse ox is in the order of 91% on 5 L of oxygen by nasal cannula. 11/28/2020, the patient is feeling very well. He is back to his baseline prior to him being admitted to the hospital. He is currently weaned down to 3 L of oxygen by nasal cannula. He is taking a combination of recent Medrol and Baricitinib. He was diagnosed having small bilateral pulmonary emboli and the patient is also on Eliquis. No new complaints otherwise for now. In terms of his blood work, the blood work from yesterday was reviewed. No other changes. His white cell count is at 15.2 today with a hemoglobin of 9.4. He still has some lymphopenia with a lymphocyte count of 0.3. BUN is at 28 with a creatinine of 0.9. LDH level is lower at 952 and a CRP level is also low at 4.1. Rest of the blood work and electrolytes are all within normal limits. Blood sugar slightly elevated at 123. He has home oxygen. On 11/29/2020, the patient is on 4 L of oxygen by nasal cannula. We are planning to discharge this patient home yesterday. Nevertheless, her oxygen requirements were felt to be still quite high and home O2 needed to be arranged. For now, she remains on IV Solu-Medrol, multivitamins, vitamin C and vitamin D and Baricitinib was also added to her regimen. Noted the patient has home O2 and this was given to him from his most recent hospitalization. His current bl ood work from today showing a white cell count of 11.8 with hemoglobin on 0.6. He continues to have some mild transaminitis. AST 62, ALT 71, electrolytes are essentially within normal limits. His LDH level from yesterday was declining it was down to 952. In terms of his oxygenation, the patient is ranging between 3 and 4 L.. Have some desaturation yesterday. He was started on Baricitinib and he was kept here in the hospital. He remains on long-term anticoagulation with Eliquis. He has established bilateral pulmonary embolism on CT angiogram. Objective - Vital Signs Vital signs: Vital Signs Temp 97.8 F 11/29/20 12:12 Pulse 89 11/29/20 12:12 Resp 18 11/29/20 12:12 BP 118/70 11/29/20 12:12 Pulse Ox 90 L 11/29/20 12:12 Intake & Output 11/28/20 11/29/20 11/29/20 18:59 06:59 18:59 Intake Total 720 10 240 Balance 720 10 240 Weight 72 kg Intake: IV 10 Invasive Line 3 10 Oral 720 240 Other: Voiding Method Toilet Toilet # Voids 3 3 3 # Bowel Movements 1 - Exam Patient is having some mild labored breathing. Patient is currently on 4 L of oxygen by nasal cannula HEAD: Normocephalic. EYES: Normal reaction of pupils, equal size. NOSE: Clear with pink turbinates. THROAT: No erythema or exudates. NECK: No masses, no JVD. CHEST: No chest wall deformity. LUNGS: Equal air entry with crackles in the posterior bases. CVS: S1 and S2 normal with no audible murmur, regular rhythm. ABDOMEN: No hepatosplenomegaly, normal bowel sounds, no guarding or rigidity. SPINE: No scoliosis or deformity SKIN: No rashes CENTRAL NERVOUS SYSTEM: No focal deficits, tone is normal in all 4 extremities. EXTREMITIES: There is no peripheral edema. No clubbing, no cyanosis. Peripheral pulses are intact. - Labs CBC & Chem 7: 11/29/20 08:01 11/29/20 08:01 Labs: Abnormal Lab Results - Last 24 Hours (Table) 11/28/20 11/29/20 11/29/20 Range/Units 20:42 05:47 08:01 WBC 11.8 H (3.8-10.6) k/uL RBC 3.28 L (4.30-5.90) m/uL Hgb 9.6 L (13.0-17.5) gm/dL Hct 30.4 L (39.0-53.0) % Neutrophils # 11.0 H (1.3-7.7) k/uL Lymphocytes # 0.3 L (1.0-4.8) k/uL Chloride (98-107) mmol/L BUN (9-20) mg/dL Glucose (74-99) mg/dL POC Glucose (mg/dL) 144 H 116 H (75-99) mg/dL AST (17-59) U/L ALT (4-49) U/L Total Protein (6.3-8.2) g/dL Albumin (3.5-5.0) g/dL 11/29/20 11/29/20 Range/Units 08:01 11:46 WBC (3.8-10.6) k/uL RBC (4.30-5.90) m/uL Hgb (13.0-17.5) gm/dL Hct (39.0-53.0) % Neutrophils # (1.3-7.7) k/uL Lymphocytes # (1.0-4.8) k/uL Chloride 108 H (98-107) mmol/L BUN 30 H (9-20) mg/dL Glucose 120 H (74-99) mg/dL POC Glucose (mg/dL) 119 H (75-99) mg/dL AST 78 H (17-59) U/L ALT 62 H (4-49) U/L Total Protein 5.8 L (6.3-8.2) g/dL Albumin 2.7 L (3.5-5.0) g/dL Microbiology - Last 24 Hours (Table) 11/25/20 17:32 Blood Culture - Preliminary Blood No Growth after 72 hours 11/25/20 14:43 Blood Culture - Preliminary Blood No Growth after 72 hours Assessment and Plan Plan: 1 acute Covid 19 related pneumonia. The patient developed symptoms on 11/09 2020, diagnosed on 11/16/2020, hospitalized and treated with a combination of Decadron and Remdesivir , to be readmitted back to the hospital because of worsening shortness of breath and hypoxemia, and a CT angiogram showing markos ateral pulmonary embolism, worsening of the bilateral community related pneumonia . Continue ceftriaxone lung base bilaterally. Oxygen requirements is fluctuating between 3 and 4 L. Remains on IV Solu-Medrol and Baricitinib. Remains on Eliquis. We'll hold off his discharge for now and monitor this case here in the hospital. The patient is not comfortable leaving home yet. 2 Covid 19 related pneumonia with interval progression of the right the pulmonary infiltrates 3 bilateral small pulmonary emboli secondary to Covid 19 infection 4 acute hypoxic respiratory failure secondary to above, 5 elevated inflammatory markers including d-dimer is and LDH 6 shortness of breath secondary to above Plan May hold off on discharging home and keep the patient on 4 L of oxygen by nasal cannula and the patient has home O2 Continue Eliquis 5 mg by mouth twice a day Stopped IV Solu-Medrol and stop the Baricitinib Doppler of the lower extremities came back negative Check pro calcitonin level was low at 0.22 Monitor oxygenation is home and the patient has a pulse oximeter Will monitor the patient's progress here in the hospital for another few days.
[2020-11-29 16:42] LABS: Glucose,Whole Blood 125 mg/dL (75-99)
[2020-11-29] MEDS: SODIUM CHLORIDE 0.9% 1,000 ML IV SCH (17:15)
--- NOTE | 2020-11-29 17:20 | P.PN ---
Subjective Progress Note Date: 11/29/20 Principal diagnosis: COVID-19 pneumonia Acute hypoxemic respiratory failure Bilateral PE 65-year-old male with a past medical history of COVID-19 pneumonia diagnosed on 11/16/2020 coming into the hospital with a chief complaint of difficulty in breathing. Patient was recently discharged from the hospital 3 days after being treated for COVID-19 pneumonia. He is not vaccinated and he does not have significant past medical history. During that hospital admission patient received remdesivir and Decadron he was discharged home on steroids for 4 more d ays. Patient states that since being discharged he felt okay for a day or so but later on started to have worsening shortness of breath. Patient denied having any fever chills or rigors. He denied having any chest pain or palpitations. He denied having any swelling of his lower extremities. He complained of exertional dyspnea. Objective - Vital Signs Vital signs: Vital Signs Temp 98.0 F 11/29/20 17:13 Pulse 87 11/29/20 17:13 Resp 19 11/29/20 17:13 BP 119/75 11/29/20 17:13 Pulse Ox 91 L 11/29/20 17:13 Intake & Output 11/28/20 11/29/20 11/29/20 18:59 06:59 18:59 Intake Total 720 10 240 Balance 720 10 240 Weight 72 kg Intake: IV 10 Invasive Line 3 10 Oral 720 240 Other: Voiding Method Toilet Toilet # Voids 3 3 3 # Bowel Movements 1 - Exam GENERAL: The patient is alert and oriented x3, not in any acute distress. Well developed, well nourished. HEENT: Pupils are round and equally reacting to light. EOMI. No scleral icterus. No conjunctival pallor. Normocephalic, atraumatic. No pharyngeal erythema. No thyromegaly. CARDIOVASCULAR: S1 and S2 present. No murmurs, rubs, or gallops. PULMONARY: Chest is clear to auscultation, no wheezing or crackles. ABDOMEN: Soft, nontender, nondistended, normoactive bowel sounds. No palpable organomegaly. MUSCULOSKELETAL: No joint swelling or deformity. EXTREMITIES: No cyanosis, clubbing, or pedal edema. NEUROLOGICAL: Gross neurological examination did not reveal any focal deficits. SKIN: No rashes. No petechiae - Labs CBC & Chem 7: 11/29/20 08:01 11/29/20 08:01 Labs: Abnormal Lab Results - Last 24 Hours (Table) 11/28/20 11/29/20 11/29/20 Range/Units 20:42 05:47 08:01 WBC 11.8 H (3.8-10.6) k/uL RBC 3.28 L (4.30-5.90) m/uL Hgb 9.6 L (13.0-17.5) gm/dL Hct 30.4 L (39.0-53.0) % Neutrophils # 11.0 H (1.3-7.7) k/uL Lymphocytes # 0.3 L (1.0-4.8) k/uL Chloride (98-107) mmol/L BUN (9-20) mg/dL Glucose (74-99) mg/dL POC Glucose (mg/dL) 144 H 116 H (75-99) mg/dL AST (17-59) U/L ALT (4-49) U/L Total Protein (6.3-8.2) g/dL Albumin (3.5-5.0) g/dL 11/29/20 11/29/20 11/29/20 Range/Units 08:01 11:46 16:37 WBC (3.8-10.6) k/uL RBC (4.30-5.90) m/uL Hgb (13.0-17.5) gm/dL Hct (39.0-53.0) % Neutrophils # (1.3-7.7) k/uL Lymphocytes # (1.0-4.8) k/uL Chloride 108 H (98-107) mmol/L BUN 30 H (9-20) mg/dL Glucose 120 H (74-99) mg/dL POC Glucose (mg/dL) 119 H 125 H (75-99) mg/dL AST 78 H (17-59) U/L ALT 62 H (4-49) U/L Total Protein 5.8 L (6.3-8.2) g/dL Albumin 2.7 L (3.5-5.0) g/dL Microbiology - Last 24 Hours (Table) 11/25/20 17:32 Blood Culture - Preliminary Blood No Growth after 72 hours 11/25/20 14:43 Blood Culture - Preliminary Blood No Growth after 72 hours Assessment and Plan Assessment: Acute COVID-19 pneumonia Acute hypoxic respiratory failure secondary to COVID-19 pneumonia Bilateral small pulmonary emboli in lower lobes Elevated inflammatory markers Plan: This is a pleasant 65 years old male who presents with bilateral PE on to Covid infection Continue with Eliquis Continue with Solu-Medrol 60 mg and multiple vitamins, vitamin C, D and zinc oxide. Also baricitinib added Labs and medication were reviewed.. Continue same treatment. Continue with symptomatic treatment. Resume home medication. Monitor lytes and vitals. DVT and GI prophylaxis. Further recommendations depends on the clinical course of the patient DVT prophylaxis: heparin GI Prophylaxis: Ppi Prognosis is guarded
[2020-11-29 20:35] LABS: Glucose,Whole Blood 151 mg/dL (75-99)
[2020-11-30] MEDS: methylPREDNISolone SOD SUCCI 125 MG/2 ML VIAL IV SCH ×5 (00:24→23:54)
[2020-11-30 06:18] LABS: Glucose,Whole Blood 130 mg/dL (75-99)
[2020-11-30] MEDS: INSULIN ASPART (NovoLOG) 100 UNIT/ML VIAL SQ SCH ×4 (06:24→20:52)
[2020-11-30] MEDS: PANTOPRAZOLE 40 MG TABLET PO SCH ×2 (06:30→17:24)
[2020-11-30] MEDS: ALBUTEROL HFA INHALER INHALATION SCH ×4 (09:23→20:13)
[2020-11-30] MEDS: APIXABAN 5 MG TAB PO SCH ×2 (09:24→20:53)
[2020-11-30] MEDS: CHOLECALCIFEROL 25 MCG (1000 IU) TABLET PO SCH (09:24)
[2020-11-30] MEDS: ASCORBIC ACID 500 MG TAB PO SCH (09:24)
[2020-11-30] MEDS: ZINC SULFATE 220 MG CAP PO SCH (09:25)
[2020-11-30] MEDS: BARICITINIB 2 MG TABLET PO SCH (09:25)
[2020-11-30 09:56] LABS: Basophils % (A) 0 %; Eosinophils % (A) 0 %; HCT 29.3 % (39.0-53.0); HGB 9.5 gm/dL (13.0-17.5); Lymphocytes # (A) 0.3 k/uL (1.0-4.8); Lymphocytes % (A) 3 %; MCH 29.7 pg (25.0-35.0); MCHC 32.5 g/dL (31.0-37.0); MCV 91.3 fL (80.0-100.0); Monocytes # (A) 0.2 k/uL (0-1.0); Monocytes % (A) 2 %; Neutrophils # (A) 10.1 k/uL (1.3-7.7); Neutrophils % (A) 94 %; Platelet Count 229 k/uL (150-450); RBC 3.21 m/uL (4.30-5.90); RDW 13.2 % (11.5-15.5); WBC 10.7 k/uL (3.8-10.6)
[2020-11-30 10:17] LABS: ALT 68 U/L (4-49); AST 63 U/L (17-59); African American GFR (CKD) >90 (>60 ml/min/1.73 sqM); Albumin 2.6 g/dL (3.5-5.0); Alkaline Phosphatase 67 U/L (38-126); Anion Gap 8 mmol/L; Blood Urea Nitrogen 29 mg/dL (9-20); Calcium 8.4 mg/dL (8.4-10.2); Carbon Dioxide 23 mmol/L (22-30); Chloride 109 mmol/L (98-107); Glucose 155 mg/dL (74-99); Non-African American GFR(CKD) >90 (>60 ml/min/1.73 sqM); Potassium 3.7 mmol/L (3.5-5.1); Sodium 140 mmol/L (137-145); Total Bilirubin 0.7 mg/dL (0.2-1.3); Total Protein 5.4 g/dL (6.3-8.2)
[2020-11-30 12:00] LABS: Glucose,Whole Blood 209 mg/dL (75-99)
--- NOTE | 2020-11-30 12:00 | P.PN ---
Subjective Progress Note Date: 11/30/20 This is a 65-year-old male patient, who is coming in for worsening shortness of breath and worsening hypoxemia after leaving the hospital around 3 days ago where he received treatment for community related pneumonia. Our practice and services were involved in his care and our nurse practitioners remembered this patient's case. The patient isn't vaccinated 65-year-old male with no significant past medical history, hospitalized approximately a week ago and during the course of his treatment, the patient was given steroids and Remdesivir, and the patient was discharged home on Decadron 6 mg for additional 4 days addition to albuterol rescue inhaler and protonic 40 mg by mouth daily and zinc 220 mg by mouth daily. The patient presented back to the hospital because of worsening shortness of breath. Note that his initial diagnoses was on 11/16/2020. The patient has been symptomatic however since 11/09/2020. Despite his worsening shortness of breath, he denied having any chest pain. He came into the hospital he was found to have a pulse ox in the mid 80s on 3 L of oxygen by nasal cannula. He is afebrile hemodynamically stable. His chest x- ray showed worsening in the lower lobe by a pulmonary infiltrates. He did have some minimal interstitial lung bases especially on the left and there is obvious progression and the chest x-ray findings. White cell count is at 12.2. No lymphopenia. Coagulation profile is within normal. D-dimer is more than 34. BUN is at 33 with a creatinine of 0.9. Lactic S level is at 2.4. LDH was 1359 with a CRP of 18.2. Liver function tests are essentially within normal limits. Based on all this, a CT angiogram of the chest was done and the CTA showed diffuse vascular, infiltrates consistent with community related pneumonia. There is worsening of the multifocal groundglass pulmonary opacities bilaterally with areas of organization consolidation more so in the lower lobes. The same time, there was small peripheral pulmonary emboli bilaterally involving the lower lobes. No RV strain pattern. Doppler of the lower extremity will be ordered and this has not been completed yet. For now, the patient is on IV heparin drip. Steroids will be restarted. He did have home worsening in his oxygenation. He was placed on 6 L initially and later on he was switched to a BiPAP with a full face mask which she is able to tolerate. He is currently at a pressure of 12/5 with an FiO2 of 100%. Cardiac rhythm is sinus. No EKG abnormalities. 11/26/2020, the patient is on 6 L about 2 by nasal cannula and the patient was taken off the BiPAP. Overall, stable, pulse 91% on 6 L of oxygen by nasal cannula. Afebrile. His blood work showing a therapeutic PTT of 56.6 while the patient is on IV heparin. Hemoglobin is at 1.5 with a white cell count of 10.7. Platelet counts are stable at 247. No signs of any bleeding. Electrodes are normal. Renal function is stable with a creatinine of 0.8. His inflammatory markers from yesterday were quite elevated and this was discussed earlier in my notes. Meanwhile, the patient is on treatment for COVID-19 related pneumonia which has progressed and poor embolism. He remains on IV heparin. He remains on IV Solu-Medrol. He is also back on his abdomen since vitamin C and vitamin D and zinc sulfate. 11/27/2020, the patient is on 5 L of oxygen nasal cannula. The patient is off the BiPAP. Doing well. He remains on a combination of IV Solu-Medrol and baricitinib was also added to his regimen. His inflammatory markers were elevated. The patient is also on anticoagulation with IV heparin initially and subsequently to Eliquis as the patient had small bilateral pulmonary emboli, subsegmental. He remains on examination of vitamin C and vitamin D and zinc. His echocardiogram was also completed yesterday and the patient had no strain pattern on his RV. The ventricular ejection fraction was essentially within normal limits and the patient had an ejection fraction of 60-65%. There was mild concentric LVH. No other significant valvular abnormalities have been noted. Pulmonary artery pressure was around 35 mmHg. In terms of his blood work, no new blood work is available from today. Blood sugars tightly elevated related to use of IV Solu-Medrol. Awaiting follow-up inflammatory markers. As stated, he was taken off the IV heparin and he was started on oral Eliquis. No bleeding complications. His current pulse ox is in the order of 91% on 5 L of oxygen by nasal cannula. 11/28/2020, the patient is feeling very well. He is back to his baseline prior to him being admitted to the hospital. He is currently weaned down to 3 L of oxygen by nasal cannula. He is taking a combination of recent Medrol and Baricitinib. He was diagnosed having small bilateral pulmonary emboli and the patient is also on Eliquis. No new complaints otherwise for now. In terms of his blood work, the blood work from yesterday was reviewed. No other changes. His white cell count is at 15.2 today with a hemoglobin of 9.4. He still has some lymphopenia with a lymphocyte count of 0.3. BUN is at 28 with a creatinine of 0.9. LDH level is lower at 952 and a CRP level is also low at 4.1. Rest of the blood work and electrolytes are all within normal limits. Blood sugar slightly elevated at 123. He has home oxygen. On 11/29/2020, the patient is on 4 L of oxygen by nasal cannula. We are planning to discharge this patient home yesterday. Nevertheless, her oxygen requirements were felt to be still quite high and home O2 needed to be arranged. For now, she remains on IV Solu-Medrol, multivitamins, vitamin C and vitamin D and Baricitinib was also added to her regimen. Noted the patient has home O2 and this was given to him from his most recent hospitalization. His current bl ood work from today showing a white cell count of 11.8 with hemoglobin on 0.6. He continues to have some mild transaminitis. AST 62, ALT 71, electrolytes are essentially within normal limits. His LDH level from yesterday was declining it was down to 952. In terms of his oxygenation, the patient is ranging between 3 and 4 L.. Have some desaturation yesterday. He was started on Baricitinib and he was kept here in the hospital. He remains on long-term anticoagulation with Eliquis. He has established bilateral pulmonary embolism on CT angiogram. 11/30/2020, the patient remains on 3 L of oxygen by nasal cannula. No new complaints. Feeling better and somewhat improved compared to yesterday. Less anxious compared to yesterday. He remains on a combination of vitamin C, vitamin D, Baricitinib and steroids. The patient is currently receiving IV Solu Medrol. No new complaints for now. His white cell count is at 10.7 with a hemoglobin of 9.5. His glucose at 155. LFTs are slightly abnormal with AST of 63, ALT of 68, creatinine of 0.8 and normal electrolytes. Noted the patient has home oxygen. We're planning to send this patient home at one point. He became a bit anxious and based on fluctuation his pulse ox banded up keeping him in the hospital for another 24-48 hours. I will today's condition is stable for now. He remains also on anticoagulation with Eliquis 5 mg by mouth twice a day regarding his pulmonary embolism. Objective - Vital Signs Vital signs: Vital Signs Temp 98.0 F 11/30/20 09:28 Pulse 95 11/30/20 09:28 Resp 20 11/30/20 09:28 BP 106/63 11/30/20 09:28 Pulse Ox 92 L 11/30/20 10:35 Intake & Output 11/29/20 11/30/20 11/30/20 18:59 06:59 18:59 Intake Total 590 350 118 Balance 590 350 118 Weight 67 kg Intake: Oral 590 350 118 Other: Voiding Method Toilet Toilet Toilet # Voids 2 3 2 - Exam Patient is having some mild labored breathing. Patient is currently on 3 L of oxygen by nasal cannula HEAD: Normocephalic. EYES: Normal reaction of pupils, equal size. NOSE: Clear with pink turbinates. THROAT: No erythema or exudates. NECK: No masses, no JVD. CHEST: No chest wall deformity. LUNGS: Equal air entry with crackles in the posterior bases. CVS: S1 and S2 normal with no audible murmur, regular rhythm. ABDOMEN: No hepatosplenomegaly, normal bowel sounds, no guarding or rigidity. SPINE: No scoliosis or deformity SKIN: No rashes CENTRAL NERVOUS SYSTEM: No focal deficits, tone is normal in all 4 extremities. EXTREMITIES: There is no peripheral edema. No clubbing, no cyanosis. Perip heral pulses are intact. - Labs CBC & Chem 7: 11/30/20 09:25 11/30/20 09:25 Labs: Abnormal Lab Results - Last 24 Hours (Table) 11/29/20 11/29/20 11/30/20 Range/Units 16:37 20:33 06:16 WBC (3.8-10.6) k/uL RBC (4.30-5.90) m/uL Hgb (13.0-17.5) gm/dL Hct (39.0-53.0) % Neutrophils # (1.3-7.7) k/uL Lymphocytes # (1.0-4.8) k/uL Chloride (98-107) mmol/L BUN (9-20) mg/dL Glucose (74-99) mg/dL POC Glucose (mg/dL) 125 H 151 H 130 H (75-99) mg/dL AST (17-59) U/L ALT (4-49) U/L Total Protein (6.3-8.2) g/dL Albumin (3.5-5.0) g/dL 11/30/20 11/30/20 Range/Units 09:25 09:25 WBC 10.7 H (3.8-10.6) k/uL RBC 3.21 L (4.30-5.90) m/uL Hgb 9.5 L (13.0-17.5) gm/dL Hct 29.3 L (39.0-53.0) % Neutrophils # 10.1 H (1.3-7.7) k/uL Lymphocytes # 0.3 L (1.0-4.8) k/uL Chloride 109 H (98-107) mmol/L BUN 29 H (9-20) mg/dL Glucose 155 H (74-99) mg/dL POC Glucose (mg/dL) (75-99) mg/dL AST 63 H (17-59) U/L ALT 68 H (4-49) U/L Total Protein 5.4 L (6.3-8.2) g/dL Albumin 2.6 L (3.5-5.0) g/dL Microbiology - Last 24 Hours (Table) 11/25/20 17:32 Blood Culture - Preliminary Blood No Growth after 96 hours 11/25/20 14:43 Blood Culture - Preliminary Blood No Growth after 96 hours Assessment and Plan Plan: 1 acute Covid 19 related pneumonia. The patient developed symptoms on 11/09 2020, diagnosed on 11/16/2020, hospitalized and treated with a combination of Decadron and Remdesivir , to be readmitted back to the hospital because of worsening shortness of breath and hypoxemia, and a CT angiogram showing bilateral pulmonary embolism, worsening of the bilateral community related pneumonia . Continue ceftriaxone lung base bilaterally. Oxygen requirements is fluctuating between 3 and 4 L. Remains on IV Solu-Medrol and Baricitinib. Remains on Eliquis. We'll hold off his discharge for now and monitor this case here in the hospital. The patient is not comfortable leaving home yet. The patient this morning is at 3 L of oxygen by nasal cannula. Seems to be much more comfortable compared to yesterday. He is considering to go home within next 24-48 hours as long as his oxidation remains stable. 2 Covid 19 related pneumonia with interval progression of the right the pulmonary infiltrates 3 bilateral small pulmonary emboli secondary to Covid 19 infection 4 acute hypoxic respiratory failure secondary to above, 5 elevated inflammatory markers including d-dimer is and LDH 6 shortness of breath secondary to above Plan keep the patient on oxygen at 3 L C ontinue Eliquis 5 mg by mouth twice a day Stopped IV Solu-Medrol and stop the Baricitinib Doppler of the lower extremities came back negative Check pro calcitonin level was low at 0.22 Monitor oxygenation is home and the patient has a pulse oximeter Increase mobility here in the hospital. No other active issues. Blood work is stable. We'll continue to follow
[2020-11-30] MEDS: SODIUM CHLORIDE 0.9% 1,000 ML IV SCH (17:08)
[2020-11-30 17:09] LABS: Glucose,Whole Blood 119 mg/dL (75-99)
--- NOTE | 2020-11-30 18:28 | P.PN ---
Subjective Progress Note Date: 11/30/20 Principal diagnosis: COVID-19 pneumonia Acute hypoxemic respiratory failure Bilateral PE 65-year-old male with a past medical history of COVID-19 pneumonia diagnosed on 11/16/2020 coming into the hospital with a chief complaint of difficulty in breathing. Patient was recently discharged from the hospital 3 days after being treated for COVID-19 pneumonia. He is not vaccinated and he does not have significant past medical history. During that hospital admission patient received remdesivir and Decadron he was discharged home on steroids for 4 more d ays. Patient states that since being discharged he felt okay for a day or so but later on started to have worsening shortness of breath. Patient denied having any fever chills or rigors. He denied having any chest pain or palpitations. He denied having any swelling of his lower extremities. He complained of exertional dyspnea. 11/30/2020 Patient is seen and evaluated in follow-up; remains on 3 L of oxygen by nasal cannula. Feeling better and somewhat improved compared to yesterday. Less anxious compared to yesterday. -He remains on a combination of vitamin C, vitamin D, Baricitinib and IV Solu Medrol. He remains also on anticoagulation with Eliquis 5 mg by mouth twice a day regarding his pulmonary embolism --His white cell count is at 10.7 with a hemoglobin of 9.5. His glucose at 155. LFTs are slightly abnormal with AST of 63, ALT of 68, creatinine of 0.8 and normal electrolytes. -patient continues to have fluctuation his pulse ox; pulmonary on board and recommending keeping him in the hospital for another 24-48 hours. Objective - Vital Signs Vital signs: Vital Signs Temp 98.0 F 11/30/20 09:28 Pulse 95 11/30/20 09:28 Resp 20 11/30/20 09:28 BP 106/63 11/30/20 09:28 Pulse Ox 88 L 11/30/20 09:32 Intake & Output 11/29/20 11/30/20 11/30/20 18:59 06:59 18:59 Intake Total 590 350 Balance 590 350 Weight 67 kg Intake: Oral 590 350 Other: Voiding Method Toilet Toilet # Voids 2 3 - Exam GENERAL: The patient is alert and oriented x3, not in any acute distress. Well developed, well nourished. HEENT: Pupils are round and equally reacting to light. EOMI. No scleral icterus. No conjunctival pallor. Normocephalic, atraumatic. No pharyngeal erythema. No thyromegaly. CARDIOVASCULAR: S1 and S2 present. No murmurs, rubs, or gallops. PULMONARY: Chest is clear to auscultation, no wheezing or crackles. ABDOMEN: Soft, nontender, nondistended, normoactive bowel sounds. No palpable organomegaly. MUSCULOSKELETAL: No joint swelling or deformity. EXTREMITIES: No cyanosis, clubbing, or pedal edema. NEUROLOGICAL: Gross neurological examination did not reveal any focal deficits. SKIN: No rashes. No petechiae - Labs CBC & Chem 7: 11/30/20 09:25 11/30/20 09:25 Labs: Abnormal Lab Results - Last 24 Hours (Table) 11/29/20 11/29/20 11/29/20 Range/Units 11:46 16:37 20:33 POC Glucose (mg/dL) 119 H 125 H 151 H (75-99) mg/dL 11/30/20 Range/Units 06:16 POC Glucose (mg/dL) 130 H (75-99) mg/dL Microbiology - Last 24 Hours (Table) 11/25/20 17:32 Blood Culture - Preliminary Blood No Growth after 96 hours 11/25/20 14:43 Blood Culture - Preliminary Blood No Growth after 96 hours Assessment and Plan Assessment: Acute COVID-19 pneumonia Acute hypoxic respiratory failure secondary to COVID-19 pneumonia Bilateral small pulmonary emboli in lower lobes Elevated inflammatory markers Plan: This is a pleasant 65 years old male who presents with bilateral PE on to Covid infection Continue with Eliquis Continue with Solu-Medrol 60 mg and multiple vitamins, vitamin C, D and zinc oxide. Also baricitinib added Labs and medication were reviewed.. Continue same treatment. Continue with symptomatic treatment. Resume home medication. Monitor lytes and vitals. DVT and GI prophylaxis. Further recommendations depends on the clinical course of the patient DVT prophylaxis: heparin GI Prophylaxis: Ppi Prognosis is guarded
[2020-11-30 20:16] LABS: Glucose,Whole Blood 144 mg/dL (75-99)
[2020-12-01] MEDS: methylPREDNISolone SOD SUCCI 125 MG/2 ML VIAL IV SCH ×2 (06:03→12:35)
[2020-12-01 06:51] LABS: Basophils % (A) 0 %; Eosinophils % (A) 0 %; HCT 30.6 % (39.0-53.0); Hypochromasia Slight; Lymphocytes # (A) 0.3 k/uL (1.0-4.8); Lymphocytes % (A) 3 %; MCH 30.2 pg (25.0-35.0); MCHC 32.7 g/dL (31.0-37.0); MCV 92.5 fL (80.0-100.0); Mean Platelet Volume 7.8; Monocytes # (A) 0.3 k/uL (0-1.0); Monocytes % (A) 3 %; Neutrophils # (A) 10.2 k/uL (1.3-7.7); Neutrophils % (A) 94 %; Platelet Count 237 k/uL (150-450); RBC 3.31 m/uL (4.30-5.90); RDW 13.6 % (11.5-15.5); WBC 10.9 k/uL (3.8-10.6)
[2020-12-01 07:09] LABS: ALT 101 U/L (4-49); AST 61 U/L (17-59); African American GFR (CKD) >90 (>60 ml/min/1.73 sqM); Albumin 2.7 g/dL (3.5-5.0); Alkaline Phosphatase 68 U/L (38-126); Anion Gap 5 mmol/L; Blood Urea Nitrogen 31 mg/dL (9-20); Calcium 8.6 mg/dL (8.4-10.2); Carbon Dioxide 26 mmol/L (22-30); Chloride 108 mmol/L (98-107); Glucose 106 mg/dL (74-99); Non-African American GFR(CKD) 82 (>60 ml/min/1.73 sqM); Potassium 4.3 mmol/L (3.5-5.1); Sodium 139 mmol/L (137-145); Total Bilirubin 0.8 mg/dL (0.2-1.3); Total Protein 5.5 g/dL (6.3-8.2)
[2020-12-01 07:39] LABS: Glucose,Whole Blood 139 mg/dL (75-99)
[2020-12-01] MEDS: INSULIN ASPART (NovoLOG) 100 UNIT/ML VIAL SQ SCH ×4 (08:41→21:35)
[2020-12-01] MEDS: APIXABAN 5 MG TAB PO SCH ×2 (08:43→21:35)
[2020-12-01] MEDS: ZINC SULFATE 220 MG CAP PO SCH (08:43)
[2020-12-01] MEDS: PANTOPRAZOLE 40 MG TABLET PO SCH ×2 (08:43→17:19)
[2020-12-01] MEDS: ASCORBIC ACID 500 MG TAB PO SCH (08:43)
[2020-12-01] MEDS: BARICITINIB 2 MG TABLET PO SCH (08:44)
[2020-12-01] MEDS: CHOLECALCIFEROL 25 MCG (1000 IU) TABLET PO SCH (08:44)
[2020-12-01] MEDS: ALBUTEROL HFA INHALER INHALATION SCH ×4 (09:37→21:08)
[2020-12-01 11:20] LABS: Glucose,Whole Blood 119 mg/dL (75-99)
--- NOTE | 2020-12-01 14:16 | P.PN ---
Subjective Progress Note Date: 12/01/20 This is a 65-year-old male patient, who is coming in for worsening shortness of breath and worsening hypoxemia after leaving the hospital around 3 days ago where he received treatment for community related pneumonia. Our practice and services were involved in his care and our nurse practitioners remembered this patient's case. The patient isn't vaccinated 65-year-old male with no significant past medical history, hospitalized approximately a week ago and during the course of his treatment, the patient was given steroids and Remdesivir, and the patient was discharged home on Decadron 6 mg for additional 4 days addition to albuterol rescue inhaler and protonic 40 mg by mouth daily and zinc 220 mg by mouth daily. The patient presented back to the hospital because of worsening shortness of breath. Note that his initial diagnoses was on 11/16/2020. The patient has been symptomatic however since 11/09/2020. Despite his worsening shortness of breath, he denied having any chest pain. He came into the hospital he was found to have a pulse ox in the mid 80s on 3 L of oxygen by nasal cannula. He is afebrile hemodynamically stable. His chest x- ray showed worsening in the lower lobe by a pulmonary infiltrates. He did have some minimal interstitial lung bases especially on the left and there is obvious progression and the chest x-ray findings. White cell count is at 12.2. No lymphopenia. Coagulation profile is within normal. D-dimer is more than 34. BUN is at 33 with a creatinine of 0.9. Lactic S level is at 2.4. LDH was 1359 with a CRP of 18.2. Liver function tests are essentially within normal limits. Based on all this, a CT angiogram of the chest was done and the CTA showed diffuse vascular, infiltrates consistent with community related pneumonia. There is worsening of the multifocal groundglass pulmonary opacities bilaterally with areas of organization consolidation more so in the lower lobes. The same time, there was small peripheral pulmonary emboli bilaterally involving the lower lobes. No RV strain pattern. Doppler of the lower extremity will be ordered and this has not been completed yet. For now, the patient is on IV heparin drip. Steroids will be restarted. He did have home worsening in his oxygenation. He was placed on 6 L initially and later on he was switched to a BiPAP with a full face mask which she is able to tolerate. He is currently at a pressure of 12/5 with an FiO2 of 100%. Cardiac rhythm is sinus. No EKG abnormalities. 11/26/2020, the patient is on 6 L about 2 by nasal cannula and the patient was taken off the BiPAP. Overall, stable, pulse 91% on 6 L of oxygen by nasal cannula. Afebrile. His blood work showing a therapeutic PTT of 56.6 while the patient is on IV heparin. Hemoglobin is at 1.5 with a white cell count of 10.7. Platelet counts are stable at 247. No signs of any bleeding. Electrodes are normal. Renal function is stable with a creatinine of 0.8. His inflammatory markers from yesterday were quite elevated and this was discussed earlier in my notes. Meanwhile, the patient is on treatment for COVID-19 related pneumonia which has progressed and poor embolism. He remains on IV heparin. He remains on IV Solu-Medrol. He is also back on his abdomen since vitamin C and vitamin D and zinc sulfate. 11/27/2020, the patient is on 5 L of oxygen nasal cannula. The patient is off the BiPAP. Doing well. He remains on a combination of IV Solu-Medrol and baricitinib was also added to his regimen. His inflammatory markers were elevated. The patient is also on anticoagulation with IV heparin initially and subsequently to Eliquis as the patient had small bilateral pulmonary emboli, subsegmental. He remains on examination of vitamin C and vitamin D and zinc. His echocardiogram was also completed yesterday and the patient had no strain pattern on his RV. The ventricular ejection fraction was essentially within normal limits and the patient had an ejection fraction of 60-65%. There was mild concentric LVH. No other significant valvular abnormalities have been noted. Pulmonary artery pressure was around 35 mmHg. In terms of his blood work, no new blood work is available from today. Blood sugars tightly elevated related to use of IV Solu-Medrol. Awaiting follow-up inflammatory markers. As stated, he was taken off the IV heparin and he was started on oral Eliquis. No bleeding complications. His current pulse ox is in the order of 91% on 5 L of oxygen by nasal cannula. 11/28/2020, the patient is feeling very well. He is back to his baseline prior to him being admitted to the hospital. He is currently weaned down to 3 L of oxygen by nasal cannula. He is taking a combination of recent Medrol and Baricitinib. He was diagnosed having small bilateral pulmonary emboli and the patient is also on Eliquis. No new complaints otherwise for now. In terms of his blood work, the blood work from yesterday was reviewed. No other changes. His white cell count is at 15.2 today with a hemoglobin of 9.4. He still has some lymphopenia with a lymphocyte count of 0.3. BUN is at 28 with a creatinine of 0.9. LDH level is lower at 952 and a CRP level is also low at 4.1. Rest of the blood work and electrolytes are all within normal limits. Blood sugar slightly elevated at 123. He has home oxygen. On 11/29/2020, the patient is on 4 L of oxygen by nasal cannula. We are planning to discharge this patient home yesterday. Nevertheless, her oxygen requirements were felt to be still quite high and home O2 needed to be arranged. For now, she remains on IV Solu-Medrol, multivitamins, vitamin C and vitamin D and Baricitinib was also added to her regimen. Noted the patient has home O2 and this was given to him from his most recent hospitalization. His current bl ood work from today showing a white cell count of 11.8 with hemoglobin on 0.6. He continues to have some mild transaminitis. AST 62, ALT 71, electrolytes are essentially within normal limits. His LDH level from yesterday was declining it was down to 952. In terms of his oxygenation, the patient is ranging between 3 and 4 L.. Have some desaturation yesterday. He was started on Baricitinib and he was kept here in the hospital. He remains on long-term anticoagulation with Eliquis. He has established bilateral pulmonary embolism on CT angiogram. 11/30/2020, the patient remains on 3 L of oxygen by nasal cannula. No new complaints. Feeling better and somewhat improved compared to yesterday. Less anxious compared to yesterday. He remains on a combination of vitamin C, vitamin D, Baricitinib and steroids. The patient is currently receiving IV Solu Medrol. No new complaints for now. His white cell count is at 10.7 with a hemoglobin of 9.5. His glucose at 155. LFTs are slightly abnormal with AST of 63, ALT of 68, creatinine of 0.8 and normal electrolytes. Noted the patient has home oxygen. We're planning to send this patient home at one point. He became a bit anxious and based on fluctuation his pulse ox banded up keeping him in the hospital for another 24-48 hours. I will today's condition is stable for now. He remains also on anticoagulation with Eliquis 5 mg by mouth twice a day regarding his pulmonary embolism. 12/01/2020, the patient remains on 3 L of oxygen by nasal cannula. Doing well per no new complaints. Quite comfortable in his breathing. No interval worsening. I'm going to taken off IV Solu Medrol and put him on a prednisone starting with 40 mg. He remains on Baricitinib 4 mg by mouth daily. He remains on Eliquis 5 mg by mouth daily as the patient was found to have bipolar pulmonary embolism. No other new complaints otherwise for now. IV fluids are currently at KVO. He is active within his bedroom. In terms of his labs, renal function is stable and the patient has mild transaminitis with an AST of 61, ALT of 101, normal electrolytes, white cell count 10.9. Objective - Vital Signs Vital signs: Vital Signs Temp 97.9 F 12/01/20 08:00 Pulse 89 12/01/20 08:00 Resp 20 12/01/20 08:00 BP 114/75 12/01/20 08:00 Pulse Ox 90 L 12/01/20 08:00 Intake & Output 11/30/20 12/01/20 12/01/20 18:59 06:59 18:59 Intake Total 598 Balance 598 Intake: Oral 598 Other: Voiding Method Toilet Toilet Toilet # Voids 2 2 - Exam Patient is having some mild labored breathing. Patient is currently on 3 L of oxygen by nasal cannula HEAD: Normocephalic. EYES: Normal reaction of pupils, equal size. NOSE: Clear with pink turbinates. THROAT: No erythema or exudates. NECK: No masses, no JVD. CHEST: No chest wall deformity. LUNGS: Equal air entry with crackles in the posterior bases. CVS: S1 and S2 normal with no audible murmur, regular rhythm. ABDOMEN: No hepatosplenomegaly, normal bowel sounds, no guarding or rigidity. SPINE: No scoliosis or deformity SKIN: No rashes CENTRAL NERVOUS SYSTEM: No focal deficits, tone is normal in all 4 extremities. EXTREMITIES: There is no peripheral edema. No clubbing, no cyanosis. Peripheral pulses are intact. - Labs CBC & Chem 7: 12/01/20 06:09 12/01/20 06:09 Labs: Abnormal Lab Results - Last 24 Hours (Table) 11/30/20 11/30/20 12/01/20 Range/Units 17:07 20:10 06:09 WBC 10.9 H (3.8-10.6) k/uL RBC 3.31 L (4.30-5.90) m/uL Hgb 10.0 L (13.0-17.5) gm/dL Hct 30.6 L (39.0-53.0) % Neutrophils # 10.2 H (1.3-7.7) k/uL Lymphocytes # 0.3 L (1.0-4.8) k/uL Chloride (98-107) mmol/L BUN (9-20) mg/dL Glucose (74-99) mg/dL POC Glucose (mg/dL) 119 H 144 H (75-99) mg/dL AST (17-59) U/L ALT (4-49) U/L Total Protein (6.3-8.2) g/dL Albumin (3.5-5.0) g/dL 12/01/20 12/01/20 12/01/20 Range/Units 06:09 07:37 11:15 WBC (3.8-10.6) k/uL RBC (4.30-5.90) m/uL Hgb (13.0-17.5) gm/dL Hct (39.0-53.0) % Neutrophils # (1.3-7.7) k/uL Lymphocytes # (1.0-4.8) k/uL Chloride 108 H (98-107) mmol/L BUN 31 H (9-20) mg/dL Glucose 106 H (74-99) mg/dL POC Glucose (mg/dL) 139 H 119 H (75-99) mg/dL AST 61 H (17-59) U/L ALT 101 H (4-49) U/L Total Protein 5.5 L (6.3-8.2) g/dL Albumin 2.7 L (3.5-5.0) g/dL Microbiology - Last 24 Hours (Table) 11/25/20 17:32 Blood Culture - Preliminary Blood No Growth after 120 hours 11/25/20 14:43 Blood Culture - Preliminary Blood No Growth after 120 hours Assessment and Plan Plan: 1 acute Covid 19 related pneumonia. The patient developed symptoms on 11/09 2020, diagnosed on 11/16/2020, hospitalized and treated with a combination of Decadron and Remdesivir , to be readmitted back to the hospital because of worsening shortness of breath and hypoxemia, and a CT angiogram showing bilateral pulmonary embolism, worsening of the bilateral community related pneum onia . Continue ceftriaxone lung base bilaterally. Oxygen requirements is fluctuating between 3 and 4 L. Remains on IV Solu-Medrol and Baricitinib. Remains on Eliquis. We'll hold off his discharge for now and monitor this case here in the hospital. The patient is not comfortable leaving home yet. The patient this morning is at 3 L of oxygen by nasal cannula. His condition has been stable and there is no interval worsening his oxygenation over the past 48 hours 2 acute COVID-19 infection/pneumonia 3 acute bilateral pulmonary embolism secondary to COVID-19 infection 4 acute hypoxic respiratory failure secondary to above, 5 elevated inflammatory markers including d-dimer is and LDH 6 shortness of breath secondary to above Plan keep the patient on oxygen at 3 L C Continue Eliquis 5 mg by mouth twice a day Continue IV Solu Medrol start the patient prednisone 40 mg by mouth daily Continue Baricitinib Doppler of the lower extremities came back negative Check pro calcitonin level was low at 0.22 Monitor oxygenation is home and the patient has a pulse oximeter Increase mobility here in the hospital. Likely home tomorrow
[2020-12-01 17:06] LABS: Glucose,Whole Blood 125 mg/dL (75-99)
[2020-12-01] MEDS: SODIUM CHLORIDE 0.9% 1,000 ML IV SCH (17:15)
--- NOTE | 2020-12-01 17:30 | P.PN ---
Subjective Progress Note Date: 12/01/20 Principal diagnosis: COVID-19 pneumonia Acute hypoxemic respiratory failure Bilateral PE 65-year-old male with a past medical history of COVID-19 pneumonia diagnosed on 11/16/2020 coming into the hospital with a chief complaint of difficulty in breathing. Patient was recently discharged from the hospital 3 days after being treated for COVID-19 pneumonia. He is not vaccinated and he does not have significant past medical history. During that hospital admission patient received remdesivir and Decadron he was discharged home on steroids for 4 more d ays. Patient states that since being discharged he felt okay for a day or so but later on started to have worsening shortness of breath. Patient denied having any fever chills or rigors. He denied having any chest pain or palpitations. He denied having any swelling of his lower extremities. He complained of exertional dyspnea. 11/30/2020 Patient is seen and evaluated in follow-up; remains on 3 L of oxygen by nasal cannula. Feeling better and somewhat improved compared to yesterday. Less anxious compared to yesterday. -He remains on a combination of vitamin C, vitamin D, Baricitinib and IV Solu Medrol. He remains also on anticoagulation with Eliquis 5 mg by mouth twice a day regarding his pulmonary embolism --His white cell count is at 10.7 with a hemoglobin of 9.5. His glucose at 155. LFTs are slightly abnormal with AST of 63, ALT of 68, creatinine of 0.8 and normal electrolytes. -patient continues to have fluctuation his pulse ox; pulmonary on board and recommending keeping him in the hospital for another 24-48 hours. 12/01/2020 -- patient remains on 3 L of oxygen by nasal cannula; breathing comfortably. No interval worsening. Pulmonary on board and recommending to take off IV Solu Medrol and put him on a prednisone starting with 40 mg. He remains on Baricitinib 4 mg by mouth daily, Eliquis 5 mg by mouth daily for bilateral pulmonary embolism. No other new complaints otherwise for now. IV fluids are currently at KVO. He is active within his bedroom. In terms of his labs, renal function is stable and the patient has mild transaminitis with an AST of 61, ALT of 101, normal electrolytes, white cell count 10.9. Per pulmonary recommendations patient will continue with oxygen with plans to wean as able, start patient on prednisone, possible discharge home in next 24 hours if remains stable Objective - Vital Signs Vital signs: Vital Signs Temp 97.9 F 12/01/20 08:00 Pulse 89 12/01/20 08:00 Resp 20 12/01/20 08:00 BP 114/75 12/01/20 08:00 Pulse Ox 90 L 12/01/20 08:00 Intake & Output 11/30/20 12/01/20 12/01/20 18:59 06:59 18:59 Intake Total 598 Balance 598 Intake: Oral 598 Other: Voiding Method Toilet Toilet Toilet # Voids 2 2 - Exam GENERAL: The patient is alert and oriented x3, not in any acute distress. Well developed, well nourished. HEENT: Pupils are round and equally reacting to light. EOMI. No scleral icterus. No conjunctival pallor. Normocephalic, atraumatic. No pharyngeal erythema. No thyromegaly. CARDIOVASCULAR: S1 and S2 present. No murmurs, rubs, or gallops. PULMONARY: Chest is clear to auscultation, no wheezing or crackles. ABDOMEN: Soft, nontender, nondistended, normoactive bowel sounds. No palpable organomegaly. MUSCULOSKELETAL: No joint swelling or deformity. EXTREMITIES: No cyanosis, clubbing, or pedal edema. NEUROLOGICAL: Gross neurological examination did not reveal any focal deficits. SKIN: No rashes. No petechiae - Labs CBC & Chem 7: 12/01/20 06:09 12/01/20 06:09 Labs: Abnormal Lab Results - Last 24 Hours (Table) 11/30/20 11/30/20 11/30/20 Range/Units 11:56 17:07 20:10 WBC (3.8-10.6) k/uL RBC (4.30-5.90) m/uL Hgb (13.0-17.5) gm/dL Hct (39.0-53.0) % Neutrophils # (1.3-7.7) k/uL Lymphocytes # (1.0-4.8) k/uL Chloride (98-107) mmol/L BUN (9-20) mg/dL Glucose (74-99) mg/dL POC Glucose (mg/dL) 209 H 119 H 144 H (75-99) mg/dL AST (17-59) U/L ALT (4-49) U/L Total Protein (6.3-8.2) g/dL Albumin (3.5-5.0) g/dL 12/01/20 12/01/20 12/01/20 Range/Units 06:09 06:09 07:37 WBC 10.9 H (3.8-10.6) k/uL RBC 3.31 L (4.30-5.90) m/uL Hgb 10.0 L (13.0-17.5) gm/dL Hct 30.6 L (39.0-53.0) % Neutrophils # 10.2 H (1.3-7.7) k/uL Lymphocytes # 0.3 L (1.0-4.8) k/uL Chloride 108 H (98-107) mmol/L BUN 31 H (9-20) mg/dL Glucose 106 H (74-99) mg/dL POC Glucose (mg/dL) 139 H (75-99) mg/dL AST 61 H (17-59) U/L ALT 101 H (4-49) U/L Total Protein 5.5 L (6.3-8.2) g/dL Albumin 2.7 L (3.5-5.0) g/dL Microbiology - Last 24 Hours (Table) 11/25/20 17:32 Blood Culture - Preliminary Blood No Growth after 120 hours 11/25/20 14:43 Blood Culture - Preliminary Blood No Growth after 120 hours Assessment and Plan Assessment: Acute COVID-19 pneumonia Acute hypoxic respiratory failure secondary to COVID-19 pneumonia Bilateral small pulmonary emboli in lower lobes Elevated inflammatory markers Plan: This is a pleasant 65 years old male who presents with bilateral PE on to Covid infection Continue with Eliquis Continue with Solu-Medrol 60 mg and multiple vitamins, vitamin C, D and zinc oxide. Also baricitinib added Labs and medication were reviewed.. Continue same treatment. Continue with symptomatic treatment. Resume home medication. Monitor lytes and vitals. DVT and GI prophylaxis. Further recommendations depends on the clinical course of the patient DVT prophylaxis: heparin GI Prophylaxis: Ppi Prognosis is guarded
[2020-12-01 20:52] LABS: Glucose,Whole Blood 122 mg/dL (75-99)
[2020-12-02 06:50] LABS: Glucose,Whole Blood 87 mg/dL (75-99)
[2020-12-02 06:57] LABS: Basophils % (A) 0 %; Eosinophils % (A) 0 %; HCT 30.5 % (39.0-53.0); HGB 10.5 gm/dL (13.0-17.5); Lymphocytes # (A) 0.9 k/uL (1.0-4.8); Lymphocytes % (A) 7 %; MCH 30.7 pg (25.0-35.0); MCHC 34.4 g/dL (31.0-37.0); MCV 89.2 fL (80.0-100.0); Mean Platelet Volume 8.1; Monocytes # (A) 0.5 k/uL (0-1.0); Monocytes % (A) 4 %; Neutrophils # (A) 11.4 k/uL (1.3-7.7); Neutrophils % (A) 89 %; Platelet Count 239 k/uL (150-450); RBC 3.42 m/uL (4.30-5.90); RDW 14.4 % (11.5-15.5); WBC 12.8 k/uL (3.8-10.6)
[2020-12-02 07:13] LABS: ALT 87 U/L (4-49); AST 45 U/L (17-59); African American GFR (CKD) >90 (>60 ml/min/1.73 sqM); Albumin 2.7 g/dL (3.5-5.0); Alkaline Phosphatase 67 U/L (38-126); Anion Gap 4 mmol/L; Blood Urea Nitrogen 35 mg/dL (9-20); Calcium 8.4 mg/dL (8.4-10.2); Carbon Dioxide 27 mmol/L (22-30); Chloride 108 mmol/L (98-107); Globulin 2.7 g/dL; Glucose 84 mg/dL (74-99); Non-African American GFR(CKD) 82 (>60 ml/min/1.73 sqM); Potassium 3.8 mmol/L (3.5-5.1); Sodium 139 mmol/L (137-145); Total Bilirubin 0.8 mg/dL (0.2-1.3); Total Protein 5.4 g/dL (6.3-8.2)
[2020-12-02] MEDS: INSULIN ASPART (NovoLOG) 100 UNIT/ML VIAL SQ SCH ×4 (08:15→20:55)
[2020-12-02] MEDS: ZINC SULFATE 220 MG CAP PO SCH (08:16)
[2020-12-02] MEDS: PANTOPRAZOLE 40 MG TABLET PO SCH ×2 (08:16→16:39)
[2020-12-02] MEDS: CHOLECALCIFEROL 25 MCG (1000 IU) TABLET PO SCH (08:16)
[2020-12-02] MEDS: predniSONE 20 MG TAB PO SCH (08:16)
[2020-12-02] MEDS: ASCORBIC ACID 500 MG TAB PO SCH (08:16)
[2020-12-02] MEDS: APIXABAN 5 MG TAB PO SCH ×2 (08:16→20:55)
[2020-12-02] MEDS: BARICITINIB 2 MG TABLET PO SCH (08:17)
[2020-12-02] MEDS: ALBUTEROL HFA INHALER INHALATION SCH ×4 (09:16→21:13)
[2020-12-02 11:35] LABS: Glucose,Whole Blood 137 mg/dL (75-99)
--- NOTE | 2020-12-02 14:33 | P.PN ---
Subjective Date of service for this note is on 11/28/20 Mr. Hoyos is a 65-year-old male with a past medical history of COVID-19 pneumonia diagnosed on 11/16/2020 coming into the hospital with a chief complaint of difficulty in breathing. Patient was recently discharged from the hospital 3 days after being treated for COVID-19 pneumonia. He is not vaccinated and he does not have significant past medical history. During that hospital admission patient received remdesivir and Decadron he was discharged home on steroids for 4 more days. Patient states that since being discharged he felt okay for a day or so but later on started to have worsening shortness of breath. Patient denied having any fever chills or rigors. He denied having any chest pain or palpitations. He denied having any swelling of his lower extremities. He complained of exertional dyspnea. In the ER at the time of admission patient's vital signs temperature of 98.2, heart rates 100, blood pressure 122/66, saturating at 88% on 6 L of nasal cannula. He had a chest x-ray showing bilateral pneumonia EKG showing normal sinus rhythm with heart rate around [address] Patient also [address] angio of the chest showing small peripheral bilateral pulmonary emboli in the lower lobes w ith no RV strain. And bilateral multifocal groundglass opacities that correlate to his Covid pneumonia. On reviewing his labs white count of 12.2, hemoglobin 10.7, platelets 275. Sodium 136, potassium 4.2, chloride 104, bicarb 25, BUN 33, creatinine 0.91. Lactic acid two-point 1 repeat is 1.6 LDH of 1359, CRP of 18.2, albumin of 2.8. D-dimer more than 34. Patient was started on heparin drip and admitted for further management. 11/26/2020 Patient this morning was sitting in bed comfortable, he was on BiPAP machine stating that his breathing is slightly better compared to yesterday. He was saturating 88% on 6 L of oxygen via nasal cannula vitals are stable. WBC is down 10.7 K. BMP is unremarkable Echocardiogram showing ejection fraction of 60-65% He remains on IV heparin for bilateral PE. On multiple vitamins C, D and zinc oxide for his Covid infection 11/27/2020 Patients with bilateral Covid pneumonia with mild dyspnea. He is saturating 91% on 6 L oxygen via nasal cannula slightly better than yesterday. His Procalcitonin is a slightly elevated at 0.2 to however he does not need antibacterial antibiotics No labs from today, was placed on insulin sliding scale He continued on Solu-Medrol 60 mg and Baricitinib . His anticoagulation is wished to Eliquis 5 mg twice a day. He remains on multiple vitamins 11/28/20 Patient breathing is stable, his oxygen saturation is 3-6 L/m to keep oxygen saturation low 90s and high 80s. we discussed the case with pulmonary team and they prefer to keep the patient bowel as his stable for discharge Chest x-ray showing persistent bilateral pulmonary infiltrate. WBC is down 13.2 K. Echocardiogram showing ejection fraction of 60-65% He remains on Eliquis for bilateral PE. On multiple vitamins C, D and zinc oxide for his Covid infection, and Baricitinib Subjective: 12/02/20 Patient this morning he was sitting in bed, not significantly dyspneic or tachypneic, he was asking eagerly to be discharged home today. Was on 3 L/m of oxygen via nasal cannula. However during the day his oxygen requirement worsened up to 10 L/m. He is afebrile. Labs including CBC and BMP were unremarkable. Liver enzymes looks stable. Remains on a prednisone 40 mg, multiple vitamins including vitamin C, D and zinc Also he is on Eliquis 5 mg twice a day for his bilateral PE.nd Baricitinib Pulmonary team on the case Objective - Vital Signs Vital signs: Vital Signs Temp 97.8 F 12/02/20 14:04 Pulse 92 12/02/20 14:04 Resp 18 12/02/20 14:04 BP 145/82 12/02/20 14:04 Pulse Ox 90 L 12/02/20 14:04 Intake & Output 12/01/20 12/02/20 12/02/20 18:59 06:59 18:59 Intake Total 400 1000 Balance 400 1000 Intake: Oral 400 1000 Other: Voiding Method Toilet Toilet # Voids 2 2 - Exam GENERAL: The patient is alert and oriented x3, not in any acute distress. Well developed, well nourished. HEENT: Pupils are round and equally reacting to light. EOMI. No scleral icterus. No conjunctival pallor. Normocephalic, atraumatic. No pharyngeal erythema. No thyromegaly. CARDIOVASCULAR: S1 and S2 present. No murmurs, rubs, or gallops. PULMONARY: Chest is clear to auscultation, no wheezing or crackles. ABDOMEN: Soft, nontender, nondistended, normoactive bowel sounds. No palpable organomegaly. MUSCULOSKELETAL: No joint swelling or deformity. EXTREMITIES: No cyanosis, clubbing, or pedal edema. NEUROLOGICAL: Gross neurological examination did not reveal any focal deficits. SKIN: No rashes. No petechiae - Labs CBC & Chem 7: 12/02/20 06:35 12/02/20 06:35 Labs: Abnormal Lab Results - Last 24 Hours (Table) 12/01/20 12/01/20 12/02/20 Range/Units 17:05 20:50 06:35 WBC 12.8 H (3.8-10.6) k/uL RBC 3.42 L (4.30-5.90) m/uL Hgb 10.5 L (13.0-17.5) gm/dL Hct 30.5 L (39.0-53.0) % Neutrophils # 11.4 H (1.3-7.7) k/uL Lymphocytes # 0.9 L (1.0-4.8) k/uL Chloride (98-107) mmol/L BUN (9-20) mg/dL POC Glucose (mg/dL) 125 H 122 H (75-99) mg/dL ALT (4-49) U/L Total Protein (6.3-8.2) g/dL Albumin (3.5-5.0) g/dL 12/02/20 12/02/20 Range/Units 06:35 11:33 WBC (3.8-10.6) k/uL RBC (4.30-5.90) m/uL Hgb (13.0-17.5) gm/dL Hct (39.0-53.0) % Neutrophils # (1.3-7.7) k/uL Lymphocytes # (1.0-4.8) k/uL Chloride 108 H (98-107) mmol/L BUN 35 H (9-20) mg/dL POC Glucose (mg/dL) 137 H (75-99) mg/dL ALT 87 H (4-49) U/L Total Protein 5.4 L (6.3-8.2) g/dL Albumin 2.7 L (3.5-5.0) g/dL Microbiology - Last 24 Hours (Table) 11/25/20 17:32 Blood Culture - Final Blood No Growth after 144 hours 11/25/20 14:43 Blood Culture - Final Blood No Growth after 144 hours Assessment and Plan Assessment: Acute COVID-19 pneumonia Acute hypoxic respiratory failure secondary to COVID-19 pneumonia Bilateral small pulmonary emboli in lower lobes Elevated inflammatory markers Plan: This is a pleasant 65 years old male who presents with bilateral PE on to Covid infection Continue with Eliquis Continue with steroids per pulmonary recommendation, currently on prednisone 40 mg and multiple vitamins, vitamin C, D and zinc oxide. Also baricitinib added Labs and medication were reviewed.. Continue same treatment. Continue with symptomatic treatment. Resume home medication. Monitor lytes and vitals. DVT and GI prophylaxis. Further recommendations depends on the clinical course of the patient DVT prophylaxis: heparin GI Prophylaxis: Ppi Prognosis is guarded
--- NOTE | 2020-12-02 14:42 | XR ---
EXAMINATION TYPE: XR chest 1V portable DATE OF EXAM: 12/02/2020 COMPARISON: Chest x-ray 11/28/2020 HISTORY: Covid 19 infection TECHNIQUE: Single frontal view of the chest is obtained. FINDINGS: Patchy density at the lung bases shows a similar appearance. There is no evident pneumotho rax or pleural effusion. Cardiac mediastinal silhouette shows a similar appearance, aorta is dense. B ones are stable. IMPRESSION: Findings could be indicative of underlying pneumonia.
[2020-12-02 15:00] VITALS: BMI 23.8
--- NOTE | 2020-12-02 15:52 | P.PN ---
Subjective Progress Note Date: 12/02/20 Principal diagnosis: COVID-19 pneumonia On 12/02/2020 patient seen in follow-up on medical surgical floor, this morning and attempt was made to wean down his oxygen from 10 L to 7 L however patient Desaturating into the high 70s low 80s, and he is currently on 7 L of oxygen his pulse ox of 79%. Does not appear to be in any acute respiratory distress, however his oxygen flow had to be increased again to 10-15 L in view of his persistent hypoxemia, patient denied any fever or chills, however she feels extremely frustrated because she was hoping to be able to go home today. On 10 L of oxygen his pulse ox is 90%. With any exertion patient desaturates and takes a while to recover. His chest x-ray today shows patchy density at the lung bases no evident pneumothorax. Patient continues on oral prednisone 40 mg daily, he is on Eliquis 5 mg twice daily, and Baricitinib. Today's labs have been reviewed, we will blood cell count is 12.8, hemoglobin is 10.5, sodium is 139, potassium is 3.8, chloride is 108, CO2 27, B1 is 35 creatinine 0.97. Patient was retested for COVID-19 and was again positive. His was asking to be able to visit her however in view of the current policy patient is still positive for COVID-19. Objective - Vital Signs Vital signs: Vital Signs Temp 97.8 F 12/02/20 14:04 Pulse 92 12/02/20 14:04 Resp 18 12/02/20 14:04 BP 145/82 12/02/20 14:04 Pulse Ox 90 L 12/02/20 14:04 Intake & Output 12/01/20 12/02/20 12/02/20 18:59 06:59 18:59 Intake Total 400 1000 Balance 400 1000 Weight 67 kg Intake: Oral 400 1000 Other: Voiding Method Toilet Toilet # Voids 2 2 - Exam GENERAL EXAM: Alert, very pleasant, 65-year-old white male, on the 10 L of oxygen a pulse ox of 90% comfortable in no apparent distress. HEAD: Normocephalic/atraumatic. EYES: Normal reaction of pupils, equal size. Conjunctiva pink, sclera white. NOSE: Clear with pink turbinates. THROAT: No erythema or exudates. NECK: No masses, no JVD, no thyroid enlargement, no adenopathy. CHEST: No chest wall deformity. Symmetrical expansion. LUNGS: Equal air entry with diffuse crackles CVS: Regular rate and rhythm, normal S1 and S2, no gallops, no murmurs, no rubs ABDOMEN: Soft, nontender. No hepatosplenomegaly, normal bowel sounds, no guarding or rigidity. EXTREMITIES: No clubbing, no edema, no cyanosis, 2+ pulses and upper and lower extremities. MUSCULOSKELETAL: Muscle strength and tone normal. SPINE: No scoliosis or deformity SKIN: No rashes CENTRAL NERVOUS SYSTEM: Alert and oriented -3. No focal deficits, tone is normal in all 4 extremities. PSYCHIATRIC: Alert and oriented -3. Appropriate affect. Intact judgment and insight. - Labs CBC & Chem 7: 12/02/20 06:35 12/02/20 06:35 Labs: Abnormal Lab Results - Last 24 Hours (Table) 12/01/20 12/01/20 12/02/20 Range/Units 17:05 20:50 06:35 WBC 12.8 H (3.8-10.6) k/uL RBC 3.42 L (4.30-5.90) m/uL Hgb 10.5 L (13.0-17.5) gm/dL Hct 30.5 L (39.0-53.0) % Neutrophils # 11.4 H (1.3-7.7) k/uL Lymphocytes # 0.9 L (1.0-4.8) k/uL Chloride (98-107) mmol/L BUN (9-20) mg/dL POC Glucose (mg/dL) 125 H 122 H (75-99) mg/dL ALT (4-49) U/L Total Protein (6.3-8.2) g/dL Albumin (3.5-5.0) g/dL 12/02/20 12/02/20 Range/Units 06:35 11:33 WBC (3.8-10.6) k/uL RBC (4.30-5.90) m/uL Hgb (13.0-17.5) gm/dL Hct (39.0-53.0) % Neutrophils # (1.3-7.7) k/uL Lymphocytes # (1.0-4.8) k/uL Chloride 108 H (98-107) mmol/L BUN 35 H (9-20) mg/dL POC Glucose (mg/dL) 137 H (75-99) mg/dL ALT 87 H (4-49) U/L Total Protein 5.4 L (6.3-8.2) g/dL Albumin 2.7 L (3.5-5.0) g/dL Microbiology - Last 24 Hours (Table) 11/25/20 17:32 Blood Culture - Final Blood No Growth after 144 hours 11/25/20 14:43 Blood Culture - Final Blood No Growth after 144 hours Assessment and Plan Plan: Assessment: #1. Acute COVID-19 related pneumonia, with onset of symptoms of 11/09/2020, diagnosed on 11/16/2020, hospitalized and treated with a combination of Decadron and Remdesivir, to be readmitted back to the hospital related to worsening shortness of breath and hypoxia. Currently on Prednisone, Baricitnib and Eliquis remains on high flow oxygen today on 12/02/2020. Patient was not vaccinated for COVID-19 #2. Bilateral pulmonary emboli, with CTA chest completed on 11/25/2020 showing small peripheral pulmonary emboli and bilateral lower lobes, no RV strain. Patient has been started on Eliquis 5 mg twice a day #3. Acute hypoxic respiratory failure secondary to the above #4. Elevated inflammatory markers including LDH and a d-dimer and CRP related t o a viral pneumonia #5. Shortness of breath related to the above Plan: Continue current medical treatment Continue prednisone Continue oral anticoagulation, Baricitinib Follow-up chest x-ray has been reviewed Encourage the patient to reposition self in bed, prone in bed, deep breathing He tested positive again for COVID-19 He needs to remain in isolation Overall prognosis is guarded I performed a history & physical examination of the patient and discussed their management with my nurse practitioner, Kavita Chris. I reviewed the nurse practitioner's note and agree with the documented findings and plan of care. Lung sounds are positive for diminished breath sounds with crackles throughout the lung murphy. The findings and the impression was discussed with the patient. I attest to the documentation by the nurse practitioner. Time with Patient: Less than 30
[2020-12-02 16:27] LABS: Glucose,Whole Blood 120 mg/dL (75-99)
[2020-12-02] MEDS: SODIUM CHLORIDE 0.9% 1,000 ML IV SCH (18:02)
[2020-12-02 20:40] LABS: Glucose,Whole Blood 145 mg/dL (75-99)
[2020-12-03 07:04] LABS: Glucose,Whole Blood 99 mg/dL (75-99)
[2020-12-03 07:46] LABS: ALT 78 U/L (4-49); AST 39 U/L (17-59); African American GFR (CKD) >90 (>60 ml/min/1.73 sqM); Albumin 2.6 g/dL (3.5-5.0); Alkaline Phosphatase 74 U/L (38-126); Anion Gap 6 mmol/L; Blood Urea Nitrogen 30 mg/dL (9-20); Calcium 8.2 mg/dL (8.4-10.2); Carbon Dioxide 25 mmol/L (22-30); Chloride 106 mmol/L (98-107); Globulin 2.7 g/dL; Glucose 82 mg/dL (74-99); Non-African American GFR(CKD) >90 (>60 ml/min/1.73 sqM); Potassium 3.9 mmol/L (3.5-5.1); Sodium 137 mmol/L (137-145); Total Bilirubin 0.9 mg/dL (0.2-1.3); Total Protein 5.3 g/dL (6.3-8.2)
[2020-12-03 07:54] LABS: Basophils % (A) 0 %; Eosinophils # (A) 0.1 k/uL (0-0.7); Eosinophils % (A) 1 %; HCT 31.2 % (39.0-53.0); HGB 10.2 gm/dL (13.0-17.5); Lymphocytes # (A) 0.7 k/uL (1.0-4.8); Lymphocytes % (A) 7 %; MCH 30.4 pg (25.0-35.0); MCHC 32.7 g/dL (31.0-37.0); Mean Platelet Volume 7.9; Monocytes # (A) 0.4 k/uL (0-1.0); Monocytes % (A) 4 %; Neutrophils % (A) 87 %; Platelet Count 201 k/uL (150-450); RBC 3.35 m/uL (4.30-5.90); WBC 10.4 k/uL (3.8-10.6)
[2020-12-03] MEDS: ALBUTEROL HFA INHALER INHALATION SCH ×4 (07:58→20:28)
[2020-12-03] MEDS: INSULIN ASPART (NovoLOG) 100 UNIT/ML VIAL SQ SCH ×4 (08:34→21:35)
[2020-12-03] MEDS: ASCORBIC ACID 500 MG TAB PO SCH (08:39)
[2020-12-03] MEDS: ZINC SULFATE 220 MG CAP PO SCH (08:39)
[2020-12-03] MEDS: PANTOPRAZOLE 40 MG TABLET PO SCH ×2 (08:40→16:44)
[2020-12-03] MEDS: CHOLECALCIFEROL 25 MCG (1000 IU) TABLET PO SCH (08:40)
[2020-12-03] MEDS: APIXABAN 5 MG TAB PO SCH ×2 (08:40→21:36)
[2020-12-03] MEDS: predniSONE 20 MG TAB PO SCH (08:40)
[2020-12-03] MEDS: BARICITINIB 2 MG TABLET PO SCH (08:41)
[2020-12-03] MEDS ORDERED: FUROSEMIDE 10 MG/ML 4 ML VIAL IV STA (10:04)
[2020-12-03] MEDS: ALPRAZolam 0.25 MG TAB PO PRN (10:13)
--- NOTE | 2020-12-03 10:35 | XR ---
EXAMINATION TYPE: XR chest 1V portable DATE OF EXAM: 12/03/2020 COMPARISON: Chest x-ray 12/02/2020 HISTORY: Covid positive, shortness of breath TECHNIQUE: Single frontal view of the chest is obtained. FINDINGS: Bilateral patchy airspace disease is present especially in the lung bases, peripherally. N o evident pneumothorax or pleural effusion. Cardiomediastinal silhouette is stable. There is likely u nderlying emphysema. There are overlying artifacts. IMPRESSION: Findings consistent with patient's history.
[2020-12-03 11:48] LABS: Glucose,Whole Blood 107 mg/dL (75-99)
--- NOTE | 2020-12-03 12:52 | P.PN ---
Subjective Date of service for this note is on 11/28/20 Mr. Hoyos is a 65-year-old male with a past medical history of COVID-19 pneumonia diagnosed on 11/16/2020 coming into the hospital with a chief complaint of difficulty in breathing. Patient was recently discharged from the hospital 3 days after being treated for COVID-19 pneumonia. He is not vaccinated and he does not have significant past medical history. During that hospital admission patient received remdesivir and Decadron he was discharged home on steroids for 4 more days. Patient states that since being discharged he felt okay for a day or so but later on started to have worsening shortness of breath. Patient denied having any fever chills or rigors. He denied having any chest pain or palpitations. He denied having any swelling of his lower extremities. He complained of exertional dyspnea. In the ER at the time of admission patient's vital signs temperature of 98.2, heart rates 100, blood pressure 122/66, saturating at 88% on 6 L of nasal cannula. He had a chest x-ray showing bilateral pneumonia EKG showing normal sinus rhythm with heart rate around [address] Patient also [address] angio of the chest showing small peripheral bilateral pulmonary emboli in the lower lobes w ith no RV strain. And bilateral multifocal groundglass opacities that correlate to his Covid pneumonia. On reviewing his labs white count of 12.2, hemoglobin 10.7, platelets 275. Sodium 136, potassium 4.2, chloride 104, bicarb 25, BUN 33, creatinine 0.91. Lactic acid two-point 1 repeat is 1.6 LDH of 1359, CRP of 18.2, albumin of 2.8. D-dimer more than 34. Patient was started on heparin drip and admitted for further management. 11/26/2020 Patient this morning was sitting in bed comfortable, he was on BiPAP machine stating that his breathing is slightly better compared to yesterday. He was saturating 88% on 6 L of oxygen via nasal cannula vitals are stable. WBC is down 10.7 K. BMP is unremarkable Echocardiogram showing ejection fraction of 60-65% He remains on IV heparin for bilateral PE. On multiple vitamins C, D and zinc oxide for his Covid infection 11/27/2020 Patients with bilateral Covid pneumonia with mild dyspnea. He is saturating 91% on 6 L oxygen via nasal cannula slightly better than yesterday. His Procalcitonin is a slightly elevated at 0.2 to however he does not need antibacterial antibiotics No labs from today, was placed on insulin sliding scale He continued on Solu-Medrol 60 mg and Baricitinib . His anticoagulation is wished to Eliquis 5 mg twice a day. He remains on multiple vitamins 11/28/20 Patient breathing is stable, his oxygen saturation is 3-6 L/m to keep oxygen saturation low 90s and high 80s. we discussed the case with pulmonary team and they prefer to keep the patient bowel as his stable for discharge Chest x-ray showing persistent bilateral pulmonary infiltrate. WBC is down 13.2 K. Echocardiogram showing ejection fraction of 60-65% He remains on Eliquis for bilateral PE. On multiple vitamins C, D and zinc oxide for his Covid infection, and Baricitinib Subjective: 12/02/20 Patient this morning he was sitting in bed, not significantly dyspneic or tachypneic, he was asking eagerly to be discharged home today. Was on 3 L/m of oxygen via nasal cannula. However during the day his oxygen requirement worsened up to 10 L/m. He is afebrile. Labs including CBC and BMP were unremarkable. Liver enzymes looks stable. Remains on a prednisone 40 mg, multiple vitamins including vitamin C, D and zinc Also he is on Eliquis 5 mg twice a day for his bilateral PE.nd Baricitinib Pulmonary team on the case 12/03/2020 Patient is still dyspneic, he was able to appropriately this morning, his oxygen requirement worsened yesterday up to 10 L/m. Today he has tube placed on high flow nasal cannula/airvo with FiO2 of 92% at 60 L/m Repeat chest x-ray showing bilateral infiltrates He is on prednisone 40 mg, also he is on Eliquis, vitamin C, vitamin D and zinc.and Baricitinib. He got 1 dose of Lasix today per pulmonary team I discussed the case with pulmonary team today I discussed the case with the patient and over his phone and all their questions were answered. Objective - Vital Signs Vital signs: Vital Signs Temp 97.7 F 12/03/20 10:38 Pulse 80 12/03/20 10:38 Resp 21 12/03/20 10:38 BP 98/66 12/03/20 10:38 Pulse Ox 94 L 12/03/20 11:47 Intake & Output 12/02/20 12/03/20 12/03/20 18:59 06:59 18:59 Output Total 1000 Balance -1000 Weight 67 kg Output: Urine 1000 Other: Voiding Method Toilet # Voids 2 2 - Exam GENERAL: The patient is alert and oriented x3, not in any acute distress. Well developed, well nourished. HEENT: Pupils are round and equally reacting to light. EOMI. No scleral icterus. No conjunctival pallor. Normocephalic, atraumatic. No pharyngeal erythema. No thyromegaly. CARDIOVASCULAR: S1 and S2 present. No murmurs, rubs, or gallops. PULMONARY: Chest is clear to auscultation, no wheezing or crackles. ABDOMEN: Soft, nontender, nondistended, normoactive bowel sounds. No palpable organomegaly. MUSCULOSKELETAL: No joint swelling or deformity. EXTREMITIES: No cyanosis, clubbing, or pedal edema. NEUROLOGICAL: Gross neurological examination did not reveal any focal deficits. SKIN: No rashes. No petechiae - Labs CBC & Chem 7: 12/03/20 06:29 12/03/20 06:29 Labs: Abnormal Lab Results - Last 24 Hours (Table) 12/02/20 12/02/20 12/02/20 Range/Units 14:05 16:25 20:39 RBC (4.30-5.90) m/uL Hgb (13.0-17.5) gm/dL Hct (39.0-53.0) % Neutrophils # (1.3-7.7) k/uL Lymphocytes # (1.0-4.8) k/uL BUN (9-20) mg/dL POC Glucose (mg/dL) 120 H 145 H (75-99) mg/dL Calcium (8.4-10.2) mg/dL ALT (4-49) U/L Total Protein (6.3-8.2) g/dL Albumin (3.5-5.0) g/dL Coronavirus (PCR) Detected A (Not Detectd) 12/03/20 12/03/20 12/03/20 Range/Units 06:29 06:29 11:46 RBC 3.35 L (4.30-5.90) m/uL Hgb 10.2 L (13.0-17.5) gm/dL Hct 31.2 L (39.0-53.0) % Neutrophils # 9.0 H (1.3-7.7) k/uL Lymphocytes # 0.7 L (1.0-4.8) k/uL BUN 30 H (9-20) mg/dL POC Glucose (mg/dL) 107 H (75-99) mg/dL Calcium 8.2 L (8.4-10.2) mg/dL ALT 78 H (4-49) U/L Total Protein 5.3 L (6.3-8.2) g/dL Albumin 2.6 L (3.5-5.0) g/dL Coronavirus (PCR) (Not Detectd) Assessment and Plan Assessment: Acute COVID-19 pneumonia Acute hypoxic respiratory failure secondary to COVID-19 pneumonia Bilateral small pulmonary emboli in lower lobes Elevated inflammatory markers Plan: This is a pleasant 65 years old male who presents with bilateral PE on to Covid infection Continue with Eliquis Continue with steroids per pulmonary recommendation, currently on prednisone 40 mg and multiple vitamins, vitamin C, D and zinc oxide. Also baricitinib Labs and medication were reviewed.. Continue same treatment. Continue with symptomatic treatment. Resume home medication. Monitor lytes and vitals. DVT and GI prophylaxis. Further recommendations depends on the clinical course of the patient DVT prophylaxis: Eliquis GI Prophylaxis: Ppi Prognosis is guarded
--- NOTE | 2020-12-03 14:05 | P.PN ---
Subjective Progress Note Date: 12/03/20 Principal diagnosis: COVID-19 pneumonia On 12/02/2020 patient seen in follow-up on medical surgical floor, this morning and attempt was made to wean down his oxygen from 10 L to 7 L however patient Desaturating into the high 70s low 80s, and he is currently on 7 L of oxygen his pulse ox of 79%. Does not appear to be in any acute respiratory distress, however his oxygen flow had to be increased again to 10-15 L in view of his persistent hypoxemia, patient denied any fever or chills, however she feels extremely frustrated because she was hoping to be able to go home today. On 10 L of oxygen his pulse ox is 90%. With any exertion patient desaturates and takes a while to recover. His chest x-ray today shows patchy density at the lung bases no evident pneumothorax. Patient continues on oral prednisone 40 mg daily, he is on Eliquis 5 mg twice daily, and Baricitinib. Today's labs have been reviewed, we will blood cell count is 12.8, hemoglobin is 10.5, sodium is 139, potassium is 3.8, chloride is 108, CO2 27, B1 is 35 creatinine 0.97. Patient was retested for COVID-19 and was again positive. His was asking to be able to visit her however in view of the current policy patient is still positive for COVID-19. On 12/03/2020 patient seen in follow-up on medical surgical floor. He remains on high flow oxygen, and on 10 L per high flow oxygen his pulse ox is daily 88%, patient desaturates to 79% with any movement even repositioning in bed, his O2 flow has been increased to 15 L, and patient is still saturating around 85-87% and she will be placed on Airvo to maintaining his O2 saturations between 80- 90%. He remains on Eliquis 5 mg twice a day, he remains on prednisone [address] chest did show small peripheral pulmonary emboli. Today's chest x-ray shows bilateral patchy airspace disease at the lung bases peripherally, no evident pneumothorax or pleural effusions. He is maintaned on Baricitinib, he is on multivitamins, he is on prednisone. His labs have been reviewed, his white blood cell count is 10.4, hemoglobin is 10.2, electrolytes are within normal limits, B1 is 30 creatinine 0.83. Lung sounds are positive for coarse crackles at lower and mid lung zones. Pro-calcitonin level has been sent and pending, cultures are negative thus far. Objective - Vital Signs Vital signs: Vital Signs Temp 97.7 F 12/03/20 10:38 Pulse 80 12/03/20 10:38 Resp 21 12/03/20 10:38 BP 98/66 12/03/20 10:38 Pulse Ox 94 L 12/03/20 11:47 Intake & Output 12/02/20 12/03/20 12/03/20 18:59 06:59 18:59 Output Total 1000 Balance -1000 Weight 67 kg Output: Urine 1000 Other: Voiding Method Toilet # Voids 2 2 - Exam GENERAL EXAM: Alert, very pleasant, 65-year-old white male, on the 10 L of oxygen a pulse ox of 76% comfortable in no apparent distress. HEAD: Normocephalic/atraumatic. EYES: Normal reaction of pupils, equal size. Conjunctiva pink, sclera white. NOSE: Clear with pink turbinates. THROAT: No erythema or exudates. NECK: No masses, no JVD, no thyroid enlargement, no adenopathy. CHEST: No chest wall deformity. Symmetrical expansion. LUNGS: Equal air entry with diffuse crackles CVS: Regular rate and rhythm, normal S1 and S2, no gallops, no murmurs, no rubs ABDOMEN: Soft, nontender. No hepatosplenomegaly, normal bowel sounds, no guarding or rigidity. EXTREMITIES: No clubbing, no edema, no cyanosis, 2+ pulses and upper and lower extremities. MUSCULOSKELETAL: Muscle strength and tone normal. SPINE: No scoliosis or deformity SKIN: No rashes CENTRAL NERVOUS SYSTEM: Alert and oriented -3. No focal deficits, tone is normal in all 4 extremities. PSYCHIATRIC: Alert and oriented -3. Appropriate affect. Intact judgment and insight. - Labs CBC & Chem 7: 12/03/20 06:29 12/03/20 06:29 Labs: Abnormal Lab Results - Last 24 Hours (Table) 12/02/20 12/02/20 12/02/20 Range/Units 14:05 16:25 20:39 RBC (4.30-5.90) m/uL Hgb (13.0-17.5) gm/dL Hct (39.0-53.0) % Neutrophils # (1.3-7.7) k/uL Lymphocytes # (1.0-4.8) k/uL BUN (9-20) mg/dL POC Glucose (mg/dL) 120 H 145 H (75-99) mg/dL Calcium (8.4-10.2) mg/dL ALT (4-49) U/L Total Protein (6.3-8.2) g/dL Albumin (3.5-5.0) g/dL Coronavirus (PCR) Detected A (Not Detectd) 12/03/20 12/03/20 12/03/20 Range/Units 06:29 06:29 11:46 RBC 3.35 L (4.30-5.90) m/uL Hgb 10.2 L (13.0-17.5) gm/dL Hct 31.2 L (39.0-53.0) % Neutrophils # 9.0 H (1.3-7.7) k/uL Lymphocytes # 0.7 L (1.0-4.8) k/uL BUN 30 H (9-20) mg/dL POC Glucose (mg/dL) 107 H (75-99) mg/dL Calcium 8.2 L (8.4-10.2) mg/dL ALT 78 H (4-49) U/L Total Protein 5.3 L (6.3-8.2) g/dL Albumin 2.6 L (3.5-5.0) g/dL Coronavirus (PCR) (Not Detectd) Assessment and Plan Plan: Assessment: #1. Acute COVID-19 related pneumonia, with onset of symptoms of 11/09/2020, diagnosed on 11/16/2020, hospitalized and treated with a combination of Decadron and Remdesivir, to be readmitted back to the hospital related to worsening shortness of breath and hypoxia. Currently on Prednisone, Baricitnib and Eliquis remains on high flow oxygen today on 12/02/2020. Patient was not vaccinated for COVID-19. Patient's hypoxia has been progressive in the last 48 hours, and patient will be placed on Airvo today is 60 L and FiO2 of 92% to maintain O2 saturations at 80-90% #2. Bilateral pulmonary emboli, with CTA chest completed on 11/25/2020 showing small peripheral pulmonary emboli and bilateral lower lobes, no RV strain. Patient has been started on Eliquis 5 mg twice a day #3. Acute hypoxic respiratory failure secondary to the above #4. Elevated inflammatory markers including LDH and a d-dimer and CRP related to a viral pneumonia #5. Shortness of breath related to the above Plan: Placed patient on Airvo at 60 l/min and Fio2 of 90% Continue prednisone Continue oral anticoagulation, Baricitinib Will give Lasix 40 mg IVP times one Follow-up chest x-ray has been reviewed Encourage the patient to reposition self in bed, prone in bed, deep breathing Procalcitonin level has been sent and pending Overall prognosis is guarded Continue monitoring for worsening dyspnea and hypoxia I performed a history & physical examination of the patient and discussed their management with my nurse practitioner, Kavita Chris. I reviewed the nurse practitioner's note and agree with the documented findings and plan of care. Lung sounds are positive for diminished breath sounds with crackles throughout the lung murphy. The findings and the impression was discussed with the patient. I attest to the documentation by the nurse practitioner. Time with Patient: Less than 30
[2020-12-03 16:44] LABS: Glucose,Whole Blood 119 mg/dL (75-99)
[2020-12-03] MEDS: SODIUM CHLORIDE 0.9% 1,000 ML IV SCH (16:45)
[2020-12-03 20:53] LABS: Glucose,Whole Blood 118 mg/dL (75-99)
[2020-12-04 07:44] LABS: Basophils % (A) 0 %; Eosinophils # (A) 0.2 k/uL (0-0.7); Eosinophils % (A) 2 %; HCT 35.4 % (39.0-53.0); HGB 11.8 gm/dL (13.0-17.5); Lymphocytes % (A) 9 %; MCH 30.6 pg (25.0-35.0); MCHC 33.5 g/dL (31.0-37.0); MCV 91.3 fL (80.0-100.0); Mean Platelet Volume 7.9; Monocytes # (A) 0.4 k/uL (0-1.0); Monocytes % (A) 4 %; Neutrophils # (A) 9.5 k/uL (1.3-7.7); Neutrophils % (A) 85 %; Platelet Count 237 k/uL (150-450); RBC 3.88 m/uL (4.30-5.90); WBC 11.2 k/uL (3.8-10.6)
[2020-12-04 07:52] LABS: ALT 89 U/L (4-49); AST 40 U/L (17-59); African American GFR (CKD) >90 (>60 ml/min/1.73 sqM); Albumin 3.1 g/dL (3.5-5.0); Alkaline Phosphatase 85 U/L (38-126); Anion Gap 6 mmol/L; Blood Urea Nitrogen 33 mg/dL (9-20); Calcium 8.9 mg/dL (8.4-10.2); Carbon Dioxide 30 mmol/L (22-30); Chloride 101 mmol/L (98-107); Glucose 86 mg/dL (74-99); Non-African American GFR(CKD) 78 (>60 ml/min/1.73 sqM); Potassium 3.9 mmol/L (3.5-5.1); Sodium 137 mmol/L (137-145); Total Bilirubin 0.9 mg/dL (0.2-1.3); Total Protein 6.1 g/dL (6.3-8.2)
[2020-12-04 07:57] LABS: Glucose,Whole Blood 95 mg/dL (75-99)
[2020-12-04] MEDS: INSULIN ASPART (NovoLOG) 100 UNIT/ML VIAL SQ SCH ×4 (08:13→20:35)
[2020-12-04] MEDS: predniSONE 20 MG TAB PO SCH (08:14)
[2020-12-04] MEDS: CHOLECALCIFEROL 25 MCG (1000 IU) TABLET PO SCH (08:14)
[2020-12-04] MEDS: ALPRAZolam 0.25 MG TAB PO PRN (08:14)
[2020-12-04] MEDS: ZINC SULFATE 220 MG CAP PO SCH (08:14)
[2020-12-04] MEDS: ASCORBIC ACID 500 MG TAB PO SCH (08:14)
[2020-12-04] MEDS: BARICITINIB 2 MG TABLET PO SCH (08:14)
[2020-12-04] MEDS: PANTOPRAZOLE 40 MG TABLET PO SCH ×2 (08:15→17:34)
[2020-12-04] MEDS: APIXABAN 5 MG TAB PO SCH ×2 (08:15→20:37)
[2020-12-04] MEDS: ALBUTEROL HFA INHALER INHALATION SCH ×4 (08:37→19:04)
--- NOTE | 2020-12-04 11:45 | P.PN ---
Subjective Date of service for this note is on 11/28/20 Mr. Hoyos is a 65-year-old male with a past medical history of COVID-19 pneumonia diagnosed on 11/16/2020 coming into the hospital with a chief complaint of difficulty in breathing. Patient was recently discharged from the hospital 3 days after being treated for COVID-19 pneumonia. He is not vaccinated and he does not have significant past medical history. During that hospital admission patient received remdesivir and Decadron he was discharged home on steroids for 4 more days. Patient states that since being discharged he felt okay for a day or so but later on started to have worsening shortness of breath. Patient denied having any fever chills or rigors. He denied having any chest pain or palpitations. He denied having any swelling of his lower extremities. He complained of exertional dyspnea. In the ER at the time of admission patient's vital signs temperature of 98.2, heart rates 100, blood pressure 122/66, saturating at 88% on 6 L of nasal cannula. He had a chest x-ray showing bilateral pneumonia EKG showing normal sinus rhythm with heart rate around [address] Patient also had CT angio of the chest showing small peripheral bilateral pulmonary emboli in the lower lobes w ith no RV strain. And bilateral multifocal groundglass opacities that correlate to his Covid pneumonia. On reviewing his labs white count of 12.2, hemoglobin 10.7, platelets 275. Sodium 136, potassium 4.2, chloride 104, bicarb 25, BUN 33, creatinine 0.91. Lactic acid two-point 1 repeat is 1.6 LDH of 1359, CRP of 18.2, albumin of 2.8. D-dimer more than 34. Patient was started on heparin drip and admitted for further management. 11/26/2020 Patient this morning was sitting in bed comfortable, he was on BiPAP machine stating that his breathing is slightly better compared to yesterday. He was saturating 88% on 6 L of oxygen via nasal cannula vitals are stable. WBC is down 10.7 K. BMP is unremarkable Echocardiogram showing ejection fraction of 60-65% He remains on IV heparin for bilateral PE. On multiple vitamins C, D and zinc oxide for his Covid infection 11/27/2020 Patients with bilateral Covid pneumonia with mild dyspnea. He is saturating 91% on 6 L oxygen via nasal cannula slightly better than yesterday. His Procalcitonin is a slightly elevated at 0.2 to however he does not need antibacterial antibiotics No labs from today, was placed on insulin sliding scale He continued on Solu-Medrol 60 mg and Baricitinib . His anticoagulation is wished to Eliquis 5 mg twice a day. He remains on multiple vitamins 11/28/20 Patient breathing is stable, his oxygen saturation is 3-6 L/m to keep oxygen saturation low 90s and high 80s. we discussed the case with pulmonary team and they prefer to keep the patient bowel as his stable for discharge Chest x-ray showing persistent bilateral pulmonary infiltrate. WBC is down 13.2 K. Echocardiogram showing ejection fraction of 60-65% He remains on Eliquis for bilateral PE. On multiple vitamins C, D and zinc oxide for his Covid infection, and Baricitinib Subjective: 12/02/20 Patient this morning he was sitting in bed, not significantly dyspneic or tachypneic, he was asking eagerly to be discharged home today. Was on 3 L/m of oxygen via nasal cannula. However during the day his oxygen requirement worsened up to 10 L/m. He is afebrile. Labs including CBC and BMP were unremarkable. Liver enzymes looks stable. Remains on a prednisone 40 mg, multiple vitamins including vitamin C, D and zinc Also he is on Eliquis 5 mg twice a day for his bilateral PE.nd Baricitinib Pulmonary team on the case 12/03/2020 Patient is still dyspneic, he was able to appropriately this morning, his oxygen requirement worsened yesterday up to 10 L/m. Today he has tube placed on high flow nasal cannula/airvo with FiO2 of 92% at 60 L/m Repeat chest x-ray showing bilateral infiltrates He is on prednisone 40 mg, also he is on Eliquis, vitamin C, vitamin D and zinc.and Baricitinib. He got 1 dose of Lasix today per pulmonary team I discussed the case with pulmonary team today I discussed the case with the patient and over his phone and all their questions were answered. 12/04/2020 Patient still somewhat tachypneic and dyspneic similar her close to yesterday however his oxygen requirement increased and currently he is on Airvo 55 L/m with FiO2 of 75% saturating in the low 90s. History see is 11.2 K. Pro-calcitonin came back normal yesterday at 0.04. No need for IV antibiotic He continue on Eliquis, prednisone 40 mg, multiple vitamins and Baricitinib Objective - Vital Signs Vital signs: Vital Signs Temp 98.2 F 12/04/20 10:00 Pulse 94 12/04/20 10:00 Resp 19 12/04/20 10:00 BP 100/67 12/04/20 10:00 Pulse Ox 90 L 12/04/20 10:00 Intake & Output 12/03/20 12/04/20 12/04/20 18:59 06:59 18:59 Output Total 1003 Balance -1003 Output: Urine 1003 Other: Voiding Method Toilet # Voids 3 - Exam GENERAL: The patient is alert and oriented x3, not in any acute distress. Well developed, well nourished. HEENT: Pupils are round and equally reacting to light. EOMI. No scleral icterus. No conjunctival pallor. Normocephalic, atraumatic. No pharyngeal erythema. No thyromegaly. CARDIOVASCULAR: S1 and S2 present. No murmurs, rubs, or gallops. PULMONARY: Chest is clear to auscultation, no wheezing or crackles. ABDOMEN: Soft, nontender, nondistended, normoactive bowel sounds. No palpable organomegaly. MUSCULOSKELETAL: No joint swelling or deformity. EXTREMITIES: No cyanosis, clubbing, or pedal edema. NEUROLOGICAL: Gross neurological examination did not reveal any focal deficits. SKIN: No rashes. No petechiae - Labs CBC & Chem 7: 12/04/20 06:57 12/04/20 06:57 Labs: Abnormal Lab Results - Last 24 Hours (Table) 12/03/20 12/03/20 12/03/20 Range/Units 11:46 16:42 20:52 WBC (3.8-10.6) k/uL RBC (4.30-5.90) m/uL Hgb (13.0-17.5) gm/dL Hct (39.0-53.0) % Neutrophils # (1.3-7.7) k/uL BUN (9-20) mg/dL POC Glucose (mg/dL) 107 H 119 H 118 H (75-99) mg/dL ALT (4-49) U/L Total Protein (6.3-8.2) g/dL Albumin (3.5-5.0) g/dL 12/04/20 12/04/20 Range/Units 06:57 06:57 WBC 11.2 H (3.8-10.6) k/uL RBC 3.88 L (4.30-5.90) m/uL Hgb 11.8 L (13.0-17.5) gm/dL Hct 35.4 L (39.0-53.0) % Neutrophils # 9.5 H (1.3-7.7) k/uL BUN 33 H (9-20) mg/dL POC Glucose (mg/dL) (75-99) mg/dL ALT 89 H (4-49) U/L Total Protein 6.1 L (6.3-8.2) g/dL Albumin 3.1 L (3.5-5.0) g/dL Assessment and Plan Assessment: Acute COVID-19 pneumonia Acute hypoxic respiratory failure secondary to COVID-19 pneumonia Bilateral small pulmonary emboli in lower lobes Elevated inflammatory markers Plan: This is a pleasant 65 years old male who presents with bilateral PE on to Covid infection Continue with Eliquis Continue with steroids per pulmonary recommendation, currently on prednisone 40 mg and multiple vitamins, vitamin C, D and zinc oxide. Also baricitinib Labs and medication were reviewed.. Continue same treatment. Continue with symptomatic treatment. Resume home medication. Monitor lytes and vitals. DVT and GI prophylaxis. Further recommendations depends on the clinical course of the patient DVT prophylaxis: Eliquis GI Prophylaxis: Ppi Prognosis is guarded
[2020-12-04 12:08] LABS: Glucose,Whole Blood 101 mg/dL (75-99)
--- NOTE | 2020-12-04 12:55 | P.PN ---
Subjective Progress Note Date: 12/04/20 Principal diagnosis: COVID-19 pneumonia On 12/02/2020 patient seen in follow-up on medical surgical floor, this morning and attempt was made to wean down his oxygen from 10 L to 7 L however patient Desaturating into the high 70s low 80s, and he is currently on 7 L of oxygen his pulse ox of 79%. Does not appear to be in any acute respiratory distress, however his oxygen flow had to be increased again to 10-15 L in view of his persistent hypoxemia, patient denied any fever or chills, however she feels extremely frustrated because she was hoping to be able to go home today. On 10 L of oxygen his pulse ox is 90%. With any exertion patient desaturates and takes a while to recover. His chest x-ray today shows patchy density at the lung bases no evident pneumothorax. Patient continues on oral prednisone 40 mg daily, he is on Eliquis 5 mg twice daily, and Baricitinib. Today's labs have been reviewed, we will blood cell count is 12.8, hemoglobin is 10.5, sodium is 139, potassium is 3.8, chloride is 108, CO2 27, B1 is 35 creatinine 0.97. Patient was retested for COVID-19 and was again positive. His was asking to be able to visit her however in view of the current policy patient is still positive for COVID-19. On 12/03/2020 patient seen in follow-up on medical surgical floor. He remains on high flow oxygen, and on 10 L per high flow oxygen his pulse ox is daily 88%, patient desaturates to 79% with any movement even repositioning in bed, his O2 flow has been increased to 15 L, and patient is still saturating around 85-87% and she will be placed on Airvo to maintaining his O2 saturations between 80- 90%. He remains on Eliquis 5 mg twice a day, he remains on prednisone [address] chest did show small peripheral pulmonary emboli. Today's chest x-ray shows bilateral patchy airspace disease at the lung bases peripherally, no evident pneumothorax or pleural effusions. He is maintaned on Baricitinib, he is on multivitamins, he is on prednisone. His labs have been reviewed, his white blood cell count is 10.4, hemoglobin is 10.2, electrolytes are within normal limits, B1 is 30 creatinine 0.83. Lung sounds are positive for coarse crackles at lower and mid lung zones. Pro-calcitonin level has been sent and pending, cultures are negative thus far. On today's evaluation on 12/04/2020 patient seen in follow-up on medical s urgical floor, he remains on Airvo at 55 L, and FiO2 has been dropped down to 65 percent, from a 75% on yesterday's exam, and patient is maintaining O2 saturations at 89-90%, afebrile overnight, blood pressure is 100/67, he is awake and alert, oriented 3, extremely pleasant and cooperative, he is working on incentive spirometer, he is motivated to do so, and he is achieving 1.5 L on the today. He has been self repositioning in bed. He has been get not to the bedside commode with assistance and close supervision, he does desaturate with any activity however he recovers. He doesn't have much of a cough left, only occasional cough, without phlegm production, no hemoptysis, no complaints of chest discomfort, lung sounds revealed still coarse his story crackles over left lower lobe. Today's chest x-ray shows bilateral patchy airspace disease especially at the lung bases peripherally. Patient continues on Baricitinib, prednisone, Eliquis 5 mg daily. Today's lab 7 reviewed, his white blood cell count is 11.8, hemoglobin is 9.6, platelet count is 295, sodium is 140, potassium is 4.2, chloride is 108, BUN is 30, creatinine 0.96, AST is 78, ALT 62, his last LDH from 11/28/2020 was improving and was down to 952, with CRP down to 4.1. appetite is fair, no nausea, vomiting or diarrhea. Objective - Vital Signs Vital signs: Vital Signs Temp 98.2 F 12/04/20 10:00 Pulse 94 12/04/20 10:00 Resp 19 12/04/20 10:00 BP 100/67 12/04/20 10:00 Pulse Ox 98 12/04/20 11:58 Intake & Output 12/03/20 12/04/20 12/04/20 18:59 06:59 18:59 Output Total 1003 Balance -1003 Output: Urine 1003 Other: Voiding Method Toilet Bedside Commode Urinal # Voids 3 - Exam GENERAL EXAM: Alert, very pleasant, 65-year-old white male, on Airvo at 55 L and FiO2 of 65% with a pulse ox between 89-90% comfortable in no apparent distress. HEAD: Normocephalic/atraumatic. EYES: Normal reaction of pupils, equal size. Conjunctiva pink, sclera white. NOSE: Clear with pink turbinates. THROAT: No erythema or exudates. NECK: No masses, no JVD, no thyroid enlargement, no adenopathy. CHEST: No chest wall deformity. Symmetrical expansion. LUNGS: Equal air entry with diffuse crackles, over left lower lobe CVS: Regular rate and rhythm, normal S1 and S2, no gallops, no murmurs, no rubs ABDOMEN: Soft, nontender. No hepatosplenomegaly, normal bowel sounds, no guarding or rigidity. EXTREMITIES: No clubbing, no edema, no cyanosis, 2+ pulses and upper and lower extremities. MUSCULOSKELETAL: Muscle strength and tone normal. SPINE: No scoliosis or deformity SKIN: No rashes CENTRAL NERVOUS SYSTEM: Alert and oriented -3. No focal deficits, tone is normal in all 4 extremities. PSYCHIATRIC: Alert and oriented -3. Appropriate affect. Intact judgment and insight. - Labs CBC & Chem 7: 12/04/20 06:57 12/04/20 06:57 Labs: Abnormal Lab Results - Last 24 Hours (Table) 12/03/20 12/03/20 12/04/20 Range/Units 16:42 20:52 06:57 WBC 11.2 H (3.8-10.6) k/uL RBC 3.88 L (4.30-5.90) m/uL Hgb 11.8 L (13.0-17.5) gm/dL Hct 35.4 L (39.0-53.0) % Neutrophils # 9.5 H (1.3-7.7) k/uL BUN (9-20) mg/dL POC Glucose (mg/dL) 119 H 118 H (75-99) mg/dL ALT (4-49) U/L Total Protein (6.3-8.2) g/dL Albumin (3.5-5.0) g/dL 12/04/20 12/04/20 Range/Units 06:57 12:01 WBC (3.8-10.6) k/uL RBC (4.30-5.90) m/uL Hgb (13.0-17.5) gm/dL Hct (39.0-53.0) % Neutrophils # (1.3-7.7) k/uL BUN 33 H (9-20) mg/dL POC Glucose (mg/dL) 101 H (75-99) mg/dL ALT 89 H (4-49) U/L Total Protein 6.1 L (6.3-8.2) g/dL Albumin 3.1 L (3.5-5.0) g/dL Assessment and Plan Plan: Assessment: #1. Acute COVID-19 related pneumonia, with onset of symptoms of 11/09/2020, diagnosed on 11/16/2020, hospitalized and treated with a combination of Decadron and Remdesivir, to be readmitted back to the hospital related to worsening shortness of breath and hypoxia. Currently on Prednisone, Baricitnib and Eliquis remains on high flow oxygen today on 12/02/2020. Patient was not vaccinated for COVID-19. Patient's hypoxia has been progressive in the last 48 hours, and patient will be placed on Airvo today is 60 L and FiO2 of 92% to maintain O2 saturations at 89-90% #2. Bilateral pulmonary emboli, with CTA chest completed on 11/25/2020 showing small peripheral pulmonary emboli and bilateral lower lobes, no RV strain. Patient has been started on Eliquis 5 mg twice a day #3. Acute hypoxic respiratory failure secondary to the above, currently on Airvo at 55l/Fio2 of 65% #4. Elevated inflammatory markers including LDH and a d-dimer and CRP related to a viral pneumonia #5. Shortness of breath related to the above Plan: Airvo at 55 l/min and Fio2 of 65% Continue weaning FiO2 to keep O2 sat saturation between 88-90% Continue prednisone Continue oral anticoagulation, Baricitinib Follow-up chest x-ray in the morning Encourage the patient to reposition self in bed, prone in bed, deep breathing Procalcitonin level has been sent and is negative Patient received a dose of IV Lasix yesterday He is in negative liter over the last 24 hours, oxygenation seems to have improved and we were able to cut down the FiO2 down to 65% from 90% Follow-up chest x-ray in the morning, We'll continue to follow I performed a history & physical examination of the patient and discussed their management with my nurse practitioner, Kavita Chris. I reviewed the nurse practitioner's note and agree with the documented findings and plan of care. Lung sounds are positive for diminished breath sounds with crackles throughout the lung murphy. The findings and the impression was discussed with the patient. I attest to the documentation by the nurse practitioner. Time with Patient: Less than 30
[2020-12-04] MEDS: SODIUM CHLORIDE 0.9% 1,000 ML IV SCH (17:04)
[2020-12-04 17:11] LABS: Glucose,Whole Blood 124 mg/dL (75-99)
[2020-12-04 20:05] LABS: Glucose,Whole Blood 126 mg/dL (75-99)
[2020-12-05 07:21] LABS: Glucose,Whole Blood 96 mg/dL (75-99)
[2020-12-05] MEDS: INSULIN ASPART (NovoLOG) 100 UNIT/ML VIAL SQ SCH ×4 (07:51→21:03)
[2020-12-05] MEDS: ASCORBIC ACID 500 MG TAB PO SCH ×2 (08:12→08:13)
[2020-12-05] MEDS: ZINC SULFATE 220 MG CAP PO SCH (08:13)
[2020-12-05] MEDS: APIXABAN 5 MG TAB PO SCH ×2 (08:13→21:04)
[2020-12-05] MEDS: BARICITINIB 2 MG TABLET PO SCH (08:13)
[2020-12-05] MEDS: CHOLECALCIFEROL 25 MCG (1000 IU) TABLET PO SCH (08:13)
[2020-12-05] MEDS: PANTOPRAZOLE 40 MG TABLET PO SCH ×2 (08:14→17:46)
[2020-12-05] MEDS: predniSONE 20 MG TAB PO SCH (08:14)
[2020-12-05] MEDS: ALBUTEROL HFA INHALER INHALATION SCH ×4 (08:15→21:37)
[2020-12-05 08:18] LABS: Basophils % (A) 0 %; Eosinophils # (A) 0.1 k/uL (0-0.7); Eosinophils % (A) 1 %; HCT 35.9 % (39.0-53.0); HGB 11.7 gm/dL (13.0-17.5); Lymphocytes % (A) 8 %; MCH 29.9 pg (25.0-35.0); MCHC 32.7 g/dL (31.0-37.0); MCV 91.7 fL (80.0-100.0); Mean Platelet Volume 7.8; Monocytes # (A) 0.6 k/uL (0-1.0); Monocytes % (A) 5 %; Neutrophils # (A) 10.9 k/uL (1.3-7.7); Neutrophils % (A) 85 %; Platelet Count 278 k/uL (150-450); RBC 3.91 m/uL (4.30-5.90); RDW 14.1 % (11.5-15.5); WBC 12.9 k/uL (3.8-10.6)
[2020-12-05 09:11] LABS: C Reactive Protein 1.9 mg/dL (<1.0)
--- NOTE | 2020-12-05 09:22 | XR ---
EXAMINATION TYPE: XR chest 1V portable DATE OF EXAM: 12/05/2020 COMPARISON: 12/03/2020 HISTORY: Cough TECHNIQUE: Single frontal view of the chest is obtained. FINDINGS: Coarsened interstitial pattern with basilar infiltrates. Hyperinflation suggests COPD. Hea rt size normal. Chronic deformity of the left clavicle. Arthropathy of the shoulders. No pneumothorax . Heart size normal. IMPRESSION: 1. COPD correlate for basilar infiltrates.
[2020-12-05 09:30] LABS: ALT 93 U/L (4-49); AST 48 U/L (17-59); African American GFR (CKD) >90 (>60 ml/min/1.73 sqM); Albumin 3.2 g/dL (3.5-5.0); Alkaline Phosphatase 88 U/L (38-126); Anion Gap 8 mmol/L; Blood Urea Nitrogen 33 mg/dL (9-20); Calcium 8.7 mg/dL (8.4-10.2); Carbon Dioxide 28 mmol/L (22-30); Chloride 100 mmol/L (98-107); Globulin 3.1 g/dL; Glucose 91 mg/dL (74-99); LDH 952 U/L (313-618); Non-African American GFR(CKD) 81 (>60 ml/min/1.73 sqM); Potassium 3.6 mmol/L (3.5-5.1); Sodium 136 mmol/L (137-145); Total Bilirubin 1.1 mg/dL (0.2-1.3); Total Protein 6.3 g/dL (6.3-8.2)
[2020-12-05 11:30] LABS: Glucose,Whole Blood 117 mg/dL (75-99)
--- NOTE | 2020-12-05 12:29 | P.PN ---
Subjective Progress Note Date: 12/05/20 Principal diagnosis: COVID-19 pneumonia On 12/02/2020 patient seen in follow-up on medical surgical floor, this morning and attempt was made to wean down his oxygen from 10 L to 7 L however patient Desaturating into the high 70s low 80s, and he is currently on 7 L of oxygen his pulse ox of 79%. Does not appear to be in any acute respiratory distress, however his oxygen flow had to be increased again to 10-15 L in view of his persistent hypoxemia, patient denied any fever or chills, however she feels extremely frustrated because she was hoping to be able to go home today. On 10 L of oxygen his pulse ox is 90%. With any exertion patient desaturates and takes a while to recover. His chest x-ray today shows patchy density at the lung bases no evident pneumothorax. Patient continues on oral prednisone 40 mg daily, he is on Eliquis 5 mg twice daily, and Baricitinib. Today's labs have been reviewed, we will blood cell count is 12.8, hemoglobin is 10.5, sodium is 139, potassium is 3.8, chloride is 108, CO2 27, B1 is 35 creatinine 0.97. Patient was retested for COVID-19 and was again positive. His was asking to be able to visit her however in view of the current policy patient is still positive for COVID-19. On 12/03/2020 patient seen in follow-up on medical surgical floor. He remains on high flow oxygen, and on 10 L per high flow oxygen his pulse ox is daily 88%, patient desaturates to 79% with any movement even repositioning in bed, his O2 flow has been increased to 15 L, and patient is still saturating around 85-87% and she will be placed on Airvo to maintaining his O2 saturations between 80- 90%. He remains on Eliquis 5 mg twice a day, he remains on prednisone [address] chest did show small peripheral pulmonary emboli. Today's chest x-ray shows bilateral patchy airspace disease at the lung bases peripherally, no evident pneumothorax or pleural effusions. He is maintaned on Baricitinib, he is on multivitamins, he is on prednisone. His labs have been reviewed, his white blood cell count is 10.4, hemoglobin is 10.2, electrolytes are within normal limits, B1 is 30 creatinine 0.83. Lung sounds are positive for coarse crackles at lower and mid lung zones. Pro-calcitonin level has been sent and pending, cultures are negative thus far. On today's evaluation on 12/04/2020 patient seen in follow-up on medical s urgical floor, he remains on Airvo at 55 L, and FiO2 has been dropped down to 65 percent, from a 75% on yesterday's exam, and patient is maintaining O2 saturations at 89-90%, afebrile overnight, blood pressure is 100/67, he is awake and alert, oriented 3, extremely pleasant and cooperative, he is working on incentive spirometer, he is motivated to do so, and he is achieving 1.5 L on the today. He has been self repositioning in bed. He has been get not to the bedside commode with assistance and close supervision, he does desaturate with any activity however he recovers. He doesn't have much of a cough left, only occasional cough, without phlegm production, no hemoptysis, no complaints of chest discomfort, lung sounds revealed still coarse his story crackles over left lower lobe. Today's chest x-ray shows bilateral patchy airspace disease especially at the lung bases peripherally. Patient continues on Baricitinib, prednisone, Eliquis 5 mg daily. Today's lab 7 reviewed, his white blood cell count is 11.8, hemoglobin is 9.6, platelet count is 295, sodium is 140, potassium is 4.2, chloride is 108, BUN is 30, creatinine 0.96, AST is 78, ALT 62, his last LDH from 11/28/2020 was improving and was down to 952, with CRP down to 4.1. appetite is fair, no nausea, vomiting or diarrhea. On 12/05/2020 patient seen in follow-up on medical surgical floor. He sitting up in the recliner, in no acute distress, he remains on Airvo currently at 55 L, and FiO2 of 55%, and his pulse ox is 97-100%, afebrile, hemodynamically his been stable. His oxygenation is excellent on those settings, and his FiO2 can be further weaned, and possibly switch to high flow nasal cannula today. No compl aints of chest discomfort, no fever or chills overnight. Today's chest x-ray shows COPD with basilar infiltrates. Today's labs have been reviewed showing orbital, 12.9, hemoglobin of 11.7, electrolytes within normal limits, BUN is 33 creatinine 0.98. AST is 48, ALT is 93, alkaline phosphatase is 88, LDH is 952, and CRP is 1.9. Pro-calcitonin level was 0.04, blood cultures have shown no growth. Patient continues on Eliquis, Baricitinib, and oral prednisone. Objective - Vital Signs Vital signs: Vital Signs Temp 97.6 F 12/05/20 10:41 Pulse 83 12/05/20 10:41 Resp 18 12/05/20 10:41 BP 104/70 12/05/20 10:41 Pulse Ox 100 12/05/20 10:41 Intake & Output 12/04/20 12/05/20 12/05/20 18:59 06:59 18:59 Other: Voiding Method Bedside Commode Bedside Commode Urinal Urinal # Voids 2 # Bowel Movements 1 1 - Exam GENERAL EXAM: Alert, very pleasant, 65-year-old white male, on Airvo at 55 L and FiO2 of 55% with a pulse ox between 100% comfortable in no apparent distress. HEAD: Normocephalic/atraumatic. EYES: Normal reaction of pupils, equal size. Conjunctiva pink, sclera white. NOSE: Clear with pink turbinates. THROAT: No erythema or exudates. NECK: No masses, no JVD, no thyroid enlargement, no adenopathy. CHEST: No chest wall deformity. Symmetrical expansion. LUNGS: Equal air entry with diffuse crackles, over left lower lobe CVS: Regular rate and rhythm, normal S1 and S2, no gallops, no murmurs, no rubs ABDOMEN: Soft, nontender. No hepatosplenomegaly, normal bowel sounds, no guarding or rigidity. EXTREMITIES: No clubbing, no edema, no cyanosis, 2+ pulses and upper and lower extremities. MUSCULOSKELETAL: Muscle strength and tone normal. SPINE: No scoliosis or deformity SKIN: No rashes CENTRAL NERVOUS SYSTEM: Alert and oriented -3. No focal deficits, tone is normal in all 4 extremities. PSYCHIATRIC: Alert and oriented -3. Appropriate affect. Intact judgment and insight. - Labs CBC & Chem 7: 12/05/20 07:58 12/05/20 07:58 Labs: Abnormal Lab Results - Last 24 Hours (Table) 12/04/20 12/04/20 12/05/20 Range/Units 17:03 20:01 07:58 WBC 12.9 H (3.8-10.6) k/uL RBC 3.91 L (4.30-5.90) m/uL Hgb 11.7 L (13.0-17.5) gm/dL Hct 35.9 L (39.0-53.0) % Neutrophils # 10.9 H (1.3-7.7) k/uL Sodium (137-145) mmol/L BUN (9-20) mg/dL POC Glucose (mg/dL) 124 H 126 H (75-99) mg/dL ALT (4-49) U/L Lactate Dehydrogenase (313-618) U/L C-Reactive Protein (<1.0) mg/dL Albumin (3.5-5.0) g/dL 12/05/20 12/05/20 Range/Units 07:58 11:29 WBC (3.8-10.6) k/uL RBC (4.30-5.90) m/uL Hgb (13.0-17.5) gm/dL Hct (39.0-53.0) % Neutrophils # (1.3-7.7) k/uL Sodium 136 L (137-145) mmol/L BUN 33 H (9-20) mg/dL POC Glucose (mg/dL) 117 H (75-99) mg/dL ALT 93 H (4-49) U/L Lactate Dehydrogenase 952 H (313-618) U/L C-Reactive Protein 1.9 H (<1.0) mg/dL Albumin 3.2 L (3.5-5.0) g/dL Assessment and Plan Plan: Assessment: #1. Acute COVID-19 related pneumonia, with onset of symptoms of 11/09/2020, diagnosed on 11/16/2020, hospitalized and treated with a combination of Decadron and Remdesivir, to be readmitted back to the hospital related to worsening shortness of breath and hypoxia. Currently on Prednisone, Baricitnib and Eliquis remains on high flow oxygen today on 12/02/2020. Patient was not vaccinated for COVID-19. Currently on Airvo, at 55 L and FiO2 of 55% #2. Bilateral pulmonary emboli, with CTA chest completed on 11/25/2020 showing small peripheral pulmonary emboli and bilateral lower lobes, no RV strain. Patient has been started on Eliquis 5 mg twice a day #3. Acute hypoxic respiratory failure secondary to the above, currently on Airvo at 55l/Fio2 of 65% #4. Elevated inflammatory markers including LDH and a d-dimer and CRP related to a viral pneumonia #5. Shortness of breath related to the above Plan: Clinically patient has been stable, hypoxia has improved, FiO2 is down to 55% Continue weaning FiO2 to maintain O2 saturations between 89-90% Patient probably can be switched to regular high flow nasal cannula may be the next 24 hours Continue prednisone Continue oral anticoagulation, Baricitinib Encourage the patient to reposition self in bed, prone in bed, deep breathing Inflammatory markers are improved since admission Once oxygen requirements are down to 5 L of oxygen with less patient will be considered for discharge home We'll continue to follow I performed a history & physical examination of the patient and discussed their management with my nurse practitioner, Kavita Chris. I reviewed the nurse practitioner's note and agree with the documented findings and plan of care. Lung sounds are positive for diminished breath sounds with crackles throughout the lung murphy. The findings and the impression was discussed with the patient. I attest to the documentation by the nurse practitioner. Time with Patient: Less than 30
[2020-12-05 17:03] LABS: Glucose,Whole Blood 118 mg/dL (75-99)
[2020-12-05] MEDS: SODIUM CHLORIDE 0.9% 1,000 ML IV SCH (17:14)
--- NOTE | 2020-12-05 18:28 | P.PN ---
Subjective Date of service for this note is on 11/28/20 Mr. Hoyos is a 65-year-old male with a past medical history of COVID-19 pneumonia diagnosed on 11/16/2020 coming into the hospital with a chief complaint of difficulty in breathing. Patient was recently discharged from the hospital 3 days after being treated for COVID-19 pneumonia. He is not vaccinated and he does not have significant past medical history. During that hospital admission patient received remdesivir and Decadron he was discharged home on steroids for 4 more days. Patient states that since being discharged he felt okay for a day or so but later on started to have worsening shortness of breath. Patient denied having any fever chills or rigors. He denied having any chest pain or palpitations. He denied having any swelling of his lower extremities. He complained of exertional dyspnea. In the ER at the time of admission patient's vital signs temperature of 98.2, heart rates 100, blood pressure 122/66, saturating at 88% on 6 L of nasal cannula. He had a chest x-ray showing bilateral pneumonia EKG showing normal sinus rhythm with heart rate around 96 bpm. Patient also had CT angio of the chest showing small peripheral bilateral pulmonary emboli in the lower lobes w ith no RV strain. And bilateral multifocal groundglass opacities that correlate to his Covid pneumonia. On reviewing his labs white count of 12.2, hemoglobin 10.7, platelets 275. Sodium 136, potassium 4.2, chloride 104, bicarb 25, BUN 33, creatinine 0.91. Lactic acid two-point 1 repeat is 1.6 LDH of 1359, CRP of 18.2, albumin of 2.8. D-dimer more than 34. Patient was started on heparin drip and admitted for further management. 11/26/2020 Patient this morning was sitting in bed comfortable, he was on BiPAP machine stating that his breathing is slightly better compared to yesterday. He was saturating 88% on 6 L of oxygen via nasal cannula vitals are stable. WBC is down 10.7 K. BMP is unremarkable Echocardiogram showing ejection fraction of 60-65% He remains on IV heparin for bilateral PE. On multiple vitamins C, D and zinc oxide for his Covid infection 11/27/2020 Patients with bilateral Covid pneumonia with mild dyspnea. He is saturating 91% on 6 L oxygen via nasal cannula slightly better than yesterday. His Procalcitonin is a slightly elevated at 0.2 to however he does not need antibacterial antibiotics No labs from today, was placed on insulin sliding scale He continued on Solu-Medrol 60 mg and Baricitinib . His anticoagulation is wished to Eliquis 5 mg twice a day. He remains on multiple vitamins 11/28/20 Patient breathing is stable, his oxygen saturation is 3-6 L/m to keep oxygen saturation low 90s and high 80s. we discussed the case with pulmonary team and they prefer to keep the patient bowel as his stable for discharge Chest x-ray showing persistent bilateral pulmonary infiltrate. WBC is down 13.2 K. Echocardiogram showing ejection fraction of 60-65% He remains on Eliquis for bilateral PE. On multiple vitamins C, D and zinc oxide for his Covid infection, and Baricitinib Subjective: 12/02/20 Patient this morning he was sitting in bed, not significantly dyspneic or tachypneic, he was asking eagerly to be discharged home today. Was on 3 L/m of oxygen via nasal cannula. However during the day his oxygen requirement worsened up to 10 L/m. He is afebrile. Labs including CBC and BMP were unremarkable. Liver enzymes looks stable. Remains on a prednisone 40 mg, multiple vitamins including vitamin C, D and zinc Also he is on Eliquis 5 mg twice a day for his bilateral PE.nd Baricitinib Pulmonary team on the case 12/03/2020 Patient is still dyspneic, he was able to appropriately this morning, his oxygen requirement worsened yesterday up to 10 L/m. Today he has tube placed on high flow nasal cannula/airvo with FiO2 of 92% at 60 L/m Repeat chest x-ray showing bilateral infiltrates He is on prednisone 40 mg, also he is on Eliquis, vitamin C, vitamin D and zinc.and Baricitinib. He got 1 dose of Lasix today per pulmonary team I discussed the case with pulmonary team today I discussed the case with the patient and over his phone and all their questions were answered. 12/04/2020 Patient still somewhat tachypneic and dyspneic similar her close to yesterday however his oxygen requirement increased and currently he is on Airvo 55 L/m with FiO2 of 75% saturating in the low 90s. History see is 11.2 K. Pro-calcitonin came back normal yesterday at 0.04. No need for IV antibiotic He continue on Eliquis, prednisone 40 mg, multiple vitamins and Baricitinib 12/05/2020 Patient is sitting up in bed with mild tachypnea, token freely. However is still on Airvo 55 L/m with FiO2 of 55% , which is slightly better than yesterday Vitals and labs are stable. LDH is trending down 952, C-reactive protein 1.9. He has mild leukocytosis but he is on a prednisone 40 mg Also he is on Eliquis, multiple vitamins and Baricitinib Objective - Vital Signs Vital signs: Vital Signs Temp 97.8 F 12/05/20 14:37 Pulse 91 12/05/20 14:37 Resp 24 12/05/20 14:37 BP 100/64 12/05/20 14:37 Pulse Ox 96 12/05/20 14:37 Intake & Output 12/04/20 12/05/20 12/05/20 18:59 06:59 18:59 Other: Voiding Method Bedside Commode Bedside Commode Urinal Urinal # Voids 2 # Bowel Movements 1 1 - Exam GENERAL: The patient is alert and oriented x3, not in any acute distress. Well developed, well nourished. HEENT: Pupils are round and equally reacting to light. EOMI. No scleral icterus. No conjunctival pallor. Normocephalic, atraumatic. No pharyngeal erythema. No thyromegaly. CARDIOVASCULAR: S1 and S2 present. No murmurs, rubs, or gallops. PULMONARY: Chest is clear to auscultation, no wheezing or crackles. ABDOMEN: Soft, nontender, nondistended, normoactive bowel sounds. No palpable organomegaly. MUSCULOSKELETAL: No joint swelling or deformity. EXTREMITIES: No cyanosis, clubbing, or pedal edema. NEUROLOGICAL: Gross neurological examination did not reveal any focal deficits. SKIN: No rashes. No petechiae - Labs CBC & Chem 7: 12/05/20 07:58 12/05/20 07:58 Labs: Abnormal Lab Results - Last 24 Hours (Table) 12/04/20 12/04/20 12/05/20 Range/Units 17:03 20:01 07:58 WBC 12.9 H (3.8-10.6) k/uL RBC 3.91 L (4.30-5.90) m/uL Hgb 11.7 L (13.0-17.5) gm/dL Hct 35.9 L (39.0-53.0) % Neutrophils # 10.9 H (1.3-7.7) k/uL Sodium (137-145) mmol/L BUN (9-20) mg/dL POC Glucose (mg/dL) 124 H 126 H (75-99) mg/dL ALT (4-49) U/L Lactate Dehydrogenase (313-618) U/L C-Reactive Protein (<1.0) mg/dL Albumin (3.5-5.0) g/dL 12/05/20 12/05/20 Range/Units 07:58 11:29 WBC (3.8-10.6) k/uL RBC (4.30-5.90) m/uL Hgb (13.0-17.5) gm/dL Hct (39.0-53.0) % Neutrophils # (1.3-7.7) k/uL Sodium 136 L (137-145) mmol/L BUN 33 H (9-20) mg/dL POC Glucose (mg/dL) 117 H (75-99) mg/dL ALT 93 H (4-49) U/L Lactate Dehydrogenase 952 H (313-618) U/L C-Reactive Protein 1.9 H (<1.0) mg/dL Albumin 3.2 L (3.5-5.0) g/dL Assessment and Plan Assessment: Acute COVID-19 pneumonia Acute hypoxic respiratory failure secondary to COVID-19 pneumonia Bilateral small pulmonary emboli in lower lobes Elevated inflammatory markers Plan: This is a pleasant 65 years old male who presents with bilateral PE on to Covid infection Continue with Eliquis Continue with steroids per pulmonary recommendation, currently on prednisone 40 mg and multiple vitamins, vitamin C, D and zinc oxide. Also baricitinib Labs and medication were reviewed.. Continue same treatment. Continue with symptomatic treatment. Resume home medication. Monitor lytes and vitals. DVT and GI prophylaxis. Further recommendations depends on the clinical course of the patient DVT prophylaxis: Eliquis GI Prophylaxis: Ppi Prognosis is guarded
[2020-12-05 20:15] LABS: Glucose,Whole Blood 142 mg/dL (75-99)
[2020-12-06 06:58] LABS: Glucose,Whole Blood 92 mg/dL (75-99)
[2020-12-06] MEDS: INSULIN ASPART (NovoLOG) 100 UNIT/ML VIAL SQ SCH ×4 (07:21→21:08)
[2020-12-06] MEDS: APIXABAN 5 MG TAB PO SCH ×2 (08:12→21:04)
[2020-12-06] MEDS: ASCORBIC ACID 500 MG TAB PO SCH (08:12)
[2020-12-06] MEDS: predniSONE 20 MG TAB PO SCH (08:12)
[2020-12-06] MEDS: ZINC SULFATE 220 MG CAP PO SCH (08:12)
[2020-12-06] MEDS: PANTOPRAZOLE 40 MG TABLET PO SCH ×2 (08:12→17:25)
[2020-12-06] MEDS: BARICITINIB 2 MG TABLET PO SCH (08:12)
[2020-12-06] MEDS: CHOLECALCIFEROL 25 MCG (1000 IU) TABLET PO SCH (08:12)
[2020-12-06] MEDS: ALBUTEROL HFA INHALER INHALATION SCH ×4 (09:42→22:19)
[2020-12-06 11:46] LABS: Glucose,Whole Blood 112 mg/dL (75-99)
--- NOTE | 2020-12-06 13:14 | P.PN ---
Subjective Progress Note Date: 12/06/20 Principal diagnosis: COVID-19 pneumonia On 12/02/2020 patient seen in follow-up on medical surgical floor, this morning and attempt was made to wean down his oxygen from 10 L to 7 L however patient Desaturating into the high 70s low 80s, and he is currently on 7 L of oxygen his pulse ox of 79%. Does not appear to be in any acute respiratory distress, however his oxygen flow had to be increased again to 10-15 L in view of his persistent hypoxemia, patient denied any fever or chills, however she feels extremely frustrated because she was hoping to be able to go home today. On 10 L of oxygen his pulse ox is 90%. With any exertion patient desaturates and takes a while to recover. His chest x-ray today shows patchy density at the lung bases no evident pneumothorax. Patient continues on oral prednisone 40 mg daily, he is on Eliquis 5 mg twice daily, and Baricitinib. Today's labs have been reviewed, we will blood cell count is 12.8, hemoglobin is 10.5, sodium is 139, potassium is 3.8, chloride is 108, CO2 27, B1 is 35 creatinine 0.97. Patient was retested for COVID-19 and was again positive. His was asking to be able to visit her however in view of the current policy patient is still positive for COVID-19. On 12/03/2020 patient seen in follow-up on medical surgical floor. He remains on high flow oxygen, and on 10 L per high flow oxygen his pulse ox is daily 88%, patient desaturates to 79% with any movement even repositioning in bed, his O2 flow has been increased to 15 L, and patient is still saturating around 85-87% and she will be placed on Airvo to maintaining his O2 saturations between 80- 90%. He remains on Eliquis 5 mg twice a day, he remains on prednisone [address] chest did show small peripheral pulmonary emboli. Today's chest x-ray shows bilateral patchy airspace disease at the lung bases peripherally, no evident pneumothorax or pleural effusions. He is maintaned on Baricitinib, he is on multivitamins, he is on prednisone. His labs have been reviewed, his white blood cell count is 10.4, hemoglobin is 10.2, electrolytes are within normal limits, B1 is 30 creatinine 0.83. Lung sounds are positive for coarse crackles at lower and mid lung zones. Pro-calcitonin level has been sent and pending, cultures are negative thus far. On today's evaluation on 12/04/2020 patient seen in follow-up on medical s urgical floor, he remains on Airvo at 55 L, and FiO2 has been dropped down to 65 percent, from a 75% on yesterday's exam, and patient is maintaining O2 saturations at 89-90%, afebrile overnight, blood pressure is 100/67, he is awake and alert, oriented 3, extremely pleasant and cooperative, he is working on incentive spirometer, he is motivated to do so, and he is achieving 1.5 L on the today. He has been self repositioning in bed. He has been get not to the bedside commode with assistance and close supervision, he does desaturate with any activity however he recovers. He doesn't have much of a cough left, only occasional cough, without phlegm production, no hemoptysis, no complaints of chest discomfort, lung sounds revealed still coarse his story crackles over left lower lobe. Today's chest x-ray shows bilateral patchy airspace disease especially at the lung bases peripherally. Patient continues on Baricitinib, prednisone, Eliquis 5 mg daily. Today's lab 7 reviewed, his white blood cell count is 11.8, hemoglobin is 9.6, platelet count is 295, sodium is 140, potassium is 4.2, chloride is 108, BUN is 30, creatinine 0.96, AST is 78, ALT 62, his last LDH from 11/28/2020 was improving and was down to 952, with CRP down to 4.1. appetite is fair, no nausea, vomiting or diarrhea. On 12/05/2020 patient seen in follow-up on medical surgical floor. He sitting up in the recliner, in no acute distress, he remains on Airvo currently at 55 L, and FiO2 of 55%, and his pulse ox is 97-100%, afebrile, hemodynamically his been stable. His oxygenation is excellent on those settings, and his FiO2 can be further weaned, and possibly switch to high flow nasal cannula today. No compl aints of chest discomfort, no fever or chills overnight. Today's chest x-ray shows COPD with basilar infiltrates. Today's labs have been reviewed showing orbital, 12.9, hemoglobin of 11.7, electrolytes within normal limits, BUN is 33 creatinine 0.98. AST is 48, ALT is 93, alkaline phosphatase is 88, LDH is 952, and CRP is 1.9. Pro-calcitonin level was 0.04, blood cultures have shown no growth. Patient continues on Eliquis, Baricitinib, and oral prednisone. On 12/06/2020 patient seen in follow-up on medical surgical floor. Remains on Airvo currently at 45 L and FiO2 45%, his pulse ox is 94-98%, yesterday according to the nursing staff patient was desaturating with exertion into the 70s and was taking a while to recover on Airvo, however his oxygenation seems to have improved, patient looks very comfortable on those above mentioned settings. He will be trialed on the regular high flow nasal cannula, his been afebrile overnight, vital signs have been stable. His last chest x-ray was yesterday on 12/05/2020 showing COPD with basilar infiltrates. Today's labs are still pending for today. Patient continues on Olumiant, oral prednisone, Eliquis 5 mg twice a day, and multivitamins Objective - Vital Signs Vital signs: Vital Signs Temp 98 F 12/06/20 09:38 Pulse 78 12/06/20 09:38 Resp 18 12/06/20 09:38 BP 104/64 12/06/20 09:38 Pulse Ox 97 12/06/20 12:31 Intake & Output 12/05/20 12/06/20 12/06/20 18:59 06:59 18:59 Intake Total 360 Output Total 660 Balance 360 -660 Intake: Oral 360 Output: Urine 660 Other: Voiding Method Urinal # Voids 3 4 # Bowel Movements 0 - Exam GENERAL EXAM: Alert, very pleasant, 65-year-old white male, on Airvo at 45 L and FiO2 of 45% with a pulse ox between 97% comfortable in no apparent distress. HEAD: Normocephalic/atraumatic. EYES: Normal reaction of pupils, equal size. Conjunctiva pink, sclera white. NOSE: Clear with pink turbinates. THROAT: No erythema or exudates. NECK: No masses, no JVD, no thyroid enlargement, no adenopathy. CHEST: No chest wall deformity. Symmetrical expansion. LUNGS: Equal air entry with diffuse crackles, over left lower lobe CVS: Regular rate and rhythm, normal S1 and S2, no gallops, no murmurs, no rubs ABDOMEN: Soft, nontender. No hepatosplenomegaly, normal bowel sounds, no guarding or rigidity. EXTREMITIES: No clubbing, no edema, no cyanosis, 2+ pulses and upper and lower extremities. MUSCULOSKELETAL: Muscle strength and tone normal. SPINE: No scoliosis or deformity SKIN: No rashes CENTRAL NERVOUS SYSTEM: Alert and oriented -3. No focal deficits, tone is normal in all 4 extremities. PSYCHIATRIC: Alert and oriented -3. Appropriate affect. Intact judgment and insight. - Labs CBC & Chem 7: 12/05/20 07:58 12/05/20 07:58 Labs: Abnormal Lab Results - Last 24 Hours (Table) 12/05/20 12/05/20 12/06/20 Range/Units 17:02 20:11 11:45 POC Glucose (mg/dL) 118 H 142 H 112 H (75-99) mg/dL Assessment and Plan Plan: Assessment: #1. Acute COVID-19 related pneumonia, with onset of symptoms of 11/09/2020, diagnosed on 11/16/2020, hospitalized and treated with a combination of Decadron and Remdesivir, to be readmitted back to the hospital related to worsening shortness of breath and hypoxia. Currently on Prednisone, Baricitnib and Eliquis remains on high flow oxygen today on 12/02/2020. Patient was not vaccinated for COVID-19. Currently on Airvo, at 55 L and FiO2 of 55% #2. Bilateral pulmonary emboli, with CTA chest completed on 11/25/2020 showing small peripheral pulmonary emboli and bilateral lower lobes, no RV strain. Patient has been started on Eliquis 5 mg twice a day #3. Acute hypoxic respiratory failure secondary to the above, currently on Airvo at 55l/Fio2 of 65% #4. Elevated inflammatory markers including LDH and a d-dimer and CRP related to a viral pneumonia #5. Shortness of breath related to the above Plan: Clinically patient has been stable, hypoxia has improved, FiO2 is down to 45% We'll try the patient on regular high flow nasal cannula Continue weaning FiO2 to maintain O2 saturation between 89-90% Continue oral anticoagulation, Baricitinib Once oxygen requirements are down to 5 L of oxygen with less patient will be considered for discharge home We'll continue to follow I performed a history & physical examination of the patient and discussed their management with my nurse practitioner, Kavita Chris. I reviewed the nurse andres ha's note and agree with the documented findings and plan of care. Lung sounds are positive for diminished breath sounds with crackles throughout the lung murphy. The findings and the impression was discussed with the patient. I attest to the documentation by the nurse practitioner. Time with Patient: Less than 30
--- NOTE | 2020-12-06 14:02 | P.PN ---
Subjective Date of service for this note is on 11/28/20 Mr. Hoyos is a 65-year-old male with a past medical history of COVID-19 pneumonia diagnosed on 11/16/2020 coming into the hospital with a chief complaint of difficulty in breathing. Patient was recently discharged from the hospital 3 days after being treated for COVID-19 pneumonia. He is not vaccinated and he does not have significant past medical history. During that hospital admission patient received remdesivir and Decadron he was discharged home on steroids for 4 more days. Patient states that since being discharged he felt okay for a day or so but later on started to have worsening shortness of breath. Patient denied having any fever chills or rigors. He denied having any chest pain or palpitations. He denied having any swelling of his lower extremities. He complained of exertional dyspnea. In the ER at the time of admission patient's vital signs temperature of 98.2, heart rates 100, blood pressure 122/66, saturating at 88% on 6 L of nasal cannula. He had a chest x-ray showing bilateral pneumonia EKG showing normal sinus rhythm with heart rate around [address] Patient also [address] angio of the chest showing small peripheral bilateral pulmonary emboli in the lower lobes w ith no RV strain. And bilateral multifocal groundglass opacities that correlate to his Covid pneumonia. On reviewing his labs white count of 12.2, hemoglobin 10.7, platelets 275. Sodium 136, potassium 4.2, chloride 104, bicarb 25, BUN 33, creatinine 0.91. Lactic acid two-point 1 repeat is 1.6 LDH of 1359, CRP of 18.2, albumin of 2.8. D-dimer more than 34. Patient was started on heparin drip and admitted for further management. 11/26/2020 Patient this morning was sitting in bed comfortable, he was on BiPAP machine stating that his breathing is slightly better compared to yesterday. He was saturating 88% on 6 L of oxygen via nasal cannula vitals are stable. WBC is down 10.7 K. BMP is unremarkable Echocardiogram showing ejection fraction of 60-65% He remains on IV heparin for bilateral PE. On multiple vitamins C, D and zinc oxide for his Covid infection 11/27/2020 Patients with bilateral Covid pneumonia with mild dyspnea. He is saturating 91% on 6 L oxygen via nasal cannula slightly better than yesterday. His Procalcitonin is a slightly elevated at 0.2 to however he does not need antibacterial antibiotics No labs from today, was placed on insulin sliding scale He continued on Solu-Medrol 60 mg and Baricitinib . His anticoagulation is wished to Eliquis 5 mg twice a day. He remains on multiple vitamins 11/28/20 Patient breathing is stable, his oxygen saturation is 3-6 L/m to keep oxygen saturation low 90s and high 80s. we discussed the case with pulmonary team and they prefer to keep the patient bowel as his stable for discharge Chest x-ray showing persistent bilateral pulmonary infiltrate. WBC is down 13.2 K. Echocardiogram showing ejection fraction of 60-65% He remains on Eliquis for bilateral PE. On multiple vitamins C, D and zinc oxide for his Covid infection, and Baricitinib Subjective: 12/02/20 Patient this morning he was sitting in bed, not significantly dyspneic or tachypneic, he was asking eagerly to be discharged home today. Was on 3 L/m of oxygen via nasal cannula. However during the day his oxygen requirement worsened up to 10 L/m. He is afebrile. Labs including CBC and BMP were unremarkable. Liver enzymes looks stable. Remains on a prednisone 40 mg, multiple vitamins including vitamin C, D and zinc Also he is on Eliquis 5 mg twice a day for his bilateral PE.nd Baricitinib Pulmonary team on the case 12/03/2020 Patient is still dyspneic, he was able to appropriately this morning, his oxygen requirement worsened yesterday up to 10 L/m. Today he has tube placed on high flow nasal cannula/airvo with FiO2 of 92% at 60 L/m Repeat chest x-ray showing bilateral infiltrates He is on prednisone 40 mg, also he is on Eliquis, vitamin C, vitamin D and zinc.and Baricitinib. He got 1 dose of Lasix today per pulmonary team I discussed the case with pulmonary team today I discussed the case with the patient and over his phone and all their questions were answered. 12/04/2020 Patient still somewhat tachypneic and dyspneic similar her close to yesterday however his oxygen requirement increased and currently he is on Airvo 55 L/m with FiO2 of 75% saturating in the low 90s. History see is 11.2 K. Pro-calcitonin came back normal yesterday at 0.04. No need for IV antibiotic He continue on Eliquis, prednisone 40 mg, multiple vitamins and Baricitinib 12/05/2020 Patient is sitting up in bed with mild tachypnea, token freely. However is still on Airvo 55 L/m with FiO2 of 55% , which is slightly better than yesterday Vitals and labs are stable. LDH is trending down 952, C-reactive protein 1.9. He has mild leukocytosis but he is on a prednisone 40 mg Also he is on Eliquis, multiple vitamins and Baricitinib 12/06/2020 Patient breathing status is improving and his oxygen requirement is down to 40 L per minute and FiO2 of 45%. Patient feels generally the same with mild tachypnea while he is sitting/lying in bed most of the time. Other vitals are stable He continue on Eliquis, prednisone 40 mg, multiple vitamins and Baricitinib Objective - Vital Signs Vital signs: Vital Signs Temp 98 F 12/06/20 09:38 Pulse 78 12/06/20 09:38 Resp 18 12/06/20 09:38 BP 104/64 12/06/20 09:38 Pulse Ox 97 12/06/20 12:31 Intake & Output 12/05/20 12/06/20 12/06/20 18:59 06:59 18:59 Intake Total 360 Output Total 660 Balance 360 -660 Intake: Oral 360 Output: Urine 660 Other: Voiding Method Urinal # Voids 3 4 # Bowel Movements 0 - Exam GENERAL: The patient is alert and oriented x3, not in any acute distress. Well developed, well nourished. HEENT: Pupils are round and equally reacting to light. EOMI. No scleral icterus. No conjunctival pallor. Normocephalic, atraumatic. No pharyngeal erythema. No thyromegaly. CARDIOVASCULAR: S1 and S2 present. No murmurs, rubs, or gallops. PULMONARY: Chest is clear to auscultation, no wheezing or crackles. ABDOMEN: Soft, nontender, nondistended, normoactive bowel sounds. No palpable organomegaly. MUSCULOSKELETAL: No joint swelling or deformity. EXTREMITIES: No cyanosis, clubbing, or pedal edema. NEUROLOGICAL: Gross neurological examination did not reveal any focal deficits. SKIN: No rashes. No petechiae - Labs CBC & Chem 7: 12/05/20 07:58 12/05/20 07:58 Labs: Abnormal Lab Results - Last 24 Hours (Table) 12/05/20 12/05/20 12/06/20 Range/Units 17:02 20:11 11:45 POC Glucose (mg/dL) 118 H 142 H 112 H (75-99) mg/dL Assessment and Plan Assessment: Acute COVID-19 pneumonia Acute hypoxic respiratory failure secondary to COVID-19 pneumonia Bilateral small pulmonary emboli in lower lobes Elevated inflammatory markers Plan: This is a pleasant 65 years old male who presents with bilateral PE on to Covid infection Continue with Eliquis Continue with steroids per pulmonary recommendation, currently on prednisone 40 mg and multiple vitamins, vitamin C, D and zinc oxide. Also baricitinib Labs and medication were reviewed.. Continue same treatment. Continue with symptomatic treatment. Resume home medication. Monitor lytes and vitals. DVT and GI prophylaxis. Further recommendations depends on the clinical course of the patient DVT prophylaxis: Eliquis GI Prophylaxis: Ppi Prognosis is guarded
[2020-12-06 16:45] LABS: Glucose,Whole Blood 135 mg/dL (75-99)
[2020-12-06] MEDS: SODIUM CHLORIDE 0.9% 1,000 ML IV SCH (17:27)
[2020-12-06 21:01] LABS: Glucose,Whole Blood 115 mg/dL (75-99)
[2020-12-07 07:23] LABS: Glucose,Whole Blood 96 mg/dL (75-99)
[2020-12-07] MEDS: INSULIN ASPART (NovoLOG) 100 UNIT/ML VIAL SQ SCH ×4 (08:17→21:21)
[2020-12-07] MEDS: ASCORBIC ACID 500 MG TAB PO SCH ×2 (08:23→08:24)
[2020-12-07] MEDS: ZINC SULFATE 220 MG CAP PO SCH (08:23)
[2020-12-07] MEDS: predniSONE 20 MG TAB PO SCH (08:24)
[2020-12-07] MEDS: CHOLECALCIFEROL 25 MCG (1000 IU) TABLET PO SCH (08:24)
[2020-12-07] MEDS: BARICITINIB 2 MG TABLET PO SCH (08:24)
[2020-12-07] MEDS: APIXABAN 5 MG TAB PO SCH ×2 (08:24→21:21)
[2020-12-07] MEDS: PANTOPRAZOLE 40 MG TABLET PO SCH ×2 (08:24→17:05)
[2020-12-07 08:31] LABS: Basophils % (A) 0 %; Eosinophils # (A) 0.1 k/uL (0-0.7); Eosinophils % (A) 1 %; HCT 31.5 % (39.0-53.0); HGB 10.5 gm/dL (13.0-17.5); Lymphocytes # (A) 1.1 k/uL (1.0-4.8); Lymphocytes % (A) 11 %; MCH 30.8 pg (25.0-35.0); MCHC 33.3 g/dL (31.0-37.0); MCV 92.3 fL (80.0-100.0); Mean Platelet Volume 7.8; Monocytes # (A) 0.4 k/uL (0-1.0); Monocytes % (A) 4 %; Neutrophils # (A) 8.2 k/uL (1.3-7.7); Neutrophils % (A) 83 %; Platelet Count 227 k/uL (150-450); RBC 3.41 m/uL (4.30-5.90); RDW 14.3 % (11.5-15.5)
[2020-12-07 08:51] LABS: ALT 63 U/L (4-49); AST 35 U/L (17-59); African American GFR (CKD) >90 (>60 ml/min/1.73 sqM); Albumin 2.9 g/dL (3.5-5.0); Albumin/Globulin Ratio 1.1; Alkaline Phosphatase 78 U/L (38-126); Anion Gap 6 mmol/L; Blood Urea Nitrogen 25 mg/dL (9-20); C Reactive Protein 0.7 mg/dL (<1.0); Calcium 8.5 mg/dL (8.4-10.2); Carbon Dioxide 28 mmol/L (22-30); Chloride 102 mmol/L (98-107); Globulin 2.6 g/dL; Glucose 82 mg/dL (74-99); LDH 588 U/L (313-618); Non-African American GFR(CKD) 88 (>60 ml/min/1.73 sqM); Potassium 3.9 mmol/L (3.5-5.1); Sodium 136 mmol/L (137-145); Total Bilirubin 0.8 mg/dL (0.2-1.3); Total Protein 5.5 g/dL (6.3-8.2)
[2020-12-07] MEDS: ALBUTEROL HFA INHALER INHALATION SCH ×4 (09:00→20:17)
[2020-12-07 11:48] LABS: Glucose,Whole Blood 108 mg/dL (75-99)
--- NOTE | 2020-12-07 13:27 | P.PN ---
Subjective Progress Note Date: 12/07/20 The patient is seen today 12/06/2020 in follow-up on the regular medical floor. He is currently sitting up in bed. Awake and alert in no acute distress. He is down to 30 L and 35% FiO2 via the AirVo high flow oxygen. Breathing easier today. No worsening shortness of breath, cough or congestion. White count 10.0. Hemoglobin 10.5. Sodium 136. Potassium 3.9. Creatinine 0.91. AST 35, ALT 63. LDH 58. C-reactive protein 0.7. He is continued on Baricitinib, anticoagulated with Eliquis, prednisone and vitamin supplements. Objective - Vital Signs Vital signs: Vital Signs Temp 98.3 F 12/07/20 10:00 Pulse 86 12/07/20 10:00 Resp 16 12/07/20 10:00 BP 103/64 12/07/20 10:00 Pulse Ox 91 L 12/07/20 12:26 Intake & Output 12/06/20 12/07/20 12/07/20 18:59 06:59 18:59 Intake Total 200 466 Balance 200 466 Intake: Oral 200 466 Other: Voiding Method Urinal Urinal # Voids 3 1 # Bowel Movements 0 - Exam GENERAL EXAM: Alert, active, is 65-year-old gentleman on AirVo high flow oxygen at 30 L and 35% FiO2, comfortable in no apparent distress. HEAD: Normocephalic. EYES: Normal reaction of pupils, equal size. NOSE: Clear with pink turbinates. THROAT: No erythema or exudates. NECK: No masses, no JVD. CHEST: No chest wall deformity. LUNGS: Equal air entry with coarse crackles in the posterior bases. CVS: S1 and S2 normal with no audible murmur, regular rhythm. ABDOMEN: No hepatosplenomegaly, normal bowel sounds, no guarding or rigidity. SPINE: No scoliosis or deformity SKIN: No rashes CENTRAL NERVOUS SYSTEM: No focal deficits, tone is normal in all 4 extremities. EXTREMITIES: There is no peripheral edema. No clubbing, no cyanosis. Peripheral pulses are intact. - Labs CBC & Chem 7: 12/07/20 07:20 12/07/20 07:20 Labs: Abnormal Lab Results - Last 24 Hours (Table) 12/06/20 12/06/20 12/07/20 Range/Units 16:44 20:58 07:20 RBC 3.41 L (4.30-5.90) m/uL Hgb 10.5 L (13.0-17.5) gm/dL Hct 31.5 L (39.0-53.0) % Neutrophils # 8.2 H (1.3-7.7) k/uL Sodium (137-145) mmol/L BUN (9-20) mg/dL POC Glucose (mg/dL) 135 H 115 H (75-99) mg/dL ALT (4-49) U/L Total Protein (6.3-8.2) g/dL Albumin (3.5-5.0) g/dL 12/07/20 12/07/20 Range/Units 07:20 11:47 RBC (4.30-5.90) m/uL Hgb (13.0-17.5) gm/dL Hct (39.0-53.0) % Neutrophils # (1.3-7.7) k/uL Sodium 136 L (137-145) mmol/L BUN 25 H (9-20) mg/dL POC Glucose (mg/dL) 108 H (75-99) mg/dL ALT 63 H (4-49) U/L Total Protein 5.5 L (6.3-8.2) g/dL Albumin 2.9 L (3.5-5.0) g/dL Assessment and Plan Assessment: 1 Acute COVID-19 related pneumonia, with onset of symptoms of 11/09/2020, diagnosed on 11/16/2020, hospitalized and treated with a combination of Decadron and Remdesivir, to be readmitted back to the hospital related to worsening shortness of breath and hypoxia. Currently on Prednisone, Baricitnib and Eliquis remains on high flow oxygen today on 12/07/2020. Patient was not vaccinated for COVID-19. Currently on Airvo, at 30 L and FiO2 of 35% 2 Bilateral pulmonary emboli, with CTA chest completed on 11/25/2020 showing small peripheral pulmonary emboli and bilateral lower lobes, no RV strain. Patient has been started on Eliquis 5 mg twice a day 3 Acute hypoxic respiratory failure secondary to the above, currently on Airvo at 55l/Fio2 of 65% 4 Elevated inflammatory markers including LDH and a d-dimer and CRP related to a viral pneumonia 5 Shortness of breath related to the above Plan: The patient was seen and evaluated by Dr. Roberson We'll [employer] exchange architect from AirVo high flow to regular oxygen per nasal cannula Titrate the FiO2 as tolerated Continue Baricitinib, glucose, Decadron, vitamin supplements Home once oxygen dependent 4 L/m per nasal cannula We'll continue to follow I, the cosigning physician, performed a history & physical examination of the patient. Lungs sounds with coarse crackles in the posterior bases. Maintaining good O2 saturations in the 90s on AirVo high flow oxygen at 30 L and 35 percent FiO2. I discussed the assessment and plan of care with my nurse practitioner, Chelsea Ramos. I attest to the above note as dictated by her.
[2020-12-07] MEDS: SODIUM CHLORIDE 0.9% 1,000 ML IV SCH (15:31)
--- NOTE | 2020-12-07 15:32 | P.PN ---
Subjective Date of service for this note is on 11/28/20 Mr. Hoyos is a 65-year-old male with a past medical history of COVID-19 pneumonia diagnosed on 11/16/2020 coming into the hospital with a chief complaint of difficulty in breathing. Patient was recently discharged from the hospital 3 days after being treated for COVID-19 pneumonia. He is not vaccinated and he does not have significant past medical history. During that hospital admission patient received remdesivir and Decadron he was discharged home on steroids for 4 more days. Patient states that since being discharged he felt okay for a day or so but later on started to have worsening shortness of breath. Patient denied having any fever chills or rigors. He denied having any chest pain or palpitations. He denied having any swelling of his lower extremities. He complained of exertional dyspnea. In the ER at the time of admission patient's vital signs temperature of 98.2, heart rates 100, blood pressure 122/66, saturating at 88% on 6 L of nasal cannula. He had a chest x-ray showing bilateral pneumonia EKG showing normal sinus rhythm with heart rate around 96 bpm. Patient also had CT angio of the chest showing small peripheral bilateral pulmonary emboli in the lower lobes w ith no RV strain. And bilateral multifocal groundglass opacities that correlate to his Covid pneumonia. On reviewing his labs white count of 12.2, hemoglobin 10.7, platelets 275. Sodium 136, potassium 4.2, chloride 104, bicarb 25, BUN 33, creatinine 0.91. Lactic acid two-point 1 repeat is 1.6 LDH of 1359, CRP of 18.2, albumin of 2.8. D-dimer more than 34. Patient was started on heparin drip and admitted for further management. 11/26/2020 Patient this morning was sitting in bed comfortable, he was on BiPAP machine stating that his breathing is slightly better compared to yesterday. He was saturating 88% on 6 L of oxygen via nasal cannula vitals are stable. WBC is down 10.7 K. BMP is unremarkable Echocardiogram showing ejection fraction of 60-65% He remains on IV heparin for bilateral PE. On multiple vitamins C, D and zinc oxide for his Covid infection 11/27/2020 Patients with bilateral Covid pneumonia with mild dyspnea. He is saturating 91% on 6 L oxygen via nasal cannula slightly better than yesterday. His Procalcitonin is a slightly elevated at 0.2 to however he does not need antibacterial antibiotics No labs from today, was placed on insulin sliding scale He continued on Solu-Medrol 60 mg and Baricitinib . His anticoagulation is wished to Eliquis 5 mg twice a day. He remains on multiple vitamins 11/28/20 Patient breathing is stable, his oxygen saturation is 3-6 L/m to keep oxygen saturation low 90s and high 80s. we discussed the case with pulmonary team and they prefer to keep the patient bowel as his stable for discharge Chest x-ray showing persistent bilateral pulmonary infiltrate. WBC is down 13.2 K. Echocardiogram showing ejection fraction of 60-65% He remains on Eliquis for bilateral PE. On multiple vitamins C, D and zinc oxide for his Covid infection, and Baricitinib Subjective: 12/02/20 Patient this morning he was sitting in bed, not significantly dyspneic or tachypneic, he was asking eagerly to be discharged home today. Was on 3 L/m of oxygen via nasal cannula. However during the day his oxygen requirement worsened up to 10 L/m. He is afebrile. Labs including CBC and BMP were unremarkable. Liver enzymes looks stable. Remains on a prednisone 40 mg, multiple vitamins including vitamin C, D and zinc Also he is on Eliquis 5 mg twice a day for his bilateral PE.nd Baricitinib Pulmonary team on the case 12/03/2020 Patient is still dyspneic, he was able to appropriately this morning, his oxygen requirement worsened yesterday up to 10 L/m. Today he has tube placed on high flow nasal cannula/airvo with FiO2 of 92% at 60 L/m Repeat chest x-ray showing bilateral infiltrates He is on prednisone 40 mg, also he is on Eliquis, vitamin C, vitamin D and zinc.and Baricitinib. He got 1 dose of Lasix today per pulmonary team I discussed the case with pulmonary team today I discussed the case with the patient and over his phone and all their questions were answered. 12/04/2020 Patient still somewhat tachypneic and dyspneic similar her close to yesterday however his oxygen requirement increased and currently he is on Airvo 55 L/m with FiO2 of 75% saturating in the low 90s. History see is 11.2 K. Pro-calcitonin came back normal yesterday at 0.04. No need for IV antibiotic He continue on Eliquis, prednisone 40 mg, multiple vitamins and Baricitinib 12/05/2020 Patient is sitting up in bed with mild tachypnea, token freely. However is still on Airvo 55 L/m with FiO2 of 55% , which is slightly better than yesterday Vitals and labs are stable. LDH is trending down 952, C-reactive protein 1.9. He has mild leukocytosis but he is on a prednisone 40 mg Also he is on Eliquis, multiple vitamins and Baricitinib 12/06/2020 Patient breathing status is improving and his oxygen requirement is down to 40 L per minute and FiO2 of 45%. Patient feels generally the same with mild tachypnea while he is sitting/lying in bed most of the time. Other vitals are stable He continue on Eliquis, prednisone 40 mg, multiple vitamins and Baricitinib 12/07/2020 Patient oxygen requirements down to 8 L/m. Patient improving gradually Vitals and labs stable continue on Eliquis, prednisone 40 mg, multiple vitamins and Baricitinib Objective - Vital Signs Vital signs: Vital Signs Temp 97.6 F 12/07/20 14:00 Pulse 101 H 12/07/20 14:00 Resp 16 12/07/20 14:00 BP 109/70 12/07/20 14:00 Pulse Ox 97 12/07/20 14:00 Intake & Output 12/06/20 12/07/20 12/07/20 18:59 06:59 18:59 Intake Total 200 466 Balance 200 466 Intake: Oral 200 466 Other: Voiding Method Urinal Urinal # Voids 3 1 # Bowel Movements 0 - Exam GENERAL: The patient is alert and oriented x3, not in any acute distress. Well developed, well nourished. HEENT: Pupils are round and equally reacting to light. EOMI. No scleral icterus. No conjunctival pallor. Normocephalic, atraumatic. No pharyngeal erythema. No thyromegaly. CARDIOVASCULAR: S1 and S2 present. No murmurs, rubs, or gallops. PULMONARY: Chest is clear to auscultation, no wheezing or crackles. ABDOMEN: Soft, nontender, nondistended, normoactive bowel sounds. No palpable organomegaly. MUSCULOSKELETAL: No joint swelling or deformity. EXTREMITIES: No cyanosis, clubbing, or pedal edema. NEUROLOGICAL: Gross neurological examination did not reveal any focal deficits. SKIN: No rashes. No petechiae - Labs CBC & Chem 7: 12/07/20 07:20 12/07/20 07:20 Labs: Abnormal Lab Results - Last 24 Hours (Table) 12/06/20 12/06/20 12/07/20 Range/Units 16:44 20:58 07:20 RBC 3.41 L (4.30-5.90) m/uL Hgb 10.5 L (13.0-17.5) gm/dL Hct 31.5 L (39.0-53.0) % Neutrophils # 8.2 H (1.3-7.7) k/uL Sodium (137-145) mmol/L BUN (9-20) mg/dL POC Glucose (mg/dL) 135 H 115 H (75-99) mg/dL ALT (4-49) U/L Total Protein (6.3-8.2) g/dL Albumin (3.5-5.0) g/dL 12/07/20 12/07/20 Range/Units 07:20 11:47 RBC (4.30-5.90) m/uL Hgb (13.0-17.5) gm/dL Hct (39.0-53.0) % Neutrophils # (1.3-7.7) k/uL Sodium 136 L (137-145) mmol/L BUN 25 H (9-20) mg/dL POC Glucose (mg/dL) 108 H (75-99) mg/dL ALT 63 H (4-49) U/L Total Protein 5.5 L (6.3-8.2) g/dL Albumin 2.9 L (3.5-5.0) g/dL Assessment and Plan Assessment: Acute COVID-19 pneumonia Acute hypoxic respiratory failure secondary to COVID-19 pneumonia Bilateral small pulmonary emboli in lower lobes Elevated inflammatory markers Plan: This is a pleasant 65 years old male who presents with bilateral PE on to Covid infection Continue with Eliquis Continue with steroids per pulmonary recommendation, currently on prednisone 40 mg and multiple vitamins, vitamin C, D and zinc oxide. Also baricitinib Labs and medication were reviewed.. Continue same treatment. Continue with symptomatic treatment. Resume home medication. Monitor lytes and vitals. DVT and GI prophylaxis. Further recommendations depends on the clinical course of the patient DVT prophylaxis: Eliquis GI Prophylaxis: Ppi Prognosis is guarded
[2020-12-07 16:53] LABS: Glucose,Whole Blood 148 mg/dL (75-99)
[2020-12-07 20:18] LABS: Glucose,Whole Blood 113 mg/dL (75-99)
[2020-12-08 06:58] LABS: Glucose,Whole Blood 105 mg/dL (75-99)
[2020-12-08] MEDS: INSULIN ASPART (NovoLOG) 100 UNIT/ML VIAL SQ SCH ×4 (07:42→20:37)
[2020-12-08] MEDS: predniSONE 20 MG TAB PO SCH (07:48)
[2020-12-08] MEDS: CHOLECALCIFEROL 25 MCG (1000 IU) TABLET PO SCH (07:48)
[2020-12-08] MEDS: APIXABAN 5 MG TAB PO SCH ×2 (07:48→20:41)
[2020-12-08] MEDS: PANTOPRAZOLE 40 MG TABLET PO SCH ×2 (07:48→17:02)
[2020-12-08] MEDS: ASCORBIC ACID 500 MG TAB PO SCH (07:48)
[2020-12-08] MEDS: ZINC SULFATE 220 MG CAP PO SCH (07:48)
[2020-12-08] MEDS: BARICITINIB 2 MG TABLET PO SCH (07:49)
[2020-12-08] MEDS: ALBUTEROL HFA INHALER INHALATION SCH ×4 (08:28→20:46)
[2020-12-08 08:46] LABS: Basophils % (A) 0 %; Eosinophils # (A) 0.1 k/uL (0-0.7); Eosinophils % (A) 1 %; HCT 33.8 % (39.0-53.0); HGB 11.1 gm/dL (13.0-17.5); Lymphocytes # (A) 1.1 k/uL (1.0-4.8); Lymphocytes % (A) 9 %; MCH 30.6 pg (25.0-35.0); MCHC 32.9 g/dL (31.0-37.0); Mean Platelet Volume 7.7; Monocytes # (A) 0.7 k/uL (0-1.0); Monocytes % (A) 5 %; Neutrophils # (A) 10.5 k/uL (1.3-7.7); Neutrophils % (A) 84 %; Platelet Count 264 k/uL (150-450); RBC 3.63 m/uL (4.30-5.90); RDW 14.1 % (11.5-15.5); WBC 12.4 k/uL (3.8-10.6)
[2020-12-08 08:58] LABS: ALT 72 U/L (4-49); AST 45 U/L (17-59); African American GFR (CKD) >90 (>60 ml/min/1.73 sqM); Albumin 3.1 g/dL (3.5-5.0); Albumin/Globulin Ratio 1.2; Alkaline Phosphatase 83 U/L (38-126); Anion Gap 7 mmol/L; Blood Urea Nitrogen 22 mg/dL (9-20); Carbon Dioxide 27 mmol/L (22-30); Chloride 102 mmol/L (98-107); Globulin 2.6 g/dL; Glucose 93 mg/dL (74-99); Non-African American GFR(CKD) 83 (>60 ml/min/1.73 sqM); Potassium 3.7 mmol/L (3.5-5.1); Sodium 136 mmol/L (137-145); Total Bilirubin 0.7 mg/dL (0.2-1.3); Total Protein 5.7 g/dL (6.3-8.2)
[2020-12-08 11:44] LABS: Glucose,Whole Blood 108 mg/dL (75-99)
--- NOTE | 2020-12-08 12:33 | P.PN ---
Subjective Progress Note Date: 12/08/20 Principal diagnosis: COVID-19 pneumonia On 12/02/2020 patient seen in follow-up on medical surgical floor, this morning and attempt was made to wean down his oxygen from 10 L to 7 L however patient Desaturating into the high 70s low 80s, and he is currently on 7 L of oxygen his pulse ox of 79%. Does not appear to be in any acute respiratory distress, however his oxygen flow had to be increased again to 10-15 L in view of his persistent hypoxemia, patient denied any fever or chills, however she feels extremely frustrated because she was hoping to be able to go home today. On 10 L of oxygen his pulse ox is 90%. With any exertion patient desaturates and takes a while to recover. His chest x-ray today shows patchy density at the lung bases no evident pneumothorax. Patient continues on oral prednisone 40 mg daily, he is on Eliquis 5 mg twice daily, and Baricitinib. Today's labs have been reviewed, we will blood cell count is 12.8, hemoglobin is 10.5, sodium is 139, potassium is 3.8, chloride is 108, CO2 27, B1 is 35 creatinine 0.97. Patient was retested for COVID-19 and was again positive. His was asking to be able to visit her however in view of the current policy patient is still positive for COVID-19. On 12/03/2020 patient seen in follow-up on medical surgical floor. He remains on high flow oxygen, and on 10 L per high flow oxygen his pulse ox is daily 88%, patient desaturates to 79% with any movement even repositioning in bed, his O2 flow has been increased to 15 L, and patient is still saturating around 85-87% and she will be placed on Airvo to maintaining his O2 saturations between 80- 90%. He remains on Eliquis 5 mg twice a day, he remains on prednisone [address] chest did show small peripheral pulmonary emboli. Today's chest x-ray shows bilateral patchy airspace disease at the lung bases peripherally, no evident pneumothorax or pleural effusions. He is maintaned on Baricitinib, he is on multivitamins, he is on prednisone. His labs have been reviewed, his white blood cell count is 10.4, hemoglobin is 10.2, electrolytes are within normal limits, B1 is 30 creatinine 0.83. Lung sounds are positive for coarse crackles at lower and mid lung zones. Pro-calcitonin level has been sent and pending, cultures are negative thus far. On today's evaluation on 12/04/2020 patient seen in follow-up on medical s urgical floor, he remains on Airvo at 55 L, and FiO2 has been dropped down to 65 percent, from a 75% on yesterday's exam, and patient is maintaining O2 saturations at 89-90%, afebrile overnight, blood pressure is 100/67, he is awake and alert, oriented 3, extremely pleasant and cooperative, he is working on incentive spirometer, he is motivated to do so, and he is achieving 1.5 L on the today. He has been self repositioning in bed. He has been get not to the bedside commode with assistance and close supervision, he does desaturate with any activity however he recovers. He doesn't have much of a cough left, only occasional cough, without phlegm production, no hemoptysis, no complaints of chest discomfort, lung sounds revealed still coarse his story crackles over left lower lobe. Today's chest x-ray shows bilateral patchy airspace disease especially at the lung bases peripherally. Patient continues on Baricitinib, prednisone, Eliquis 5 mg daily. Today's lab 7 reviewed, his white blood cell count is 11.8, hemoglobin is 9.6, platelet count is 295, sodium is 140, potassium is 4.2, chloride is 108, BUN is 30, creatinine 0.96, AST is 78, ALT 62, his last LDH from 11/28/2020 was improving and was down to 952, with CRP down to 4.1. appetite is fair, no nausea, vomiting or diarrhea. On 12/05/2020 patient seen in follow-up on medical surgical floor. He sitting up in the recliner, in no acute distress, he remains on Airvo currently at 55 L, and FiO2 of 55%, and his pulse ox is 97-100%, afebrile, hemodynamically his been stable. His oxygenation is excellent on those settings, and his FiO2 can be further weaned, and possibly switch to high flow nasal cannula today. No compl aints of chest discomfort, no fever or chills overnight. Today's chest x-ray shows COPD with basilar infiltrates. Today's labs have been reviewed showing orbital, 12.9, hemoglobin of 11.7, electrolytes within normal limits, BUN is 33 creatinine 0.98. AST is 48, ALT is 93, alkaline phosphatase is 88, LDH is 952, and CRP is 1.9. Pro-calcitonin level was 0.04, blood cultures have shown no growth. Patient continues on Eliquis, Baricitinib, and oral prednisone. On 12/06/2020 patient seen in follow-up on medical surgical floor. Remains on Airvo currently at 45 L and FiO2 45%, his pulse ox is 94-98%, yesterday according to the nursing staff patient was desaturating with exertion into the 70s and was taking a while to recover on Airvo, however his oxygenation seems to have improved, patient looks very comfortable on those above mentioned settings. He will be trialed on the regular high flow nasal cannula, his been afebrile overnight, vital signs have been stable. His last chest x-ray was yesterday on 12/05/2020 showing COPD with basilar infiltrates. Today's labs are still pending for today. Patient continues on Olumiant, oral prednisone, Eliquis 5 mg twice a day, and multivitamins On 12/08/2000 patient seen in follow-up on medical surgical floor, he is breathing very comfortably, he is awake and alert, in no acute distress, this morning his FiO2 was at 4 L and he was satting 99%, and his FiO2 was subsequently cut back to 2 L, his had no acute events overnight, no specific complaints, he is getting stronger, breathing easier, no complaint of chest discomfort. Today's labs have been reviewed, white blood cell count is 12.4, hemoglobin is 11.1, electrolytes and renal profile are unremarkable. His LDH on 12/07/2020 was down to 588, and is now within normal limits, and CRP is down to 0.7, both improved over last several days. Most recent chest x-ray from 12/05/2020 showed coarsened interstitial pattern with basilar infiltrates. Clinically patient is improving, his been get not out of bed, and ambulating with one person supervision and a rolling walker, tolerates activity fairly well. He remains on Eliquis for pulmonary emboli diagnosed during this admission. Patient is on Baricitinib, and he will be completing his course tomorrow, he has been on oral prednisone 40 mg daily, and vitamins. Objective - Vital Signs Vital signs: Vital Signs Temp 98.9 F 12/08/20 10:11 Pulse 87 12/08/20 10:11 Resp 17 12/08/20 10:11 BP 99/58 12/08/20 10:11 Pulse Ox 99 12/08/20 10:11 Intake & Output 12/07/20 12/08/20 12/08/20 18:59 06:59 18:59 Intake Total 702 236 Output Total 300 Balance 402 236 Intake: Oral 702 236 Output: Urine 300 Other: Voiding Method Urinal Urinal - Exam GENERAL EXAM: Alert, very pleasant, 65-year-old white male, Currently down to 4 L with a pulse ox of 99% HEAD: Normocephalic/atraumatic. EYES: Normal reaction of pupils, equal size. Conjunctiva pink, sclera white. NOSE: Clear with pink turbinates. THROAT: No erythema or exudates. NECK: No masses, no JVD, no thyroid enlargement, no adenopathy. CHEST: No chest wall deformity. Symmetrical expansion. LUNGS: Equal air entry with diffuse crackles, over left lower lobe CVS: Regular rate and rhythm, normal S1 and S2, no gallops, no murmurs, no rubs ABDOMEN: Soft, nontender. No hepatosplenomegaly, normal bowel sounds, no guarding or rigidity. EXTREMITIES: No clubbing, no edema, no cyanosis, 2+ pulses and upper and lower extremities. MUSCULOSKELETAL: Muscle strength and tone normal. SPINE: No scoliosis or deformity SKIN: No rashes CENTRAL NERVOUS SYSTEM: Alert and oriented -3. No focal deficits, tone is normal in all 4 extremities. PSYCHIATRIC: Alert and oriented -3. Appropriate affect. Intact judgment and insight. - Labs CBC & Chem 7: 12/08/20 08:23 12/08/20 08:23 Labs: Abnormal Lab Results - Last 24 Hours (Table) 12/07/20 12/07/20 12/08/20 Range/Units 16:52 20:00 06:57 WBC (3.8-10.6) k/uL RBC (4.30-5.90) m/uL Hgb (13.0-17.5) gm/dL Hct (39.0-53.0) % Neutrophils # (1.3-7.7) k/uL Sodium (137-145) mmol/L BUN (9-20) mg/dL POC Glucose (mg/dL) 148 H 113 H 105 H (75-99) mg/dL ALT (4-49) U/L Total Protein (6.3-8.2) g/dL Albumin (3.5-5.0) g/dL 12/08/20 12/08/20 12/08/20 Range/Units 08:23 08:23 11:39 WBC 12.4 H (3.8-10.6) k/uL RBC 3.63 L (4.30-5.90) m/uL Hgb 11.1 L (13.0-17.5) gm/dL Hct 33.8 L (39.0-53.0) % Neutrophils # 10.5 H (1.3-7.7) k/uL Sodium 136 L (137-145) mmol/L BUN 22 H (9-20) mg/dL POC Glucose (mg/dL) 108 H (75-99) mg/dL ALT 72 H (4-49) U/L Total Protein 5.7 L (6.3-8.2) g/dL Albumin 3.1 L (3.5-5.0) g/dL Assessment and Plan Plan: Assessment: #1. Acute COVID-19 related pneumonia, with onset of symptoms of 11/09/2020, diagnosed on 11/16/2020, hospitalized and treated with a combination of Decadron and Remdesivir, to be readmitted back to the hospital related to worsening shortness of breath and hypoxia. Currently on Prednisone, Baricitnib and Eliquis remains on high flow oxygen today on 12/02/2020. Patient was not vaccinated for COVID-19. was on Airvo, at 55 L and FiO2 of 55%, currently down to 2 L of oxygen #2. Bilateral pulmonary emboli, with CTA chest completed on 11/25/2020 showing small peripheral pulmonary emboli and bilateral lower lobes, no RV strain. Patient has been started on Eliquis 5 mg twice a day #3. Acute hypoxic respiratory failure secondary to the above, currently on Airvo at 55l/Fio2 of 65% #4. Elevated inflammatory markers including LDH and a d-dimer and CRP related to a viral pneumonia #5. Shortness of breath related to the above Plan: Clinically patient has been stable, hypoxia has improved, FiO2 is down to 2l/min obtain home oxygen assessment Stable for Discharge home, will need Eliquis 5 mg BID for at least 3 months Prednisone taper Follow up with Dr. Dempsey in 2 weeks I performed a history & physical examination of the patient and discussed their management with my nurse practitioner, Kavita Chris. I reviewed the nurse practitioner's note and agree with the documented findings and plan of care. Lung sounds are positive for diminished breath sounds with crackles throughout the lung murphy. The findings and the impression was discussed with the patient. I attest to the documentation by the nurse practitioner. Time with Patient: Less than 30
--- NOTE | 2020-12-08 13:05 | P.PN ---
Subjective Date of service for this note is on 11/28/20 Mr. Hoyos is a 65-year-old male with a past medical history of COVID-19 pneumonia diagnosed on 11/16/2020 coming into the hospital with a chief complaint of difficulty in breathing. Patient was recently discharged from the hospital 3 days after being treated for COVID-19 pneumonia. He is not vaccinated and he does not have significant past medical history. During that hospital admission patient received remdesivir and Decadron he was discharged home on steroids for 4 more days. Patient states that since being discharged he felt okay for a day or so but later on started to have worsening shortness of breath. Patient denied having any fever chills or rigors. He denied having any chest pain or palpitations. He denied having any swelling of his lower extremities. He complained of exertional dyspnea. In the ER at the time of admission patient's vital signs temperature of 98.2, heart rates 100, blood pressure 122/66, saturating at 88% on 6 L of nasal cannula. He had a chest x-ray showing bilateral pneumonia EKG showing normal sinus rhythm with heart rate around [address]pm[address] Patient also had CT angio of the chest showing small peripheral bilateral pulmonary emboli in the lower lobes w ith no RV strain. And bilateral multifocal groundglass opacities that correlate to his Covid pneumonia. On reviewing his labs white count of 12.2, hemoglobin 10.7, platelets 275. Sodium 136, potassium 4.2, chloride 104, bicarb 25, BUN 33, creatinine 0.91. Lactic acid two-point 1 repeat is 1.6 LDH of 1359, CRP of 18.2, albumin of 2.8. D-dimer more than 34. Patient was started on heparin drip and admitted for further management. 11/26/2020 Patient this morning was sitting in bed comfortable, he was on BiPAP machine stating that his breathing is slightly better compared to yesterday. He was saturating 88% on 6 L of oxygen via nasal cannula vitals are stable. WBC is down 10.7 K. BMP is unremarkable Echocardiogram showing ejection fraction of 60-65% He remains on IV heparin for bilateral PE. On multiple vitamins C, D and zinc oxide for his Covid infection 11/27/2020 Patients with bilateral Covid pneumonia with mild dyspnea. He is saturating 91% on 6 L oxygen via nasal cannula slightly better than yesterday. His Procalcitonin is a slightly elevated at 0.2 to however he does not need antibacterial antibiotics No labs from today, was placed on insulin sliding scale He continued on Solu-Medrol 60 mg and Baricitinib . His anticoagulation is wished to Eliquis 5 mg twice a day. He remains on multiple vitamins 11/28/20 Patient breathing is stable, his oxygen saturation is 3-6 L/m to keep oxygen saturation low 90s and high 80s. we discussed the case with pulmonary team and they prefer to keep the patient bowel as his stable for discharge Chest x-ray showing persistent bilateral pulmonary infiltrate. WBC is down 13.2 K. Echocardiogram showing ejection fraction of 60-65% He remains on Eliquis for bilateral PE. On multiple vitamins C, D and zinc oxide for his Covid infection, and Baricitinib Subjective: 12/02/20 Patient this morning he was sitting in bed, not significantly dyspneic or tachypneic, he was asking eagerly to be discharged home today. Was on 3 L/m of oxygen via nasal cannula. However during the day his oxygen requirement worsened up to 10 L/m. He is afebrile. Labs including CBC and BMP were unremarkable. Liver enzymes looks stable. Remains on a prednisone 40 mg, multiple vitamins including vitamin C, D and zinc Also he is on Eliquis 5 mg twice a day for his bilateral PE.nd Baricitinib Pulmonary team on the case 12/03/2020 Patient is still dyspneic, he was able to appropriately this morning, his oxygen requirement worsened yesterday up to 10 L/m. Today he has tube placed on high flow nasal cannula/airvo with FiO2 of 92% at 60 L/m Repeat chest x-ray showing bilateral infiltrates He is on prednisone 40 mg, also he is on Eliquis, vitamin C, vitamin D and zinc.and Baricitinib. He got 1 dose of Lasix today per pulmonary team I discussed the case with pulmonary team today I discussed the case with the patient and over his phone and all their questions were answered. 12/04/2020 Patient still somewhat tachypneic and dyspneic similar her close to yesterday however his oxygen requirement increased and currently he is on Airvo 55 L/m with FiO2 of 75% saturating in the low 90s. History see is 11.2 K. Pro-calcitonin came back normal yesterday at 0.04. No need for IV antibiotic He continue on Eliquis, prednisone 40 mg, multiple vitamins and Baricitinib 12/05/2020 Patient is sitting up in bed with mild tachypnea, token freely. However is still on Airvo 55 L/m with FiO2 of 55% , which is slightly better than yesterday Vitals and labs are stable. LDH is trending down 952, C-reactive protein 1.9. He has mild leukocytosis but he is on a prednisone 40 mg Also he is on Eliquis, multiple vitamins and Baricitinib 12/06/2020 Patient breathing status is improving and his oxygen requirement is down to 40 L per minute and FiO2 of 45%. Patient feels generally the same with mild tachypnea while he is sitting/lying in bed most of the time. Other vitals are stable He continue on Eliquis, prednisone 40 mg, multiple vitamins and Baricitinib 12/07/2020 Patient oxygen requirements down to 8 L/m. Patient improving gradually Vitals and labs stable continue on Eliquis, prednisone 40 mg, multiple vitamins and Baricitinib 12/08/2020 Patient doing well and better today. His oxygen requirements went down to 2-3 L/m. Pulmonary team arteriograms to be discharged home today however there is no sample case porter to help and deliver oxygen to his house. We will keep monitoring for now. Patient is aware and he agreeable. WBC is 12.4. Rest of CBC and BMP are unremarkable. Possible discharge in 24-48 hours Objective - Vital Signs Vital signs: Vital Signs Temp 98.9 F 12/08/20 10:11 Pulse 87 12/08/20 10:11 Resp 17 12/08/20 10:11 BP 99/58 12/08/20 10:11 Pulse Ox 99 12/08/20 10:11 Intake & Output 12/07/20 12/08/20 12/08/20 18:59 06:59 18:59 Intake Total 702 236 Output Total 300 Balance 402 236 Intake: Oral 702 236 Output: Urine 300 Other: Voiding Method Urinal Urinal - Exam GENERAL: The patient is alert and oriented x3, not in any acute distress. Well developed, well nourished. HEENT: Pupils are round and equally reacting to light. EOMI. No scleral icterus. No conjunctival pallor. Normocephalic, atraumatic. No pharyngeal erythema. No th yromegaly. CARDIOVASCULAR: S1 and S2 present. No murmurs, rubs, or gallops. PULMONARY: Chest is clear to auscultation, no wheezing or crackles. ABDOMEN: Soft, nontender, nondistended, normoactive bowel sounds. No palpable organomegaly. MUSCULOSKELETAL: No joint swelling or deformity. EXTREMITIES: No cyanosis, clubbing, or pedal edema. NEUROLOGICAL: Gross neurological examination did not reveal any focal deficits. SKIN: No rashes. No petechiae - Labs CBC & Chem 7: 12/08/20 08:23 12/08/20 08:23 Labs: Abnormal Lab Results - Last 24 Hours (Table) 12/07/20 12/07/20 12/08/20 Range/Units 16:52 20:00 06:57 WBC (3.8-10.6) k/uL RBC (4.30-5.90) m/uL Hgb (13.0-17.5) gm/dL Hct (39.0-53.0) % Neutrophils # (1.3-7.7) k/uL Sodium (137-145) mmol/L BUN (9-20) mg/dL POC Glucose (mg/dL) 148 H 113 H 105 H (75-99) mg/dL ALT (4-49) U/L Total Protein (6.3-8.2) g/dL Albumin (3.5-5.0) g/dL 12/08/20 12/08/20 12/08/20 Range/Units 08:23 08:23 11:39 WBC 12.4 H (3.8-10.6) k/uL RBC 3.63 L (4.30-5.90) m/uL Hgb 11.1 L (13.0-17.5) gm/dL Hct 33.8 L (39.0-53.0) % Neutrophils # 10.5 H (1.3-7.7) k/uL Sodium 136 L (137-145) mmol/L BUN 22 H (9-20) mg/dL POC Glucose (mg/dL) 108 H (75-99) mg/dL ALT 72 H (4-49) U/L Total Protein 5.7 L (6.3-8.2) g/dL Albumin 3.1 L (3.5-5.0) g/dL Assessment and Plan Assessment: Acute COVID-19 pneumonia Acute hypoxic respiratory failure secondary to COVID-19 pneumonia Bilateral small pulmonary emboli in lower lobes Elevated inflammatory markers Plan: This is a pleasant 65 years old male who presents with bilateral PE on to Covid infection Continue with Eliquis Continue with steroids per pulmonary recommendation, currently on prednisone 40 mg and multiple vitamins, vitamin C, D and zinc oxide. Also baricitinib Labs and medication were reviewed.. Continue same treatment. Continue with symptomatic treatment. Resume home medication. Monitor lytes and vitals. DVT and GI prophylaxis. Further recommendations depends on the clinical course of the patient DVT prophylaxis: Eliquis GI Prophylaxis: Ppi Prognosis is guarded
[2020-12-08 16:39] LABS: Glucose,Whole Blood 138 mg/dL (75-99)
[2020-12-08] MEDS: SODIUM CHLORIDE 0.9% 1,000 ML IV SCH (16:56)
[2020-12-08 20:06] LABS: Glucose,Whole Blood 116 mg/dL (75-99)
[2020-12-09 06:45] LABS: Glucose,Whole Blood 88 mg/dL (75-99)
[2020-12-09] MEDS: INSULIN ASPART (NovoLOG) 100 UNIT/ML VIAL SQ SCH ×2 (07:01→11:35)
[2020-12-09 07:46] LABS: Basophils % (A) 0 %; Eosinophils # (A) 0.1 k/uL (0-0.7); Eosinophils % (A) 1 %; HCT 32.1 % (39.0-53.0); HGB 10.6 gm/dL (13.0-17.5); Lymphocytes # (A) 1.2 k/uL (1.0-4.8); Lymphocytes % (A) 10 %; MCH 30.7 pg (25.0-35.0); MCHC 33.1 g/dL (31.0-37.0); MCV 92.8 fL (80.0-100.0); Mean Platelet Volume 7.6; Monocytes # (A) 0.5 k/uL (0-1.0); Monocytes % (A) 4 %; Neutrophils # (A) 9.8 k/uL (1.3-7.7); Neutrophils % (A) 84 %; Platelet Count 248 k/uL (150-450); RBC 3.46 m/uL (4.30-5.90); RDW 14.3 % (11.5-15.5); WBC 11.7 k/uL (3.8-10.6)
[2020-12-09] MEDS: ALBUTEROL HFA INHALER INHALATION SCH ×2 (07:56→12:30)
[2020-12-09 08:08] LABS: ALT 88 U/L (4-49); AST 48 U/L (17-59); African American GFR (CKD) >90 (>60 ml/min/1.73 sqM); Albumin/Globulin Ratio 1.2; Alkaline Phosphatase 88 U/L (38-126); Anion Gap 5 mmol/L; Blood Urea Nitrogen 20 mg/dL (9-20); Calcium 8.7 mg/dL (8.4-10.2); Carbon Dioxide 31 mmol/L (22-30); Chloride 100 mmol/L (98-107); Globulin 2.6 g/dL; Glucose 80 mg/dL (74-99); Non-African American GFR(CKD) >90 (>60 ml/min/1.73 sqM); Potassium 3.6 mmol/L (3.5-5.1); Sodium 136 mmol/L (137-145); Total Bilirubin 0.8 mg/dL (0.2-1.3); Total Protein 5.6 g/dL (6.3-8.2)
[2020-12-09] MEDS: predniSONE 20 MG TAB PO SCH (08:41)
[2020-12-09] MEDS: BARICITINIB 2 MG TABLET PO SCH (08:41)
[2020-12-09] MEDS: ZINC SULFATE 220 MG CAP PO SCH (08:42)
[2020-12-09] MEDS: ASCORBIC ACID 500 MG TAB PO SCH (08:42)
[2020-12-09] MEDS: PANTOPRAZOLE 40 MG TABLET PO SCH (08:42)
[2020-12-09] MEDS: APIXABAN 5 MG TAB PO SCH (08:42)
[2020-12-09] MEDS: CHOLECALCIFEROL 25 MCG (1000 IU) TABLET PO SCH (08:42)
[2020-12-09 09:43] VITALS: RESP 18
[2020-12-09] MEDS: SODIUM CHLORIDE 0.9% 1,000 ML IV SCH (11:35)
[2020-12-09 11:36] LABS: Glucose,Whole Blood 111 mg/dL (75-99)
[2020-12-09 14:02] VITALS: BP 98/64; PULSE 99; TEMP 98.4
--- NOTE | 2020-12-09 14:15 | P.PN ---
Subjective Progress Note Date: 12/09/20 Principal diagnosis: COVID-19 pneumonia On 12/02/2020 patient seen in follow-up on medical surgical floor, this morning and attempt was made to wean down his oxygen from 10 L to 7 L however patient Desaturating into the high 70s low 80s, and he is currently on 7 L of oxygen his pulse ox of 79%. Does not appear to be in any acute respiratory distress, however his oxygen flow had to be increased again to 10-15 L in view of his persistent hypoxemia, patient denied any fever or chills, however she feels extremely frustrated because she was hoping to be able to go home today. On 10 L of oxygen his pulse ox is 90%. With any exertion patient desaturates and takes a while to recover. His chest x-ray today shows patchy density at the lung bases no evident pneumothorax. Patient continues on oral prednisone 40 mg daily, he is on Eliquis 5 mg twice daily, and Baricitinib. Today's labs have been reviewed, we will blood cell count is 12.8, hemoglobin is 10.5, sodium is 139, potassium is 3.8, chloride is 108, CO2 27, B1 is 35 creatinine 0.97. Patient was retested for COVID-19 and was again positive. His was asking to be able to visit her however in view of the current policy patient is still positive for COVID-19. On 12/03/2020 patient seen in follow-up on medical surgical floor. He remains on high flow oxygen, and on 10 L per high flow oxygen his pulse ox is daily 88%, patient desaturates to 79% with any movement even repositioning in bed, his O2 flow has been increased to 15 L, and patient is still saturating around 85-87% and she will be placed on Airvo to maintaining his O2 saturations between 80- 90%. He remains on Eliquis 5 mg twice a day, he remains on prednisone [address] chest did show small peripheral pulmonary emboli. Today's chest x-ray shows bilateral patchy airspace disease at the lung bases peripherally, no evident pneumothorax or pleural effusions. He is maintaned on Baricitinib, he is on multivitamins, he is on prednisone. His labs have been reviewed, his white blood cell count is 10.4, hemoglobin is 10.2, electrolytes are within normal limits, B1 is 30 creatinine 0.83. Lung sounds are positive for coarse crackles at lower and mid lung zones. Pro-calcitonin level has been sent and pending, cultures are negative thus far. On today's evaluation on 12/04/2020 patient seen in follow-up on medical s urgical floor, he remains on Airvo at 55 L, and FiO2 has been dropped down to 65 percent, from a 75% on yesterday's exam, and patient is maintaining O2 saturations at 89-90%, afebrile overnight, blood pressure is 100/67, he is awake and alert, oriented 3, extremely pleasant and cooperative, he is working on incentive spirometer, he is motivated to do so, and he is achieving 1.5 L on the today. He has been self repositioning in bed. He has been get not to the bedside commode with assistance and close supervision, he does desaturate with any activity however he recovers. He doesn't have much of a cough left, only occasional cough, without phlegm production, no hemoptysis, no complaints of chest discomfort, lung sounds revealed still coarse his story crackles over left lower lobe. Today's chest x-ray shows bilateral patchy airspace disease especially at the lung bases peripherally. Patient continues on Baricitinib, prednisone, Eliquis 5 mg daily. Today's lab 7 reviewed, his white blood cell count is 11.8, hemoglobin is 9.6, platelet count is 295, sodium is 140, potassium is 4.2, chloride is 108, BUN is 30, creatinine 0.96, AST is 78, ALT 62, his last LDH from 11/28/2020 was improving and was down to 952, with CRP down to 4.1. appetite is fair, no nausea, vomiting or diarrhea. On 12/05/2020 patient seen in follow-up on medical surgical floor. He sitting up in the recliner, in no acute distress, he remains on Airvo currently at 55 L, and FiO2 of 55%, and his pulse ox is 97-100%, afebrile, hemodynamically his been stable. His oxygenation is excellent on those settings, and his FiO2 can be further weaned, and possibly switch to high flow nasal cannula today. No compl aints of chest discomfort, no fever or chills overnight. Today's chest x-ray shows COPD with basilar infiltrates. Today's labs have been reviewed showing orbital, 12.9, hemoglobin of 11.7, electrolytes within normal limits, BUN is 33 creatinine 0.98. AST is 48, ALT is 93, alkaline phosphatase is 88, LDH is 952, and CRP is 1.9. Pro-calcitonin level was 0.04, blood cultures have shown no growth. Patient continues on Eliquis, Baricitinib, and oral prednisone. On 12/06/2020 patient seen in follow-up on medical surgical floor. Remains on Airvo currently at 45 L and FiO2 45%, his pulse ox is 94-98%, yesterday according to the nursing staff patient was desaturating with exertion into the 70s and was taking a while to recover on Airvo, however his oxygenation seems to have improved, patient looks very comfortable on those above mentioned settings. He will be trialed on the regular high flow nasal cannula, his been afebrile overnight, vital signs have been stable. His last chest x-ray was yesterday on 12/05/2020 showing COPD with basilar infiltrates. Today's labs are still pending for today. Patient continues on Olumiant, oral prednisone, Eliquis 5 mg twice a day, and multivitamins On 12/08/2000 patient seen in follow-up on medical surgical floor, he is breathing very comfortably, he is awake and alert, in no acute distress, this morning his FiO2 was at 4 L and he was satting 99%, and his FiO2 was subsequently cut back to 2 L, his had no acute events overnight, no specific complaints, he is getting stronger, breathing easier, no complaint of chest discomfort. Today's labs have been reviewed, white blood cell count is 12.4, hemoglobin is 11.1, electrolytes and renal profile are unremarkable. His LDH on 12/07/2020 was down to 588, and is now within normal limits, and CRP is down to 0.7, both improved over last several days. Most recent chest x-ray from 12/05/2020 showed coarsened interstitial pattern with basilar infiltrates. Clinically patient is improving, his been get not out of bed, and ambulating with one person supervision and a rolling walker, tolerates activity fairly well. He remains on Eliquis for pulmonary emboli diagnosed during this admission. Patient is on Baricitinib, and he will be completing his course tomorrow, he has been on oral prednisone 40 mg daily, and vitamins. On 12/09/2020 patient seen in follow-up on medical surgical floor. He is awake and alert, in no acute distress, he is currently down to 3 L of oxygen, his pulse ox is 90%, his home oxygen assessment was repeated yesterday, patient clearly 05 for home oxygen, he did desat to 80% on room air with exercise. Vital signs have been stable, he has been afebrile. Not had a new chest x-ray in the last few days. His chest x-ray from 12/05/2020 showed COPD with some b asilar infiltrates. Blood work antunez been reviewed, showing white blood cell count of 11.7, hemoglobin of 10.6, electrolytes and renal profile were fairly unremarkable with the exception of CO2 which was up slightly at 31, renal profile was within normal limits. Blood cultures have shown no growth thus far. Patient continues on Eliquis, his prednisone dose is currently down to 40 mg, he is on multivitamins Objective - Vital Signs Vital signs: Vital Signs Temp 98.4 F 12/09/20 13:32 Pulse 99 12/09/20 13:32 Resp 18 12/09/20 13:32 BP 98/64 12/09/20 13:32 Pulse Ox 96 12/09/20 13:32 Intake & Output 12/08/20 12/09/20 12/09/20 18:59 06:59 18:59 Intake Total 472 250 Balance 472 250 Intake: Oral 472 250 Other: Voiding Method Urinal - Exam GENERAL EXAM: Alert, very pleasant, 65-year-old white male, Currently down to 3 L with a pulse ox of 94% HEAD: Normocephalic/atraumatic. EYES: Normal reaction of pupils, equal size. Conjunctiva pink, sclera white. NOSE: Clear with pink turbinates. THROAT: No erythema or exudates. NECK: No masses, no JVD, no thyroid enlargement, no adenopathy. CHEST: No chest wall deformity. Symmetrical expansion. LUNGS: Equal air entry with diffuse crackles, over left lower lobe CVS: Regular rate and rhythm, normal S1 and S2, no gallops, no murmurs, no rubs ABDOMEN: Soft, nontender. No hepatosplenomegaly, normal bowel sounds, no guarding or rigidity. EXTREMITIES: No clubbing, no edema, no cyanosis, 2+ pulses and upper and lower extremities. MUSCULOSKELETAL: Muscle strength and tone normal. SPINE: No scoliosis or deformity SKIN: No rashes CENTRAL NERVOUS SYSTEM: Alert and oriented -3. No focal deficits, tone is normal in all 4 extremities. PSYCHIATRIC: Alert and oriented -3. Appropriate affect. Intact judgment and insight. - Labs CBC & Chem 7: 12/09/20 06:38 12/09/20 06:38 Labs: Abnormal Lab Results - Last 24 Hours (Table) 12/08/20 12/08/20 12/09/20 Range/Units 16:38 20:03 06:38 WBC 11.7 H (3.8-10.6) k/uL RBC 3.46 L (4.30-5.90) m/uL Hgb 10.6 L (13.0-17.5) gm/dL Hct 32.1 L (39.0-53.0) % Neutrophils # 9.8 H (1.3-7.7) k/uL Sodium (137-145) mmol/L Carbon Dioxide (22-30) mmol/L POC Glucose (mg/dL) 138 H 116 H (75-99) mg/dL ALT (4-49) U/L Total Protein (6.3-8.2) g/dL Albumin (3.5-5.0) g/dL 12/09/20 12/09/20 Range/Units 06:38 11:34 WBC (3.8-10.6) k/uL RBC (4.30-5.90) m/uL Hgb (13.0-17.5) gm/dL Hct (39.0-53.0) % Neutrophils # (1.3-7.7) k/uL Sodium 136 L (137-145) mmol/L Carbon Dioxide 31 H (22-30) mmol/L POC Glucose (mg/dL) 111 H (75-99) mg/dL ALT 88 H (4-49) U/L Total Protein 5.6 L (6.3-8.2) g/dL Albumin 3.0 L (3.5-5.0) g/dL Assessment and Plan Plan: Assessment: #1. Acute COVID-19 related pneumonia, with onset of symptoms of 11/09/2020, diagnosed on 11/16/2020, hospitalized and treated with a combination of Decadron and Remdesivir, to be readmitted back to the hospital related to worsening shor tness of breath and hypoxia. Currently on Prednisone, Baricitnib and Eliquis remains on high flow oxygen today on 12/02/2020. Patient was not vaccinated for COVID-19. was on Airvo, at 55 L and FiO2 of 55%, currently down to 2 L of oxygen #2. Bilateral pulmonary emboli, with CTA chest completed on 11/25/2020 showing small peripheral pulmonary emboli and bilateral lower lobes, no RV strain. Pat ient has been started on Eliquis 5 mg twice a day #3. Acute hypoxic respiratory failure secondary to the above, currently on Airvo at 55l/Fio2 of 65% #4. Elevated inflammatory markers including LDH and a d-dimer and CRP related to a viral pneumonia #5. Shortness of breath related to the above Plan: Repeat home oxygen assessment has been noted, and patient qualified for home oxygen, he will be going home on 3 L of supplemental oxygen He can finish outpatient prednisone taper, He will need to continue on Eliquis 5 mg twice daily for evidence of small peripheral pulmonary emboli He can continue on home vitamins including vitamin Zinc, C and a vitamin D Follow up with Dr. Dempsey in 2 weeks I performed a history & physical examination of the patient and discussed their management with my nurse practitioner, Kavita Chris. I reviewed the nurse practitioner's note and agree with the documented findings and plan of care. Lung sounds are positive for diminished breath sounds with crackles throughout the lung murphy. The findings and the impression was discussed with the patien t. I attest to the documentation by the nurse practitioner. Time with Patient: Less than 30
== END 2020-12-09 14:44 | disposition home or self-care (01) | DRG 177 ==
LOC: EC 14:20 → 3SCARD 16:10 → 4SSUR 11-30 22:07
PROVIDERS: ADMIT Internal Medicine; ATTEND Internal Medicine
PROC: 5A09457 Assistance with Respiratory Ventilation, 24-96 Consecutive Hours, Continuous Positive Airway Pressure (ICD-10-PCS; principal; 2020-11-25)
PROC: XW0DXM6 Introduction of Baricitinib into Mouth and Pharynx, External Approach, New Technology Group 6 (ICD-10-PCS; 2020-11-26)
DX: U07.1 COVID-19 (principal); I26.99 Other pulmonary embolism without acute cor pulmonale; J12.82 Pneumonia due to coronavirus disease 2019; J96.01 Acute respiratory failure with hypoxia; J44.0 Chronic obstructive pulmonary disease with (acute) lower respiratory infection; Z79.01 Long term (current) use of anticoagulants; Z79.899 Other long term (current) drug therapy; Z87.891 Personal history of nicotine dependence; D72.810 Lymphocytopenia; R74.01 Elevation of levels of liver transaminase levels
CPT/HCPCS: 36415; 71045; 71275; 80048; 80053; 82728; 83605; 83615; 83735; 84145; 85025; 85379; 85610; 85730; 86140; 87040; 87635; 93005; 93306; 93970; 94002; 94640; 94660; 94760; 99285

== ENCOUNTER → 2022-03-30 | Outpatient (CLI) | payer MEDICARE ==
--- NOTE | 2022-03-30 08:52 | US ---
EXAMINATION TYPE: US duplex aorta DATE OF EXAM: 03/30/2022 COMPARISON: NONE CLINICAL HISTORY: Z13.6 SCREENING FOR AAA. AAA screening. Prior smoker. TECHNIQUE: Multiple sonographic images of the abdominal aorta are obtained. FINDINGS: EXAM MEASUREMENTS: Abdominal Aorta: Proximal: 2.7 x 2.6 cm Mid: 2.3 x 2.1 cm Distal: 1.9 x 2.4 cm Bifurcation: Right: 1.2 x 1.4 cm. Left: 1.4 x 1.3 cm. DIRECTOR OF CONSUMER AFFAIRS NOTES: Exam is limited due to gas. Proximal segment appears ectatic. IMPRESSION: Ectasia of the proximal abdominal aorta measuring up to 2.7 cm without evidence for aneurysm.
== END | disposition home or self-care (01) ==
LOC: RADUSWWP 08:10
PROVIDERS: ATTEND Family Medicine
DX: Z13.6 Encounter for screening for cardiovascular disorders (principal); I77.811 Abdominal aortic ectasia
CPT/HCPCS: 93979

== ENCOUNTER → 2022-09-28 | Outpatient (CLI) | payer MEDICARE ==
[2022-09-28 11:08] LABS: HCT 46.4 % (39.0-53.0); MCH 30.5 pg (25.0-35.0); MCHC 34.4 g/dL (31.0-37.0); MCV 88.8 fL (80.0-100.0); Mean Platelet Volume 7.8; Platelet Count 245 k/uL (150-450); RBC 5.23 m/uL (4.30-5.90); RDW 13.1 % (11.5-15.5); WBC 8.3 k/uL (3.8-10.6)
[2022-09-28 11:20] LABS: ALT 35 U/L (4-49); AST 35 U/L (17-59); African American GFR (CKD) 76 (>60 ml/min/1.73 sqM); Albumin 4.6 g/dL (3.5-5.0); Albumin/Globulin Ratio 1.2; Alkaline Phosphatase 101 U/L (38-126); Anion Gap 10 mmol/L; Blood Urea Nitrogen 19 mg/dL (9-20); Calcium 9.3 mg/dL (8.4-10.2); Carbon Dioxide 26 mmol/L (22-30); Chloride 102 mmol/L (98-107); Globulin 3.9 g/dL; Glucose 107 mg/dL (74-99); Non-African American GFR(CKD) 65 (>60 ml/min/1.73 sqM); Potassium 4.1 mmol/L (3.5-5.1); Sodium 138 mmol/L (137-145); Total Protein 8.5 g/dL (6.3-8.2)
[2022-09-28 12:43] LABS: Erythrocyte Sedimentation Rate 62 mm/hr (0-15)
--- NOTE | 2022-09-28 13:17 | CT ---
EXAMINATION TYPE: CT abdomen pelvis w con DATE OF EXAM: 09/28/2022 COMPARISON: None INDICATION: RLQ abdominal pain and diarrhea x3 days DLP: 601.1 mGycm, Automated exposure control for dose reduction was used. CONTRAST: 100 mL of Isovue 300. Study performed with Oral Contrast TECHNIQUE: Axial images were obtained from above the diaphragm to the pubic rami in the axial plane a t 5 mm thick sections. Reconstructed images are reviewed on the computer in the coronal plane. FINDINGS: Limited CT sections are obtained the lung bases. The lung bases are clear. CT ABDOMEN: Liver: There is a 1.3 cm cyst on the right lobe liver. Spleen: Normal Pancreas: Normal Adrenal glands: The adrenal glands are normal. Gallbladder: Decompressed Kidneys: Left kidney is atrophic and smaller than the right. No discrete masses are evident on either kidney.. No hydronephrosis is present. No cysts are present. Delayed images were obtained through the kidneys, which remain unremarkable. Aorta: Vascular calcification is within the aorta. Inferior vena cava: Normal. CT PELVIS: Sigmoid colon is very redundant with a loop extending towards the hepatic flexure. Diverticular freeman es are evident. Contrast passes through this region. Some wall thickening involves adjacent inflammat ory change is present. Correlate for mild diverticulitis. No free air is identified. No abscess forma tion is evident. There are loops of bowel which are incompletely distended or lack oral contrast limi ting their evaluation. Appendix: Normal as visualized. No dilatation or adjacent inflammatory change. Urinary bladder: Normal. Genitourinary structures: Prostate is prominent. Osseous structures: No suspicious lytic or sclerotic lesions. IMPRESSIONS: 1. Mild acute diverticulitis of a redundant sigmoid colon that extends into the right midabdomen. 2. The appendix is normal.
== END | disposition home or self-care (01) ==
LOC: RADCTMAIN 10:30
PROVIDERS: ATTEND Family Medicine
DX: K57.32 Diverticulitis of large intestine without perforation or abscess without bleeding (principal); R10.31 Right lower quadrant pain
CPT/HCPCS: 80053; 85652; 85027; 86140; 74177; 36415; Q9967